=== PATIENT | male | born 1945 | race Caucasian/White ===

== ENCOUNTER 2016-11-29 18:26 | Inpatient (IN) ==
[2016-11-29] MEDS ORDERED: *HR* Morphine 2 MG/ML SYRINGE ONE (20:30)
[2016-11-29] MEDS ORDERED: Aspirin 81 MG TAB.CHEW ONE (20:30)
[2016-11-29] MEDS ORDERED: Nitroglycerin 0.4 MG TAB.SUBL SL PRN (20:40)
--- NOTE | 2016-11-29 20:40 | Internal Med History&Physical ---
Date of Encounter: 11/29/16 Time of Encounter: 20:15 Assessment and Plan (1) Chest pain Current visit: No Status: Acute Acute chest pain-rule out ACS Troponin negative, will trend troponin Continue aspirin and statin Cardiology consult-discussed with Dr. Jane, advise to hold off on any other anticoagulation as patient is already on Xarelto EKG done at [facility] shows nonspecific ST-T changes EKG done in the hospital show slight ST changes in lateral leads Chest x-ray-no acute process Qualifiers: Chest pain type: unspecified Qualified Code(s): R07.9 - Chest pain, unspecified (2) CAD (coronary artery disease) Current visit: Yes Status: Acute History of CAD status post multiple stents Continue aspirin and statin Status post pacemaker about 6 years ago Cardiology consult Echocardiogram done in September 2015 shows LVEF of 40% with regional wall motion abnormalities and also mild LV diastolic dysfunction Qualifiers: Coronary Disease-Associated Artery/Lesion type: unspecified vessel or lesion type Associated angina: with stable angina Qualified Code(s): I25.118 - Atherosclerotic heart disease of [place] coronary artery with other forms of angina pectoris (3) Hypertension Current visit: No Status: Chronic Essential hypertension, uncontrolled, continue home medications, monitor Qualifiers: Hypertension type: essential hypertension Qualified Code(s): I10 - Essential (primary) hypertension (4) Hyperlipidemia Current visit: No Status: Chronic Continue statin Qualifiers: Hyperlipidemia type: mixed hyperlipidemia Qualified Code(s): E78.2 - Mixed hyperlipidemia (5) DM type 2 (diabetes mellitus, type 2) Current visit: No Status: Chronic Type 2 diabetes mellitus, [id number], hyperglycemia Insulin sliding scale and glucose checks Qualifiers: Diabetes mellitus complication status: with kidney complications Diabetes mellitus complication detail: with chronic kidney disease 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 use: with skilled nursing use Chronic kidney disease stage: stage 3 (moderate) Qualified Code(s): E11.22 - Type 2 diabetes mellitus with diabetic chronic kidney disease; N18.3 - Chronic kidney disease, stage 3 ( moderate); 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 (6) Blindness Current visit: No Status: 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 (7) Pulmonary embolism on long-term anticoagulation therapy Current visit: Yes Status: Acute History of DVT and pulmonary embolism, anticoagulated with Xarelto (8) CKD (chronic kidney disease), stage III Current visit: Yes Status: Chronic CKD stage III, creatinine and GFR likely at baseline, continued to monitor (9) COPD (chronic obstructive pulmonary disease) Current visit: Yes Status: Chronic Chronic COPD, not in exacerbation Continue Symbicort Qualifiers: COPD type: unspecified COPD Qualified Code(s): J44.9 - Chronic obstructive pulmonary disease, unspecified (10) DVT prophylaxis Current visit: Yes Status: Acute Anticoagulated with Xarelto, continue Internal Medicine - H&P: HPI Chief complaint: Chest pain Admitted From: Hospital to Hospital Transfer History of present illness: Mr. Curtis is a 71 year old male with past medical history of coronary artery disease status post stents, hypertension, hyperlipidemia, diabetes, history of PE and DVT on anticoagulation, CKD stage III, COPD and blindness. He presents as a direct admit from [facility]. He was transferred here for chest pain to rule out ACS. On examination patient is awake and alert. Not in any distress. Patient is blind and is hard of hearing, but able to provide good history. Patient states his chest pain has been going on for about 1-2 weeks, and symptoms have gradually worsened. Patient states he has been to the ED multiple times over the past week for chest pain but was discharged home. This morning he states chest pain was more severe, and he decided to go to the ED. Complains of left-sided pain radiating to his left arm and to his jaw. Patient rates it about 6/10 intensity initially. States it is sharp and intermittent. No aggravating factors. No other associated symptoms Patient has been given nitroglycerin and pain has improved. Pain is 2 out of 10 at present. Patient also complains of mild shortness of breath. Denies headache denies lightheadedness denies palpitations denies vomiting or abdominal pain. No family members present at the time of admission. Patient is being admitted for chest pain to rule out ACS. Initial troponin here is negative. Cardiology has been consulted. Patient has been explained about his condition and plan of care. He understood and agreed. No unanswered questions. CODE STATUS full code. Past Med Surg Social Fam HX - Past Medical History Medical history: asthma, cardiomyopathy, CHF, COPD, coronary artery disease, diabetes, hypertension, myocardial infarction, pulmonary embolus, renal disease , valvular heart disease, other Psychiatric history: no psych history, depression, panic disorder - Past Surgical History Surgical History: angioplasty/stent, cataract, herniorrhaphy, prostatectomy - Social History Smoking Status: Never smoker Smokeless Tobacco Status: No Alcohol use: none Drug use: none Internal Medicine - H&P: Meds Atorvastatin [Lipitor] 80 mg PO QPM 01/07/15 [History] Carvedilol [Coreg] 6.25 tab PO DAILY 01/07/15 [History] Clopidogrel [Plavix] 75 mg PO DAILY 01/07/15 [History] Esomeprazole Magnesium [Nexium] 40 mg PO QAM 01/07/15 [History] Fluticasone/Salmeterol [Advair 250-50 Diskus] 1 inh IH BID 01/07/15 [History] Furosemide [Lasix] 20 mg PO DAILY 01/07/15 [History] Gemfibrozil [Lopid] 600 mg PO BIDWM 01/07/15 [History] LORazepam [Ativan] 0.5 mg PO HS 01/07/15 [History] Losartan [Cozaar] 25 mg PO QPM 01/07/15 [History] Montelukast [Singulair] 10 mg PO QPM 01/07/15 [History] Nitroglycerin [Nitrostat] 0.4 mg SL Q5-6MIN PRN 01/07/15 [History] OxyCODONE/APAP 5/325 [Percocet 5/325 MG] 1 each PO Q6HR PRN 01/07/15 [History] Ranolazine [Ranexa] 500 mg PO BID 01/07/15 [History] Rivaroxaban [Xarelto] 15 mg PO QPM 01/07/15 [History] Sertraline [Zoloft] 50 mg PO QPM 01/07/15 [History] Sitagliptin Phosphate [Januvia] 50 mg PO QAM 01/07/15 [History] Tamsulosin HCl [Flomax] 1 cap PO DAILY 01/07/15 [History] GuaiFENesin/Dextromethorphan [Robitussin/Dm] 10 ml PO Q6H #1 udc 03/11/15 [Rx] Nitroglycerin 0.4 mg SL Q5MIN PRN #1 vial 03/11/15 [Rx] Isosorbide MONOnitrate (24 HR) [Imdur] 60 mg PO BID #0 02/21/16 [Rx] HYDROcodone/Acet 5/325 mg [[place] 5-325 mg] 1 tab PO Q6H #10 tab 10/22/16 [Rx] Ondansetron ODT [Zofran ODT] 4 mg SL Q6HR #24 tab.rapdis 10/22/16 [Rx] Buspirone HCl [Buspar] 7.5 mg PO DAILY 11/22/16 [History] Famotidine [Heartburn Prevention] 20 mg PO DAILY 11/22/16 [History] Spironolactone [Aldactone] 25 mg PO DAILY 11/22/16 [History] Allergies No Known Allergies Allergy (Verified 01/06/15 18:52) All Systems PM: A 10-system review of systems was performed and is negative for pertinent findings except as documented above in the HPI. - Constitutional Constitutional: as per HPI, fatigue, weakness - EENT Eyes: other visual disturbances (patient is blind) - Cardiovascular Cardiovascular ROS IM: chest pain, dyspnea, dyspnea on exertion, no diaphoresis , no lightheadedness, no orthopnea, no syncope - Respiratory Respiratory: dyspnea, dyspnea on exertion, no wheezing, no chest congestion - Gastrointestinal Gastrointestinal: nausea, no abdominal pain, no cramping, no diarrhea, no vomiting - Musculoskeletal Musculoskeletal ROS IM: no arthralgias - Neurological Neurological ROS: no abnormal gait, no abnormal speech, no dizziness, no focal weakness, no lack of coordination - Constitutional Vitals: Temp Pulse Resp BP Pulse Ox 98.2 F 67 18 162/89 98 11/29/16 20:28 11/29/16 20:28 11/29/16 20:28 11/29/16 20:28 11/29/16 20:28 General appearance: Present: A&O X 3, pleasant, no acute distress, answers questions appropriately Exam: Patient is blind, and is also hard of hearing-but able to provide a good history - Head Head exam: Present: atraumatic - Eye Eye exam: Absent: scleral icterus Additional comments: Patient is blind - ENT ENT exam: Present: mucous membranes moist - Neck Neck exam general surgery: Present: supple - Respiratory Respiratory exam: Present: CTAB. Absent: rales, rhonchi, wheezes - Cardiovascular Cardiovascular exam: Present: RRR, +S1, +S2, systolic murmur - GI/Abdominal GI/Abdominal exam: Present: soft. Absent: distended, guarding, tenderness - Extremities Exam Extremities exam: Present: radial pulses palpable and symetrical. Absent: cyanotic, pedal edema - Neurological Exam Neurological exam: Present: alert, oriented X3, no focal deficits Internal Med - H&P Results - Labs CBC & Chem 7: 11/29/16 20:52 11/29/16 20:52
[2016-11-29] MEDS ORDERED: Acetaminophen 325 MG TABLET PO PRN (20:50)
[2016-11-29] MEDS ORDERED: Ondansetron 4 MG/2 ML VIAL IVP PRN (20:50)
[2016-11-29] MEDS ORDERED: *HR* Morphine 2 MG/ML SYRINGE IVP PRN (20:50)
[2016-11-29] MEDS ORDERED: Naloxone 0.4 MG/ML INJ IVP PRN (20:50)
[2016-11-29 21:09] LABS: Hematocrit 46.8 % (37.5-50.1); Hemoglobin 14.4 g/dL (12.9-16.9); Mean Corpuscular HGB Conc 30.8 g/dL (31.6-35.5); Mean Corpuscular Hemoglobin 24.5 pg (28.0-33.3); Mean Corpuscular Volume 79.6 fL (83.0-100.0); Mean Platelet Volume 10.5 fL (9.4-12.4); Platelet Count 221 K/mcL (140-400); Red Blood Count 5.88 M/mcL (4.19-5.50); Red Cell Distribution Width 16.2 % (11.5-14.5)
[2016-11-29 21:21] LABS: INR 1.4; Prothrombin Time 15.5 Seconds (9.4-12.1)
[2016-11-29 21:25] LABS: Albumin 3.5 g/dL (3.5-5.0); Albumin/Globulin Ratio 0.8 (1.1-2.2); Bilirubin,Total 0.5 mg/dL (0.2-1.2); Calcium 9.5 mg/dL (8.6-10.8); Globulin 4.2 g/dL (2.4-3.5); Potassium 4.3 mEq/L (3.5-4.5); Total Protein 7.7 g/dL (6.0-8.3)
[2016-11-29] MEDS ORDERED: Dextrose Gel 15 GM PO PRN ×2 (21:54)
[2016-11-29] MEDS ORDERED: *HR* Dextrose 50 % in Water (Syg) 50 ML SYRINGE IVP PRN (21:54)
[2016-11-29] MEDS ORDERED: D5% in Water 1,000 ML IVC PRN (21:54)
[2016-11-29] MEDS: Budesonide/Formoterol 80/4.5 MDI IH SCH (23:28)
[2016-11-29] MEDS: Ranolazine 500 MG TAB.ER.12H PO SCH (23:29)
[2016-11-29] MEDS: Famotidine 20 MG TABLET PO SCH (23:29)
[2016-11-30] MEDS: Insulin LISPRO 300 UNITS/3 ML VIAL SQ SCH ×3 (02:10→11:58)
[2016-11-30 03:58] LABS: Hematocrit 41.9 % (37.5-50.1); Hemoglobin 13.2 g/dL (12.9-16.9); Mean Corpuscular HGB Conc 31.5 g/dL (31.6-35.5); Mean Corpuscular Volume 79.2 fL (83.0-100.0); Mean Platelet Volume 11.2 fL (9.4-12.4); Platelet Count 187 K/mcL (140-400); Red Blood Count 5.29 M/mcL (4.19-5.50); Red Cell Distribution Width 16.3 % (11.5-14.5)
[2016-11-30 04:07] LABS: INR 1.3; Prothrombin Time 14.2 Seconds (9.4-12.1)
[2016-11-30 04:12] LABS: Calcium 8.7 mg/dL (8.6-10.8); Potassium 4.2 mEq/L (3.5-4.5)
[2016-11-30] MEDS: Budesonide/Formoterol 80/4.5 MDI IH SCH (07:56)
--- NOTE | 2016-11-30 08:02 | Cardiology Consult Note ---
<Toy Cavanaugh - Last Filed: 11/30/16 11:12> Date of Encounter: 11/30/16 Time of Encounter: 08:00 Assessment and Plan (1) Chest pain Current Visit: No Status: Acute Per Cardiology: Patient experiencing atypical left anterior chest wall pain reproducible with palpation and worsening with movement. Also, having continuous left shoulder and jaw pain. Last stress test September 2015 showed gated EF 40%, no fredis-infarct ischemia noted. Last cardiology note reviewed from December 2015 and patient was on long-acting nitrate and on Ranexa 500 mg by mouth twice a day. Will increase to 1000 mg by mouth twice a day. Will resume Imdur. Troponins negative 3. 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 Discussed and reviewed with Dr. Jane, recommend medical management. Has follow-up scheduled with cardiology in the next few weeks. We' ll sign off, re-consult as needed. Qualifiers: Chest pain type: unspecified Qualified Code(s): R07.9 - Chest pain, unspecified (2) CAD (coronary artery disease) Current Visit: Yes Status: Chronic Per Cardiology: Last heart catheterization at the [facility] December 2014 showed patent proximal LAD stents with 20% in-stent restenosis, proximal circumflex 40% with a small OM 80% lesion, patent mid RCA stents, proximal RCA 30%, distal RCA 20%. Per last cardiology office note, patient had catheterization at [facility] May 2015 which showed left main 25%, 50% in-stent restenosis of proximal LAD with FFR showing no hemodynamic significance, mid LAD 20%, proximal RCA 20% in-stent restenosis, 10% mid RCA, distal RCA 20%, proximal circumflex 20%, and mid circumflex 10% lesions. On Ranexa, BB, and ARB. Will add asa. Qualifiers: Coronary Disease-Associated Artery/Lesion type: unspecified vessel or lesion type Associated angina: with stable angina Qualified Code(s): I25.118 - Atherosclerotic heart disease of [place] coronary artery with other forms of angina pectoris (3) Pulmonary embolism on long-term anticoagulation therapy Current Visit: Yes Status: Chronic Per Cardiology: Patient with history of DVT and PE. Appears to be on Xarelto-- patient believes has been discontinued since September 2016. Recommend continue if able and deemed clinically appropriate. (4) Valvular heart disease Current Visit: No Status: Chronic Per Cardiology: Last echo September 2015 showed EF 40%, mild diastolic dysfunction, normal RV structure and function, moderate aortic regurgitation, and mild MR. her last office note patient has been seen by Dr. Lilian ORTIZ, patient unaware of any valvular procedures. Will follow-up in outpatient setting. (5) History of cardiac pacemaker Current Visit: Yes Status: Chronic Per Cardiology: Patient reports history of pacemaker and concerns of "not functioning properly ". No significant events noted on telemetry. Patient does have [employer] pacemaker with dual chamber pacer check normal October 24, 2016 with one ventricular high rate of 6 beats September 06, 2016 with battery life greater than 5 years. Will follow-up in 6 months with pacer check as scheduled. Discussion w patient/family: The assessment and plan as outlined above was discussed with the patient who expressed understanding and agreement. All questions were answered. Thank you for involving us in the care of your patient. Please call with any questions. Consult to palliative care placed for evaluation and clarification regarding potential hospice care and CODE STATUS. History of Present Illness Consult date: 11/30/16 Consult reason: CP Chief complaint: CP History of present illness: Mr. Curtis is a 71 year old male with a relevant past medical history of CAD, diabetes mellitus type 2, hypertension, hyperlipidemia, legally blind, GERD, COPD, CK D stage IIIB, history of DVT and PE, and pacemaker. Cardiology consult for chest pain. Patient reports left anterior chest wall pinpoint discomfort worse with palpation and movement. Patient also reports experiencing left-sided jaw pain and left shoulder pain continuous. He reports shortness of breath at rest and with exertion about baseline. Reports overall fatigue about baseline. He reports concerns" pacer not working properly ". He reports he believes in [place] he was recommended to be changed in May 2016. Denies any dizziness , syncope, falls. Denies any active bleeding or blood loss. Patient currently on Xarelto, however patient reports was discontinued September 2016 when he was enrolled " hospice care". He reports he lives at home alone and nurses provide him pills. He reports he believes he is DNR DNI, however listed currently is full code. He reports recently was residing in a alf in [place]. Past Med Surg Social Fam HX - Past Medical History Attestation: Yes The following information was validated with the patient. 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) Medical history: asthma, cardiomyopathy, CHF, COPD, coronary artery disease, diabetes, hypertension, myocardial infarction, pulmonary embolus, renal disease , valvular heart disease, other Psychiatric history: no psych history, depression, panic disorder - Past Surgical History Surgical History: angioplasty/stent, cataract, herniorrhaphy, prostatectomy - Social History Smoking Status: Never smoker Smokeless Tobacco Status: No Alcohol use: none Drug use: none Medications and Allergies Carvedilol [Coreg] 6.25 tab PO DAILY 01/07/15 [History] Furosemide [Lasix] 20 mg PO DAILY 01/07/15 [History] Losartan [Cozaar] 25 mg PO QPM 01/07/15 [History] Rivaroxaban [Xarelto] 15 mg PO QPM 01/07/15 [History] Sertraline [Zoloft] 50 mg PO QPM 01/07/15 [History] Sitagliptin Phosphate [Januvia] 50 mg PO QAM 01/07/15 [History] Tamsulosin HCl [Flomax] 0.4 mg PO DAILY 01/07/15 [History] Isosorbide MONOnitrate (24 HR) [Imdur] 60 mg PO BID #0 02/21/16 [Rx] Buspirone HCl [Buspar] 7.5 mg PO DAILY 11/22/16 [History] Spironolactone [Aldactone] 25 mg PO DAILY 11/22/16 [History] Tramadol HCl [Ultram] 50 mg PO Q4H PRN 11/29/16 [History] Allergies No Known Allergies Allergy (Verified 01/06/15 18:52) All Systems Review: A 10-system review of systems was performed and is negative for pertinent findings except as documented above in the HPI. - Constitutional Constitutional: fatigue - Cardiovascular Cardiovascular: as per HPI, chest pain at rest, dyspnea at rest, dyspnea on exertion, radiating jaw, neck or arm pain Physical Examination Vital Signs, Last 4 Hours Resp Pulse Ox 11/30/16 07:56 20 99 Selected Entries 11/29/16 20:28 11/29/16 23:31 11/30/16 03:24 Temperature 97.9 F Pulse Rate 67 Respiratory Rate 18 Blood Pressure 162/89 136/74 149/91 General: Conversant, No Apparent Distress HEENT: Atraumatic, Normocephaly, Mucus Membranes Moist, Other (Legally blind, mild hard of hearing) Neck: No JVD, Normal carotid pulses Cardiac: Reg Rate and Rhythm, Normal S1 and S2, No Murmur Lungs: Normal Breath Sounds, No Wheeze, Rales, Rhonchi Neuro: Alert and responsive, No focal deficits noted Abdomen: Soft, Non-Tender Skin: No rashes noted on visualized skin Musculoskeletal: Other (Left anterior chest wall tenderness reproducible today with palpation) Extremities: No Edema, Normal Pulses Results 11/30/16 03:15 11/30/16 03:15 Lab Results Laboratory Tests 11/29/16 11/29/16 11/30/16 11:45 20:52 03:15 INR 1.3 Creatinine 1.59 H 1.75 H Est GFR (Non-Af Amer) 43 L 38 L 11/30/16 03:15 INR Creatinine 1.54 H Est GFR (Non-Af Amer) 45 L 11/29/16 11/29/16 11/29/16 20:52 20:52 20:54 Magnesium 2.0 AST 24 ALT 19 Troponin I 0.02 B-Natriuretic Peptide 28 11/30/16 03:15 Magnesium AST ALT Troponin I 0.02 B-Natriuretic Peptide ITS Impressions Chest X-Ray 11/29/16 20:52 IMPRESSION: No acute process. D/ / Freddy Terrazas MD / Freddy Terrazas MD Interpreting Provider: Freddy Terrazas MD Intake & Output 11/27/16 11/28/16 11/29/16 11/30/16 23:59 23:59 23:59 23:59 Output Total 450 / 450 150 / 150 Balance -450 / -450 -150 / -150 Weight 103.7 kg 103.7 kg Active Medications Acetaminophen (Tylenol) 650 mg PO Q6HR PRN PRN Reason: Mild Pain (1-3) Stop: 05/31/17 20:51 Budesonide/Formoterol Fumarate (Symbicort) 2 puff IH BIDR KANA Stop: 05/31/17 22:01 Last Admin: 11/30/16 07:56 Dose: 2 puff Carvedilol (Coreg) 6.25 mg PO DAILY [facility] PRN Reason: Protocol Stop: 06/01/17 09:01 Dextrose/Water (Dextrose 50% (Syg)) 25 ml IVP AD PRN PRN Reason: Hypoglycemia Stop: 05/31/17 21:55 Famotidine (Pepcid) 20 mg PO DAILY [facility] PRN Reason: Protocol Stop: 05/31/17 20:46 Last Admin: 11/29/16 23:29 Dose: 20 mg Gemfibrozil (Lopid) 600 mg PO BIDWM [facility] Stop: 06/01/17 08:01 Glucagon (Glucagen) 1 mg IM ONCE PRN PRN Reason: Hypoglycemia Stop: 05/31/17 21:55 Glucose (Gluctose) 15 gm PO ONCE PRN PRN Reason: Hypoglycemia Stop: 05/31/17 21:55 Glucose (Gluctose) 30 gm PO ONCE PRN PRN Reason: Hypoglycemia Stop: 05/31/17 21:55 Dextrose (Dextrose 5%) 1,000 mls @ 100 mls/hr IVC .Q10H PRN PRN Reason: HYPOGLYCEMIA Stop: 05/31/17 21:55 Insulin Human Lispro (Humalog) 0 units SQ Q6HR [facility] PRN Reason: Protocol Stop: 06/01/17 00:01 Last Admin: 11/30/16 07:00 Dose: Not Given Losartan Potassium (Cozaar) 25 mg PO QPM [facility] PRN Reason: Protocol Stop: 06/01/17 18:01 Morphine Sulfate (Morphine Sulfate) 2 mg IVP Q4HR PRN PRN Reason: Severe Pain (7-10) Stop: 05/31/17 20:51 Naloxone HCl (Narcan) 0.4 mg IVP Q2MIN PRN PRN Reason: Opioid Reversal Stop: 05/31/17 20:51 Nitroglycerin (Nitroglycerin) 0.4 mg SL Q5MIN PRN PRN Reason: Chest Pain Stop: 05/31/17 20:41 Ondansetron HCl (Zofran) 4 mg IVP Q8HR PRN PRN Reason: Nausea And Vomiting Stop: 05/31/17 20:51 Ranolazine (Ranexa) 500 mg PO BID [facility] Stop: 05/31/17 21:01 Last Admin: 06/23/17 23:29 Dose: 500 mg Rivaroxaban (Xarelto) 15 mg PO QPM [facility] Stop: 06/01/17 18:01 Spironolactone (Aldactone) 25 mg PO DAILY [facility] Stop: 06/01/17 09:01 Tamsulosin HCl (Flomax) 0.4 mg PO HS [facility] PRN Reason: Protocol Stop: 06/01/17 21:01 - Imaging and Cardiology Chest Xray: report reviewed Stress Test: report reviewed Cardiac cath: report reviewed - EKG Interpretation EKG results cardiology: personally reviewed, normal ECG, sinus rhythm, other ( Currently sinus rhythm in the 70s, 24 times reviewed with average heart rate 68 , no significant events noted) Consult Discharge Plan - Plan Referrals: NO,PCP [Primary Care Provider] - <Soraida Jane - Last Filed: 11/30/16 11:26> Date of Encounter: 11/30/16 Assessment and Plan Discussion w patient/family: The assessment and plan as outlined above was discussed with the patient and/or family members who expressed understanding and agreement. All questions were answered. Thank you for involving us in the care of your patient. Please call with any questions. History of Present Illness History of present illness: Mr. Curtis is a 71 year old male All Systems Review: A 10-system review of systems was performed and is negative for pertinent findings except as documented above in the HPI. Physical Examination Vital Signs, Last 4 Hours Temp Pulse Resp BP Pulse Ox 11/30/16 08:08 97.7 F 68 18 133/73 95 11/30/16 08:00 95 11/30/16 07:56 20 99 Results 11/30/16 03:15 11/30/16 03:15 Lab Results 11/29/16 11/29/16 11/29/16 20:52 20:52 20:52 WBC 10.3 Hgb 14.4 Hct 46.8 Plt Count 221 INR 1.4 Sodium Potassium Chloride Carbon Dioxide BUN Creatinine Glucose Calcium Magnesium Total Bilirubin AST ALT Alkaline Phosphatase Troponin I 0.02 B-Natriuretic Peptide 11/29/16 11/29/16 11/30/16 20:52 20:54 03:15 WBC Hgb Hct Plt Count INR Sodium 140 Potassium 4.3 Chloride 106 Carbon Dioxide 26 BUN 25 Creatinine 1.75 H Glucose 107 H Calcium 9.5 Magnesium 2.0 Total Bilirubin 0.5 AST 24 ALT 19 Alkaline Phosphatase 63 Troponin I 0.02 B-Natriuretic Peptide 28 11/30/16 11/30/16 11/30/16 03:15 03:15 03:15 WBC 9.5 Hgb 13.2 Hct 41.9 Plt Count 187 INR 1.3 Sodium 140 Potassium 4.2 Chloride 108 Carbon Dioxide 23 BUN 25 Creatinine 1.54 H Glucose 103 H Calcium 8.7 Magnesium Total Bilirubin AST ALT Alkaline Phosphatase Troponin I B-Natriuretic Peptide 11/30/16 08:25 WBC Hgb Hct Plt Count INR Sodium Potassium Chloride Carbon Dioxide BUN Creatinine Glucose Calcium Magnesium Total Bilirubin AST ALT Alkaline Phosphatase Troponin I 0.01 B-Natriuretic Peptide - Attending Attestation I examined this patient and my medical decision-making was reviewed with the SENIOR TELECOMMUNICATIONS TECHNICIAN/PA/Advanced Practice Nurse/Resident Physician. I agree with the documented findings, disposition and treatment plan. We have been asked to evaluate Mr. Curtis for chest pain which appears to be largely reproducible on exam. His troponins are negative and there are no new ECG changes when compared to prior ECG. No further testing is warranted at this time. Recommend continued medical management. In addition, PPM was recently interrogated demonstrating normal function and battery longevity 5 years. Will sign off. Please call with questions.
[2016-11-30] MEDS: Famotidine 20 MG TABLET PO SCH (08:09)
[2016-11-30] MEDS: Ranolazine 500 MG TAB.ER.12H PO SCH (08:09)
[2016-11-30] MEDS ORDERED: Spironolactone 25 MG TABLET PO SCH (09:00)
[2016-11-30] MEDS ORDERED: Ranolazine 500 MG TAB.ER.12H PO SCH (10:05)
[2016-11-30] MEDS ORDERED: Aspirin 81 MG TAB.CHEW PO SCH (10:45)
[2016-11-30] MEDS ORDERED: Isosorbide MONOnitrate (24 HR) 30 MG TAB.ER.24H PO SCH (10:45)
[2016-11-30 11:23] VITALS: BP 123/74
--- NOTE | 2016-11-30 12:23 | Discharge Summary ---
Date of Encounter: 11/30/16 Time of Encounter: 12:21 - Discharge Diagnosis (1) Chest pain Priority: Primary Status: Acute Comments: Patient experiencing atypical left anterior chest wall pain reproducible with palpation and worsening with movement. Also, having continuous left shoulder and jaw pain. Last stress test September 2015 showed gated EF 40%, no fredis-infarct ischemia noted. Increase Ranexa to 1000 mg by mouth twice a day. Will resume Imdur. Qualifiers: Chest pain type: unspecified Qualified Code(s): R07.9 - Chest pain, unspecified (2) DM type 2 (diabetes mellitus, type 2) Priority: Secondary Status: Chronic Qualifiers: Diabetes mellitus complication status: with kidney complications Diabetes mellitus complication detail: with chronic kidney disease Diabetes mellitus jail insulin use: with terminal worker use Chronic kidney disease stage: stage 3 (moderate) Qualified Code(s): E11.22 - Type 2 diabetes mellitus with diabetic chronic kidney disease; N18.3 - Chronic kidney disease, stage 3 ( moderate); Z79.4 - terminal worker (current) use of insulin (3) Blindness Priority: Secondary Status: Chronic (4) Valvular heart disease Priority: Secondary Status: Chronic Comments: ast echo September 2015 showed EF 40%, mild diastolic dysfunction, normal RV structure and function, moderate aortic regurgitation, and mild MR. her last office note patient has been seen by Dr. Lilian ORTIZ, patient unaware of any valvular procedures (5) Pulmonary embolism on long-term anticoagulation therapy Priority: Secondary Status: Chronic Comments: on Xarelto (6) CKD (chronic kidney disease), stage III Priority: Secondary Status: Chronic (7) COPD (chronic obstructive pulmonary disease) Priority: Secondary Status: Chronic Qualifiers: COPD type: unspecified COPD Qualified Code(s): J44.9 - Chronic obstructive pulmonary disease, unspecified (8) History of cardiac pacemaker Priority: Secondary Status: Chronic - Discharge Medications Prescriptions: Isosorbide MONOnitrate (24 HR) [Imdur] 60 mg PO DAILY #30 tab.er.24h LORazepam [Ativan] 0.5 mg PO HS #15 tablet Oxycodone HCl/Acetaminophen [Percocet 5-325 mg Tablet] 1 tab PO Q6H PRN #20 tablet PRN Reason: Pain Ranolazine [Ranexa] 1,000 mg PO BID #60 tab.er.12h Rivaroxaban [Xarelto] 15 mg PO QPM #30 tablet Home Medications: Carvedilol [Coreg] 6.25 tab PO DAILY 01/07/15 [History] Furosemide [Lasix] 20 mg PO DAILY 01/07/15 [History] Losartan [Cozaar] 25 mg PO QPM 01/07/15 [History] Sertraline [Zoloft] 50 mg PO QPM 01/07/15 [History] Sitagliptin Phosphate [Januvia] 50 mg PO QAM 01/07/15 [History] Tamsulosin HCl [Flomax] 0.4 mg PO DAILY 01/07/15 [History] Buspirone HCl [Buspar] 7.5 mg PO DAILY 11/22/16 [History] Spironolactone [Aldactone] 25 mg PO DAILY 11/22/16 [History] Tramadol HCl [Ultram] 50 mg PO Q4H PRN 11/29/16 [History] Atorvastatin Calcium [Lipitor] 80 mg PO DAILY 11/30/16 [History] Esomeprazole Magnesium [Nexium] 40 mg PO DAILY 11/30/16 [History] Gemfibrozil [Lopid] 600 mg PO DAILY 11/30/16 [History] Isosorbide MONOnitrate (24 HR) [Imdur] 60 mg PO DAILY #30 tab.er.24h 11/30/16 [ Rx] LORazepam [Ativan] 0.5 mg PO HS #15 tablet 11/30/16 [Rx] Montelukast [Singulair] 10 mg PO DAILY 11/30/16 [History] Oxycodone HCl/Acetaminophen [Percocet 5-325 mg Tablet] 1 tab PO Q6H PRN #20 tablet 11/30/16 [Rx] Ranolazine [Ranexa] 1,000 mg PO BID #60 tab.er.12h 11/30/16 [Rx] Rivaroxaban [Xarelto] 15 mg PO QPM #30 tablet 11/30/16 [Rx] Allergies/Adverse Reactions: Allergies No Known Allergies Allergy (Verified 01/06/15 18:52) Procedures/tests Complete & Pending: Procedures Performed prior 72 hours Category Date Time Status ECG 12 lead ECG [ECG] AM 0600 Y 11/30/16 06:00 Ordered Date of admission: 11/29/16 20:15 Primary care physician: PCP NO Consults: 11/29/16 20:47 Consult to Cardiology [CONS] Stat Comment: discussed with Dr Jane Consulting Provider: Cardiology Whit Reason for Consult: Chest pain, ST changes on EKG Time Notified: 20:47 Call Completed: Yes 11/29/16 20:53 Consult to Nutrition [CONS] Routine Comment: Consulting Provider: NUTRITION Reason for Dietary Consult: MST Score Consult to Sales Development Director [CONS] Routine Reason for SW Consult: discharge planning, prior SNF placement--blind, [facility] 11/30/16 10:04 Consult to Palliative Care [CONS] Routine Comment: discussed with Michelle Consulting Provider: Palliative Care Whit Reason for Consult: Patient reports in "Hospice Care" at home, wishes to be DNR/DNI. Call Completed: Yes - Patient Status Disposition: Home Health Service Condition: Fair Overall status at discharge: patient is progressing back to baseline - Discharge Instructions Follow Up With: NO,PCP [Primary Care Provider] - Additional Instructions: Follow-up with primary care physician within the next 7 days. Increase dose of Ranexa up to 2000 g twice a day, continue Imdur. Follow up with cardiology within the next month - Diet and Activity Activity: increase activity as tolerated Diet: diabetic diet Hospital course: Mr. Curtis is a 71 year old male with a relevant past medical history of CAD, diabetes mellitus type 2 not insulin-dependent, hypertension, hyperlipidemia, legally blind, GERD, COPD not oxygen dependent, CK D stage IIIB, history of DVT and PE on Xarelto, systolic CHF and pacemaker. Patient reported left anterior chest wall pinpoint discomfort worse with palpation and movement. Patient also reports experiencing left-sided jaw pain and left shoulder pain continuous. Shortness of breath at rest and with exertion about baseline. Reported overall fatigue about baseline. Cconcerns" pacer not working properly ". He reports he believes in [place] he was recommended to be changed in May 2016. Denies any dizziness, syncope, falls. Denies any active bleeding or blood loss. He is DNR DNI. He reports recently was residing in a penitentiary in [place]. Troponins negative 3. 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 Last heart catheterization at the [facility] December 2014 showed patent proximal LAD stents with 20% in-stent restenosis, proximal circumflex 40% with a small OM 80% lesion, patent mid RCA stents, proximal RCA 30%, distal RCA 20%. Catheterization at [facility] May 2015 which showed left main 25%, 50% in-stent restenosis of proximal LAD with FFR showing no hemodynamic significance, mid LAD 20%, proximal RCA 20% in-stent restenosis, 10% mid RCA, distal RCA 20%, proximal circumflex 20%, and mid circumflex 10% lesions. The patient was evaluated by cardiology, Ranexa was increased to 1000 mg twice a day and Imdur was restarted. 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 Absent: lymphadenopathy - Respiratory Respiratory exam: Present: decreased breath sounds, CTAB. Absent: accessory muscle use, rales, rhonchi, wheezes - Cardiovascular Cardiovascular exam: Present: RRR, +S1, +S2. Absent: diastolic murmur, gallop, rubs, systolic murmur - GI/Abdominal GI/Abdominal exam: Present: normal bowel sounds, soft, no peritoneal signs. Absent: distended, tenderness - Extremities Exam Extremities exam: Present: warm, radial pulses palpable and symetrical. Absent : calf tenderness, cyanotic, pedal edema - Neurological Exam Neurological exam: Present: CN II-XII intact, oriented X3, no focal deficits. Absent: pronater drift, facial droop, speech deficit - Skin Skin exam: Present: dry, intact
--- NOTE | 2016-11-30 12:34 | Physician Discharge Referral ---
Home Health/Hosp Referral Info Transfer to: Home Health Provider in Charge Post Discharge: PCP - Diagnosis (1) Chest pain Status: Acute (2) DM type 2 (diabetes mellitus, type 2) Status: Chronic (3) Blindness Status: Chronic (4) Valvular heart disease Status: Chronic (5) Pulmonary embolism on long-term anticoagulation therapy Status: Chronic (6) CKD (chronic kidney disease), stage III Status: Chronic (7) COPD (chronic obstructive pulmonary disease) Status: Chronic (8) History of cardiac pacemaker Status: Chronic - Respiratory Orders Smoking Cessation: Smoking cessation has been advised. For more information, call the [place] Tobacco Quit Line at 7-993-FCHU-NOW. - Diet/Nutrition Diet/Nutrition Orders: No Added Salt (CATRINA) - Services Needed Following services are medically necessary services: Home Health Aide Home Care Orders: Follow-up with primary care physician within the next 7 days. Increase dose of Ranexa up to 2000 g twice a day, continue Imdur. Follow up with cardiology within the next month - Transfer Medications Prescriptions: Isosorbide MONOnitrate (24 HR) [Imdur] 60 mg PO DAILY #30 tab.er.24h LORazepam [Ativan] 0.5 mg PO HS #15 tablet Oxycodone HCl/Acetaminophen [Percocet 5-325 mg Tablet] 1 tab PO Q6H PRN #20 tablet PRN Reason: Pain Ranolazine [Ranexa] 1,000 mg PO BID #60 tab.er.12h Rivaroxaban [Xarelto] 15 mg PO QPM #30 tablet Home Medications: Carvedilol [Coreg] 6.25 tab PO DAILY 01/07/15 [History] Furosemide [Lasix] 20 mg PO DAILY 01/07/15 [History] Losartan [Cozaar] 25 mg PO QPM 01/07/15 [History] Sertraline [Zoloft] 50 mg PO QPM 01/07/15 [History] Sitagliptin Phosphate [Januvia] 50 mg PO QAM 01/07/15 [History] Tamsulosin HCl [Flomax] 0.4 mg PO DAILY 01/07/15 [History] Buspirone HCl [Buspar] 7.5 mg PO DAILY 11/22/16 [History] Spironolactone [Aldactone] 25 mg PO DAILY 11/22/16 [History] Tramadol HCl [Ultram] 50 mg PO Q4H PRN 11/29/16 [History] Atorvastatin Calcium [Lipitor] 80 mg PO DAILY 11/30/16 [History] Esomeprazole Magnesium [Nexium] 40 mg PO DAILY 11/30/16 [History] Gemfibrozil [Lopid] 600 mg PO DAILY 11/30/16 [History] Isosorbide MONOnitrate (24 HR) [Imdur] 60 mg PO DAILY #30 tab.er.24h 11/30/16 [ Rx] LORazepam [Ativan] 0.5 mg PO HS #15 tablet 11/30/16 [Rx] Montelukast [Singulair] 10 mg PO DAILY 11/30/16 [History] Oxycodone HCl/Acetaminophen [Percocet 5-325 mg Tablet] 1 tab PO Q6H PRN #20 tablet 11/30/16 [Rx] Ranolazine [Ranexa] 1,000 mg PO BID #60 tab.er.12h 11/30/16 [Rx] Rivaroxaban [Xarelto] 15 mg PO QPM #30 tablet 11/30/16 [Rx] Allergies/Adverse Reactions: Allergies No Known Allergies Allergy (Verified 01/06/15 18:52) Certification: Further, I certify that my clinical findings support that this patient is homebound (i.e. absences from home require considerable and taxing effort and are for medical reasons or holiness services or infrequently or short duration when for other reasons) because: Homebound Reason: Patient requires assistance of a person or device to safely leave home Attestation: My signature below is to certify that this patient is under my care and that I, or nurse practitioner, or a physician's printing bindery assistant working with me, has a face-to -face encounter with this patient.
[2016-11-30] MEDS ORDERED: Mag Hydrox/Al Hydrox/Simeth 30 ML UDC PO PRN (14:15)
[2016-11-30] MEDS ORDERED: *HR* Rivaroxaban 15 MG TABLET PO SCH (18:00)
--- NOTE | 2016-12-01 12:13 | Electrocardiograph Report ---
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
== END 2016-11-30 16:11 | disposition home health service (06) | DRG 303 ==
LOC: 2ANU
PROVIDERS: ADMIT Internal Medicine; ATTEND Internal Medicine

== ENCOUNTER 2017-02-03 09:17 | Observation (INO) ==
[2017-02-03] MEDS ORDERED: Lidocaine -MPF 1% 2 ML VIAL ID ONE (10:00)
[2017-02-03] MEDS ORDERED: Plasma-Lyte A (PH 7.4) 1,000 ML IVC SCH ×2 (10:00→11:30)
[2017-02-03] MEDS ORDERED: Albuterol 2.5 MG/3 ML NEBULIZER IH ONE ×2 (10:00→11:20)
[2017-02-03] MEDS ORDERED: cefOXitin 2,000 MG in D5% in Water (Mini-Bag+) 100 ML IVPB ONE (10:00)
--- NOTE | 2017-02-03 10:00 | Anesthesia Evaluation PreOp ---
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 MANAGER History: Denies Any Significant HX, Other (blind bilateral eyes) Other Medical History: Diabetes Type II Anesthesia History: No Prior Anesthetic Complications, Past Anesthesia (Hernia, prostatectomy) Alcohol Use: none Drug use: none Medications and Allergies Carvedilol [Coreg] 6.25 tab PO DAILY 01/07/15 [History] Furosemide [Lasix] 20 mg PO DAILY 01/07/15 [History] Losartan [Cozaar] 25 mg PO QPM 01/07/15 [History] Sertraline [Zoloft] 50 mg PO QPM 01/07/15 [History] Sitagliptin Phosphate [Januvia] 50 mg PO QAM 01/07/15 [History] Tamsulosin HCl [Flomax] 0.4 mg PO DAILY 01/07/15 [History] Buspirone HCl [Buspar] 7.5 mg PO DAILY 11/22/16 [History] Spironolactone [Aldactone] 25 mg PO DAILY 11/22/16 [History] Tramadol HCl [Ultram] 50 mg PO Q4H PRN 11/29/16 [History] Atorvastatin Calcium [Lipitor] 80 mg PO DAILY 11/30/16 [History] Esomeprazole Magnesium [Nexium] 40 mg PO DAILY 11/30/16 [History] Gemfibrozil [Lopid] 600 mg PO DAILY 11/30/16 [History] Isosorbide MONOnitrate (24 HR) [Imdur] 60 mg PO DAILY #30 tab.er.24h 11/30/16 [ Rx] LORazepam [Ativan] 0.5 mg PO HS #15 tablet 11/30/16 [Rx] Montelukast [Singulair] 10 mg PO DAILY 11/30/16 [History] Omeprazole [PriLOSEC] 40 mg PO DAILY #30 cap 11/30/16 [Rx] Oxycodone HCl/Acetaminophen [Percocet 5-325 mg Tablet] 1 tab PO Q6H PRN #20 tablet 11/30/16 [Rx] Ranolazine [Ranexa] 1,000 mg PO BID #60 tab.er.12h 11/30/16 [Rx] Rivaroxaban [Xarelto] 15 mg PO QPM #30 tablet 11/30/16 [Rx] 3 Allergy/AdvReac Type Severity Reaction Status Date / Time No Known Allergies Allergy Verified 01/28/17 12:31 - Meds/Allergy Pre-op Review Medications Reviewed: Yes Allergies Reviewed: Yes Beta Blockers on Current Med List: Yes If Beta Blockers taken, Date/Time (Last Dose taken): unsure, checking with home health at time of charting Anesthesia Results - Labs Laboratory Tests 11/29/16 11/30/16 01/28/17 11:45 03:15 12:36 Hgb 13.9 Hct 46.6 Plt Count 219 PT 14.2 H INR 1.3 APTT 41.0 H Sodium Potassium BUN Creatinine 01/28/17 12:36 Hgb Hct Plt Count PT INR APTT Sodium 141 Potassium 4.6 H BUN 15 Creatinine 1.92 H - Imaging EKG: report reviewed Additional studies: Mild-moderate LV systolic dysfunction, LVEF 40%. There are regional wall motion abnormalities, see diagram below. Mild concentric left ventricular hypertrophy. Mild left ventricular diastolic dysfunction. Normal right ventricular structure and function. A device lead was visualized in the right atrium and right ventricle. Mildly dilated left atrium. Moderate aortic regurgitation. Per Cardiology: Last heart catheterization at the [facility] December 2014 showed patent proximal LAD stents with 20% in-stent restenosis, proximal circumflex 40% with a small OM 80% lesion, patent mid RCA stents, proximal RCA 30%, distal RCA 20%. Anesthesia Exam Selected Entries 02/03/17 10:06 Temperature 97.8 F Pulse Rate 73 Respiratory Rate 18 Blood Pressure 157/85 O2 Sat by Pulse Oximetry 98 Weight: 237lbs NPO (# of Hours): 8 Pain Scale: 0 Pain Scale Used: Numeric (1 - 10) - HEENT Pupil (Motor): EOMI Mallampati: II Teeth: Edentulous Oral Opening: Greater than 3 - CUSTOMS BROKERAGE MANAGER LOC: Oriented CUSTOMS BROKERAGE MANAGER Motor: Normal RUE, Normal LUE, Normal RLE, Normal LLE, Normal Face CUSTOMS BROKERAGE MANAGER Sensory: Normal: RUE, LUE, RLE, LLE, Face - Cardiac Rhythm: Regular Murmur: None - Pulmonary Breath Sounds: bilateral Clear, bilateral Rales, bilateral Rhonchi Respiratory Effort: Symmetrical Anesthesia Assess/Plan ASA Score: 3 Modified [place] Scale for Level of Consciousness: Cooperative, oriented, and tranquil Anesthetic Plan: General Monitoring Plan: Standard Monitors Recovery Plan: PACU (Discussed risks of GA, questions answered and agrees to proceed)
[2017-02-03] MEDS ORDERED: *HR* FentaNYL (PF) 100 MCG/2 ML VIAL ONE (10:16)
[2017-02-03] MEDS ORDERED: *HR* Propofol 200 MG/20 ML VIAL IVP ONE (10:16)
[2017-02-03] MEDS ORDERED: Lidocaine -MPF 4% 5 ML AMPUL ONE (10:18)
[2017-02-03] MEDS ORDERED: *HR* Rocuronium Bromide 50 MG/5 ML VIAL ONE (10:18)
[2017-02-03] MEDS ORDERED: Lidocaine -MPF 2% 2 ML VIAL ONE (10:18)
[2017-02-03] MEDS ORDERED: *HR* Succinylcholine 200 MG/10 ML VIAL IVP ONE (10:18)
[2017-02-03] MEDS ORDERED: Naloxone 0.4 MG/ML INJ IVP PRN ×2 (11:20→14:39)
[2017-02-03] MEDS ORDERED: *HR* Meperidine 25 MG/ML SYRINGE IVP PRN (11:20)
[2017-02-03] MEDS ORDERED: *HR* Labetalol 20 MG/4 ML SYRINGE IVP PRN (11:20)
[2017-02-03] MEDS ORDERED: Ondansetron 4 MG/2 ML VIAL IVP ONE (11:20)
--- NOTE | 2017-02-03 11:21 | History & Physical Report ---
Date of Encounter: 02/03/17 Time of Encounter: 11:20 24 Hour HP Update - Instructions Instructions: If the History and Physical is less than 30 days old and was completed prior to A.M. admission and or procedure and has NOT been updated on calendar day of procedure please complete this update prior to performing procedure. - Update Patient reports changes in Medical Condition: No Changes in examination, assessment, or condition: No Changes in Medication: No Surgery Remains Indicated: Yes Consent for Planned Operative Procedure(s) Verified: Yes - Pre-Operative Checklist Prophylactic Antibiotic Ordered: Yes Home Medications Include Beta Monika: Yes Is VTE Prophylaxis Indicated?: Yes
[2017-02-03] MEDS ORDERED: Neostigmine Methylsulfate 3 MG/3 ML SYRINGE ONE (12:06)
[2017-02-03] MEDS ORDERED: Ondansetron 4 MG/2 ML VIAL ONE (12:11)
[2017-02-03] MEDS ORDERED: Dexamethasone 4 MG/ML VIAL ONE (12:11)
[2017-02-03] MEDS ORDERED: Ketamine *HR* 500 MG/10 ML MDV ONE (12:51)
--- NOTE | 2017-02-03 12:51 | Operative Note ---
Date of procedure: 02/03/17 Pre-op diagnosis: symptomatic cholelithiasis Post-op diagnosis: same Procedure: laparoscopic cholecystectomy Complications: none immediate Anesthesia: GETA, local Local Anesthetics: 0.5% Sensorcaine HCL SubQ (cc) (30) Surgeon: Kaela Carlson Senior Consumer Insights Consultant: Micaela Berg Estimated blood loss (cc): 5 Specimen: gallbladder Condition: stable Disposition: PACU Procedure in Detail: The patient was brought into the operating suite and placed supine on the operating table. Sign-in was performed and everyone was in agreement. Anesthesia was induced and patient was endotracheally intubated by anesthesia without incident and they also placed an OG tube. The abdomen was prepped and draped in the usual sterile fashion. A timeout was performed again everyone was in agreement. A supraumbilical incision was made through the skin into the subcutaneous tissue with an 11 blade. Towel clamps were placed on either side of the umbilicus for retraction. S retractors were used to dissect down to the anterior abdominal wall linea alba fascia. A Veress needle was placed through this incision and a water drop test confirmed placement and the abdomen was insufflated. The abdomen was entered with a 5 mm 0 degree laparoscope on a 5 mm X-ashly trocar. The area and entry was visualized was no bleeding and no apparent bowel injury. A 5 mm subxiphoid port was placed under direct visualization after first incising the skin with an 11 blade. A right upper quadrant subcostal position midclavicular line 5 mm port was placed under direct visualization after first incising skin with 11 blade. The laparoscope was placed in this and we exchanged the supraumbilical port for a 12 mm port under direct visualization. The last 5 mm port was placed in the right upper quadrant subcostal position anterior axillary line after first incising the skin with an 11 blade. The patient was placed in steep reverse Trendelenburg left side down position. The dome of the gallbladder was grasped and retracted cephalad. Omental adhesions to the body and infundibulum of the gallbladder were taken down bluntly with the [place]. The infundibulum was grasped and retracted laterally. Using the [place] we dissected out the cystic duct and cystic artery. Three 5 mm hemoclips were placed distally on the cystic duct one proximally and it was transected with curved scissors. The cystic artery was doubly clipped proximally, once distally and transected with curved scissors. The gallbladder was removed off the cystic plate with the Bovie. Any bleeding points were stopped with the Bovie. The gallbladder was placed in a laparoscopic Endo Catch bag and removed via the supraumbilical incision site. The inferior edge of the liver was bluntly retracted cephalad and the cystic plate was copiously irrigated with sterile saline. There was a little oozing from the cystic plate that was stopped with the bovie. No apparent bile leak from the cystic plate and the clips on the cystic artery and duct were intact. A large piece of surgicel was placed against the cystic plate. All irrigation was suctioned free from the abdomen. All insufflation was suctioned free from the abdomen and the ports removed. The abdominal wall at the supraumbilical incision site was closed with a 0 Vicryl [id number] stitch. 30 mL of 0.5% Marcaine was injected subcutaneously at the 4 port sites. The skin at the three 5 mm port sites were closed with 4-0 Monocryl interrupted subcuticular stitches. The skin at the supraumbilical incision site was closed with a 4-0 Monocryl running subcuticular stitch. Steri-Strips were applied to all wounds. The patient was awoken in the operating suite having tolerated the procedure well and were taken to PACU in stable condition after all lap and ensuring counts were correct at the end of the case.
[2017-02-03] MEDS: *HR* HYDROmorphone (PF) 1 MG/ML SYRINGE IVP PRN ×6 (13:05→14:00)
[2017-02-03] MEDS ORDERED: *HR* HYDROmorphone 2 MG/ML SYRINGE ONE (13:18)
--- NOTE | 2017-02-03 14:15 | Anesthesia Evaluation Post Op ---
Date of Encounter: 02/03/17 Time of Encounter: 14:14 - Vital Signs Vital Signs: Vital Signs/O2 Sat, Most Current Temp Pulse Resp BP Pulse Ox 97.3 F L 64 20 143/68 94 02/03/17 13:55 02/03/17 13:55 02/03/17 13:55 02/03/17 13:55 02/03/17 13:55 - Lungs Lungs: Clear Ascult./Percussion - Airway Airway: Non-obstructed - Cardiovascular Regular Rate - Mental Status Mental Status: Asleep with brisk response to light stimulation - Pain Pain Scale: 6 Pain Scale used: Numeric (1 - 10) - Nausea Vomiting Nausea Vomiting: Not Present - Hydration Hydration: NPO, Has not voided - Discharge PostOp Status: Transfer Patient to floor
[2017-02-03] MEDS ORDERED: D5% in Water 1,000 ML IVC PRN (14:39)
[2017-02-03] MEDS ORDERED: *HR* Morphine 2 MG/ML SYRINGE IVP PRN (14:39)
[2017-02-03] MEDS ORDERED: *HR* Dextrose 50 % in Water (Syg) 50 ML SYRINGE IVP PRN (14:39)
[2017-02-03] MEDS ORDERED: Ondansetron 4 MG/2 ML VIAL IVP PRN (14:39)
[2017-02-03] MEDS ORDERED: *HR* Metoprolol 5 MG/5 ML VIAL IVP PRN (14:39)
[2017-02-03] MEDS ORDERED: Dextrose Gel 15 GM PO PRN ×2 (14:39)
[2017-02-03] MEDS: *HR* OxyCODONE/APAP 5/325 TABLET PO PRN ×2 (15:33→23:04)
[2017-02-03] MEDS: 0.9 % Sodium Chloride 1,000 ML IVC SCH (15:33)
[2017-02-03] MEDS: Insulin LISPRO 300 UNITS/3 ML VIAL SQ SCH (17:13)
[2017-02-03] MEDS: *HR* LORazepam 0.5 MG TABLET PO SCH (20:31)
[2017-02-03] MEDS: *HR* Heparin 5,000 UNIT/ML VIAL SQ SCH (20:32)
[2017-02-04 04:24] LABS: Basophils % 0.1 %; Hematocrit 42.6 % (37.5-50.1); Hemoglobin 12.9 g/dL (12.9-16.9); Immature Granulocytes % 0.4 % (0-4); Lymphocytes # 2.1 K/mcL (0.6-4.6); Lymphocytes % 17.7 %; Mean Corpuscular HGB Conc 30.3 g/dL (31.6-35.5); Mean Corpuscular Hemoglobin 23.9 pg (28.0-33.3); Mean Platelet Volume 11.3 fL (9.4-12.4); Monocytes # 0.9 K/mcL (0.0-1.3); Monocytes % 7.4 %; Neutrophils # 8.8 K/mcL (1.6-8.9); Platelet Count 205 K/mcL (140-400); Red Blood Count 5.39 M/mcL (4.19-5.50); Red Cell Distribution Width 15.3 % (11.5-14.5); Segmented Neutrophils % 74.4 %
[2017-02-04] MEDS: *HR* Heparin 5,000 UNIT/ML VIAL SQ SCH ×3 (06:00→21:15)
[2017-02-04] MEDS: Insulin LISPRO 300 UNITS/3 ML VIAL SQ SCH ×3 (07:36→16:45)
[2017-02-04] MEDS: Isosorbide MONOnitrate (24 HR) 60 MG TAB.ER.24H PO SCH (09:56)
[2017-02-04] MEDS: Furosemide 20 MG TABLET PO SCH (09:57)
[2017-02-04] MEDS: Spironolactone 25 MG TABLET PO SCH (09:57)
[2017-02-04] MEDS: SITAGLIPTIN PHOSPHATE 50 MG PO SCH (10:02)
--- NOTE | 2017-02-04 11:56 | General Surgery Progress Note ---
<Andres,Chasity Marleen - Last Filed: 02/04/17 13:58> Date of Encounter: 02/04/17 Time of Encounter: 11:55 - Assessment and Plan (1) S/P laparoscopic cholecystectomy Current Visit: Yes Status: Acute POD #1 from a laparoscopic cholecystectomy with Dr. Carlson Advance to diabetic diet Supportive care/pain control IV fluids- 50ml/hour Increase activity as tolerated- PT/OT consulted Social service consult for home needs IS every 1 hour while awake Repeat am labs (2) Urinary retention Current Visit: Yes Status: Acute Check bladder scan now Flomax daily (3) Other problems related to housing and economic circumstances Current Visit: Yes Status: Acute Social service consult- assess home needs and set up appropriate assistance (4) Hypertension Current Visit: No Status: Chronic Continue home regimen for hypertension Metoprolol IV prn for continued hypertension Will continue to monitor and adjust as necessary Qualifiers: Hypertension type: essential hypertension Qualified Code(s): I10 - Essential (primary) hypertension (5) GERD (gastroesophageal reflux disease) Current Visit: No Status: Chronic PPI therapy daily Qualifiers: Esophagitis presence: esophagitis presence not specified Qualified Code(s) : K21.9 - Gastro-esophageal reflux disease without esophagitis (6) Hyperlipidemia Current Visit: No Status: Chronic Qualifiers: Hyperlipidemia type: mixed hyperlipidemia Qualified Code(s): E78.2 - Mixed hyperlipidemia (7) DM type 2 (diabetes mellitus, type 2) Current Visit: No Status: Chronic Continue low dose insulin coverage QACHS Will continue to monitor and adjust as necessary Qualifiers: Diabetes mellitus complication status: with kidney complications Diabetes mellitus complication detail: with chronic kidney disease Diabetes mellitus intermediate accountant insulin use: with intermediate accountant use Chronic kidney disease stage: stage 3 (moderate) Qualified Code(s): E11.22 - Type 2 diabetes mellitus with diabetic chronic kidney disease; N18.3 - Chronic kidney disease, stage 3 ( moderate); 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 of 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 (8) CKD (chronic kidney disease), stage III Current Visit: No Status: Chronic Monitor am labs (9) COPD (chronic obstructive pulmonary disease) Current Visit: No Status: Chronic Stable without acute exacerbation Qualifiers: COPD type: unspecified COPD Qualified Code(s): J44.9 - Chronic obstructive pulmonary disease, unspecified (10) DVT prophylaxis Current Visit: No Status: Acute Heparin 5,000 units SQ twice daily for DVT prophylaxis Ambulate hallways with assistance Subjective Patient reports: no new complaints, still having pain (post surgical; pre surgical pain resolved), tolerating a regular diet, flatus, no bowel movement, afebrile, other (complaint of urinary retention) Objective Vital Signs - Last 8 Hours Temp Pulse Resp BP Pulse Ox 02/04/17 10:36 97.8 F 72 16 147/74 93 02/04/17 06:52 97.7 F 68 17 167/83 90 Intake and Output 02/03/17 02/04/17 02/04/17 23:59 07:59 15:59 Intake Total 360 / 360 300 / 300 1299 / 1299 Output Total 1050 / 1050 2850 / 2850 650 / 650 Balance -690 / -690 -2550 / -2550 649 / 649 Intake: IV Fluids 819 / 819 0.9 % Sodium Chloride 1, 819 / 819 000 ML @ 50 mls/hr IVC . Q20H KANA Rx#:[id number] Oral 360 / 360 300 / 300 480 / 480 Output: Urine 1050 / 1050 2850 / 2850 650 / 650 Other: Meal Dinner Clear # Voids 1 # Bowel Movements 1 0 0 Weight 106.3 kg Blood Glucose* 230 130 127 Patient Weight 02/04/17 23:59 Weight 106.3 kg - General physical appearance well developed, well nourished, no distress - Eyes normal ocular movement - ENT normal mucosa, atraumatic, normocephalic - Neck Neck exam: trachea midline - Respiratory normal respiratory effort, clear to auscultation - Cardiovascular Cardiovascular exam: Present: RRR - Abdomen Abdomen: Present: bowel sounds present, soft, tender (expected post-operative tenderness) - Incision Incision: Present: clean and dry, intact - Integumentary no rash, no growths, no abnormal pigmentation - Neurologic CN 2-12 grossly intact - Musculoskeletal normal gait, normal posture - Psychiatric oriented to time, oriented to person, oriented to place, speech is normal, memory intact - Labs 02/04/17 03:36 - VTE Documentation of Mechanical Device: Intermittent pneumatic compression device Consult Discharge Plan - Plan Referrals: Chasity Campos SAMPLE DRILLER [Advanced Practice Nurse] - 02/17/17 10:45 am - Attending Attestation For this encounter, I have reviewed the COURT USHER or PA documentation, treatment plan, and medical decision making; and I have had face to face time with this patient. <Kaela Carlson - Last Filed: 02/04/17 15:30> Date of Encounter: 02/04/17 - Assessment and Plan (1) Other problems related to housing and economic circumstances Current Visit: Yes Status: Acute patient wiill need to restart his home meals on wheels and home care visits (2) S/P laparoscopic cholecystectomy Current Visit: Yes Status: Acute sliv once tolerate po ok diabetic diet prn pain control (3) Urinary retention Current Visit: Yes Status: Acute complaining of a lot of urinary retention and incomplete evacuation of urine, pt had "prostate surgery in past" Subjective Patient reports: no new complaints, still having pain, pain is less, tolerating liquids well, flatus, no bowel movement Objective Vital Signs - Last 8 Hours Temp Pulse Resp BP Pulse Ox 02/04/17 14:43 98.0 F 71 16 140/77 94 02/04/17 10:36 97.8 F 72 16 147/74 93 Intake and Output 02/03/17 02/04/17 02/04/17 23:59 07:59 15:59 Intake Total 360 / 360 300 / 300 3049 / 3049 Output Total 1050 / 1050 2850 / 2850 1300 / 1300 Balance -690 / -690 -2550 / -2550 1749 / 1749 Intake: IV Fluids 181 / 1819 0.9 % Sodium Chloride 1, 1819 / 1819 000 ML @ 50 mls/hr IVC . Q20H KANA Rx#:[id number] Oral 360 / 360 300 / 300 1230 / 1230 Output: Urine 1050 / 1050 2850 / 2850 1300 / 1300 Other: Meal Dinner Clear # Voids 1 # Bowel Movements 1 0 0 Weight 106.3 kg Blood Glucose* 230 130 127 Patient Weight 02/04/17 23:59 Weight 106.3 kg - General physical appearance well developed, well nourished, no distress - Eyes normal ocular movement - ENT normal mucosa, normocephalic - Neck Neck exam: trachea midline - Respiratory normal expansion, normal respiratory effort - Cardiovascular Cardiovascular exam: Present: RRR - Abdomen Abdomen: Present: bowel sounds present, soft, tender - Incision Incision: Present: clean and dry, intact - Integumentary no rash, no growths - Neurologic CN 2-12 grossly intact - Musculoskeletal normal posture - Psychiatric oriented to time, oriented to person, oriented to place, memory intact - Labs 02/04/17 03:36 - Attending Attestation I examined this patient and my medical decision-making was reviewed with the Resident Physician. I agree with the documented findings, disposition and treatment plan as described except to the extent set forth below.
[2017-02-04] MEDS: 0.9 % Sodium Chloride 1,000 ML IVC SCH (13:01)
[2017-02-04] MEDS: *HR* OxyCODONE/APAP 5/325 TABLET PO PRN ×2 (13:08→18:20)
[2017-02-04] MEDS ORDERED: Insulin LISPRO 300 UNITS/3 ML VIAL SQ SCH (21:00)
[2017-02-04] MEDS: *HR* LORazepam 0.5 MG TABLET PO SCH (21:16)
[2017-02-05 05:01] LABS: Basophils % 0.5 %; Eosinophils # 0.2 K/mcL (0.0-0.6); Eosinophils % 2.5 %; Hemoglobin 12.7 g/dL (12.9-16.9); Immature Granulocytes % 0.6 % (0-4); Lymphocytes # 2.5 K/mcL (0.6-4.6); Lymphocytes % 28.1 %; Mean Corpuscular Hemoglobin 24.9 pg (28.0-33.3); Mean Corpuscular Volume 80.4 fL (83.0-100.0); Mean Platelet Volume 11.6 fL (9.4-12.4); Monocytes # 0.9 K/mcL (0.0-1.3); Monocytes % 10.2 %; Neutrophils # 5.2 K/mcL (1.6-8.9); Platelet Count 198 K/mcL (140-400); Red Cell Distribution Width 15.5 % (11.5-14.5); Segmented Neutrophils % 58.1 %
[2017-02-05 05:17] LABS: Calcium 8.9 mg/dL (8.6-10.8); Potassium 4.2 mEq/L (3.5-4.5)
[2017-02-05] MEDS: *HR* Heparin 5,000 UNIT/ML VIAL SQ SCH (06:06)
[2017-02-05] MEDS: Furosemide 20 MG TABLET PO SCH (08:49)
[2017-02-05] MEDS: Spironolactone 25 MG TABLET PO SCH (08:49)
[2017-02-05] MEDS: Isosorbide MONOnitrate (24 HR) 60 MG TAB.ER.24H PO SCH (08:50)
[2017-02-05] MEDS: Insulin LISPRO 300 UNITS/3 ML VIAL SQ SCH ×2 (08:50→12:23)
[2017-02-05] MEDS: SITAGLIPTIN PHOSPHATE 50 MG PO SCH (08:51)
--- NOTE | 2017-02-05 11:27 | Discharge Summary ---
Date of Encounter: 02/05/17 Time of Encounter: 11:26 - Discharge Diagnosis (1) S/P laparoscopic cholecystectomy Priority: Primary Status: Acute (2) Urinary retention Priority: Secondary Status: Resolved - Discharge Medications Prescriptions: Docusate Sodium [Colace] 100 mg PO BID #30 capsule Oxycodone HCl/Acetaminophen [Endocet 5-325 Tablet] 1 each PO Q6H PRN #30 tablet PRN Reason: Pain Polyethylene Glycol 3350 [MiraLAX Powder Bulk 17.9 Oz] 1 scoop PO DAILY PRN # 510 gm PRN Reason: Constipation Home Medications: Carvedilol [Coreg] 6.25 tab PO DAILY 01/07/15 [History] Furosemide [Lasix] 20 mg PO DAILY 01/07/15 [History] Losartan [Cozaar] 25 mg PO QPM 01/07/15 [History] Sertraline [Zoloft] 50 mg PO QPM 01/07/15 [History] Sitagliptin Phosphate [Januvia] 50 mg PO QAM 01/07/15 [History] Tamsulosin HCl [Flomax] 0.4 mg PO DAILY 01/07/15 [History] Buspirone HCl [Buspar] 7.5 mg PO DAILY 11/22/16 [History] Spironolactone [Aldactone] 25 mg PO DAILY 11/22/16 [History] Tramadol HCl [Ultram] 50 mg PO Q4H PRN 11/29/16 [History] Atorvastatin Calcium [Lipitor] 80 mg PO DAILY 11/30/16 [History] Esomeprazole Magnesium [Nexium] 40 mg PO DAILY 11/30/16 [History] Gemfibrozil [Lopid] 600 mg PO DAILY 11/30/16 [History] Isosorbide MONOnitrate (24 HR) [Imdur] 60 mg PO DAILY #30 tab.er.24h 11/30/16 [ Rx] LORazepam [Ativan] 0.5 mg PO HS #15 tablet 11/30/16 [Rx] Oxycodone HCl/Acetaminophen [Percocet 5-325 mg Tablet] 1 tab PO Q6H PRN #20 tablet 11/30/16 [Rx] Rivaroxaban [Xarelto] 15 mg PO QPM #30 tablet 11/30/16 [Rx] Acetaminophen [Tylenol 650mg SUPP] 650 mg RC Q4H PRN 02/03/17 [History] Acetaminophen [Tylenol] 650 mg PO Q4H PRN 02/03/17 [History] Bisacodyl [Dulcolax] 10 mg RC DAILY PRN 02/03/17 [History] Haloperidol Oral Conc [Haldol] 0.5 mg PO Q2H PRN 02/03/17 [History] Hyoscyamine SL [Levsin Sl] 0.125 mg SL Q2H PRN 02/03/17 [History] LORazepam [Ativan] 0.5 mg PO Q4H PRN 02/03/17 [History] Morphine Oral CONC [Roxanol] 0.5 ml PO Q4H PRN 02/03/17 [History] Nitroglycerin [Nitrostat] 0.4 mg SL Q5M PRN 02/03/17 [History] Oxygen 2 l NS AD 02/03/17 [History] Promethazine [Phenergan] 25 mg RC Q6H PRN 02/03/17 [History] Ranolazine [Ranexa] 500 mg PO DAILY 02/03/17 [History] Docusate Sodium [Colace] 100 mg PO BID #30 capsule 02/05/17 [Rx] Oxycodone HCl/Acetaminophen [Endocet 5-325 Tablet] 1 each PO Q6H PRN #30 tablet 02/05/17 [Rx] Polyethylene Glycol 3350 [MiraLAX Powder Bulk 17.9 Oz] 1 scoop PO DAILY PRN # 510 gm 02/05/17 [Rx] Allergies/Adverse Reactions: 3 Allergy/AdvReac Type Severity Reaction Status Date / Time No Known Allergies Allergy Verified 02/03/17 10:43 General Surgery Exam Initial Vital Signs Temp Pulse Resp BP Pulse Ox 97.8 F 73 18 157/85 98 02/03/17 10:06 02/03/17 10:06 02/03/17 10:06 02/03/17 10:06 02/03/17 10:06 - General physical appearance well developed, well nourished, no distress - Eyes other (Legally blind) - ENT Other (REDDING) - Neck no masses, no bruits, trachea midline, no lymphadectomy, no venous distension - Respiratory normal expansion, normal respiratory effort, clear to percussion, clear to auscultation - Cardiovascular Cardiovascular exam: Present: RRR, murmurs - Abdomen Abdomen general surgery: Present: bowel sounds present, soft, non tender - Incision Incision: Present: clean and dry, intact - Integumentary Integumentary general surgery: Present: warm and dry - Neurologic Present: CN 2-12 grossly intact, normal coordination, normal sensation - Musculoskeletal Present: normal gait, normal posture - Psychiatric Psychiatric general surgery: Present: appropriate, oriented to person, oriented to place, oriented to time, speech is normal, memory intact Date of admission: 02/03/2017 Primary care physician: PCP NONE Consults: 02/03/17 14:39 Consult to Aluminum Can Collector [CONS] Routine Reason for SW Consult: pt lives alone and is blind and REDDING, will need to resume meals on wheels and home care when discharged 02/04/17 13:32 Consult to Physical Therapy [CONS] Routine Comment: Evaluate, develop and implement POC Reason for Consult: discharge planning OT [Consult to Occupational Therapy] [CONS] Routine Comment: Evaluate, develop and implement POC Reason for Consult: discharge planning Discharging clinician: Kaela Unger) - Patient Status Disposition: Home Health Service Condition: Good Overall status at discharge: patient is progressing back to baseline - Discharge Instructions Follow Up With: Chasity Campos CNP [Advanced Practice Nurse] - 02/17/17 10:45 am Brandon Cotto MD [Partnered Physician] - (f/u in two weeks for urinary retention) Additional Instructions: Do not take tramadol while taking oxycodone. Do not take yours Xarelto tonight, as you were given this in the hospital today. Resume your normal dose of Xarelto tomorrow 02/06/2017. -No lifting, pulling, pushing, greater than 15 pounds for 2 weeks. -Okay to climb stairs. -May resume driving when you have been off narcotics for 24 hours and you are safe to react in the car. -You may shower beginning tomorrow. Wash the incisions daily with soap and water and pat dry. -No swimming, tough bath, or soaking for 2 weeks. -Return to the office for follow-up as directed. -Report any increase in discomfort or any new fevers greater than 101.5 degrees and signs of infection such as redness, swelling, or drainage from the incisions. -Take stool softener as well on narcotics. May hold for loose stool. -Take Miralax daily until you havea bowel movement, then take as needed for constipation. - Diet and Activity Activity: increase activity as tolerated, other (Ambulate as previously) Diet: advance to your usual diet - Hospital Course Hospital course: Mr. Curtis is a 71 year old male Who presented on 02/03/2017 for an elective laproscopic cholecystectomy by Dr. Carlson. His hospital course was complicated by pain control, urinary retention, and need for safety assessment for d/c planning. He is ambulating and tolerating liquids without difficulty. He reports difficulty urinating, but that has returned to his baseline, and he requests a referral for urology at d/c. - Time Spent with Patient Total time spent providing and/or coordinating discharge services: Labs on day of discharge: Labs from last 24 hours 02/05/17 02/05/17 02/05/17 07:14 04:09 04:09 WBC 8.9 RBC 5.10 Hgb 12.7 L Hct 41.0 MCV 80.4 L MCH 24.9 L MCHC 31.0 L RDW 15.5 H Plt Count 198 MPV 11.6 Immature Gran % 0.6 Seg Neutrophils % 58.1 Lymphocytes % 28.1 Monocytes % 10.2 Eosinophils % 2.5 Basophils % 0.5 Neutrophils # 5.2 Lymphocytes # 2.5 Monocytes # 0.9 Eosinophils # 0.2 Basophils # 0.0 Sodium 143 Potassium 4.2 Chloride 107 Carbon Dioxide 30 H BUN 23 Creatinine 1.83 H Est GFR ( Amer) 44 L Est GFR (Non-Af Amer) 36 L BUN/Creatinine Ratio 13 Glucose 158 H POC Glucose 115 H Calculated Osmolality 303 H Calcium 8.9 02/04/17 02/04/17 02/04/17 20:52 16:05 11:15 WBC RBC Hgb Hct MCV MCH MCHC RDW Plt Count MPV Immature Gran % Seg Neutrophils % Lymphocytes % Monocytes % Eosinophils % Basophils % Neutrophils # Lymphocytes # Monocytes # Eosinophils # Basophils # Sodium Potassium Chloride Carbon Dioxide BUN Creatinine Est GFR ( Amer) Est GFR (Non-Af Amer) BUN/Creatinine Ratio Glucose POC Glucose 166 H 132 H 127 H Calculated Osmolality Calcium
[2017-02-05 11:51] VITALS: BP 123/70
[2017-02-05] MEDS ORDERED: *HR* Rivaroxaban 15 MG TABLET PO SCH ×2 (12:00→18:00)
== END 2017-02-05 15:51 | disposition home health service (06) ==
LOC: SAMDAY 09:17 → 3ANU 09:17
PROVIDERS: ADMIT Surgery; ATTEND Surgery

== ENCOUNTER 2017-04-22 02:02 | Inpatient (IN) ==
[2017-04-22 06:00] LABS: Basophils # 0.1 K/mcL (0.0-0.2); Basophils % 0.4 %; Eosinophils # 0.2 K/mcL (0.0-0.6); Eosinophils % 1.6 %; Hematocrit 40.9 % (37.5-50.1); Hemoglobin 12.9 g/dL (12.9-16.9); Immature Granulocytes % 0.5 % (0-4); Lymphocytes # 2.5 K/mcL (0.6-4.6); Lymphocytes % 18.2 %; Mean Corpuscular HGB Conc 31.5 g/dL (31.6-35.5); Mean Corpuscular Hemoglobin 25.4 pg (28.0-33.3); Mean Corpuscular Volume 80.7 fL (83.0-100.0); Mean Platelet Volume 10.7 fL (9.4-12.4); Monocytes # 1.1 K/mcL (0.0-1.3); Monocytes % 7.8 %; Neutrophils # 9.8 K/mcL (1.6-8.9); Platelet Count 202 K/mcL (140-400); Red Blood Count 5.07 M/mcL (4.19-5.50); Red Cell Distribution Width 15.4 % (11.5-14.5); Segmented Neutrophils % 71.5 %
[2017-04-22 06:04] LABS: INR 1.4
[2017-04-22 06:09] LABS: Potassium 4.1 mEq/L (3.5-4.5)
--- NOTE | 2017-04-22 06:12 | Urology History & Physical ---
Date of Encounter: 04/22/17 Time of Encounter: 06:10 Assessment and Plan (1) Clot retention of urine Current Visit: Yes Status: Acute Patient is experiencing significant hematuria, difficulty urinating and I'm unable to place a hematuria catheter at bedside. We'll proceed to the operating room this morning for cystoscopy, clot evacuation and fulguration. He may have a bladder neck contracture and I suspect that the previous catheters may not have been in his bladder. (2) Gross hematuria Current Visit: No Status: Acute History of Present Illness Chief complaint: unable to pee HPI: Mr. Curtis is a 71 [address] male patient Dr. Meza. Known BPH. He had a TURP 10 years ago. Significant hesitancy since Friday. Catheter placed by nurse yesterday evening revealed gross hematuria. Presented to [place] emergency room. Three-way catheter placed but CBI did not clear urine. Catheter clotted off here on 3a. Patient is legally blind and unsure if he has had previous hematuria. He is having significant abdominal pain because of inability to urinate Past Med Surg Social Fam HX - Past Medical History Medical history: asthma, cardiomyopathy, CHF, COPD, coronary artery disease, diabetes, hypertension, myocardial infarction, pulmonary embolus, renal disease , valvular heart disease, other Psychiatric history: depression, panic disorder - Past Surgical History Surgical History: angioplasty/stent, cataract, herniorrhaphy, prostatectomy - Social History Smoking Status: Never smoker Smokeless Tobacco Status: No Alcohol use: none Drug use: none - Family History Mother Hx Family Cardiac Disorders: Yes Father Hx Family Cardiac Disorders: Yes Medications and Allergies Tamsulosin HCl [Flomax] 0.4 mg PO DAILY 01/07/15 [History] Buspirone HCl [Buspar] 7.5 mg PO DAILY 11/22/16 [History] Spironolactone [Aldactone] 25 mg PO DAILY 11/22/16 [History] Atorvastatin Calcium [Lipitor] 80 mg PO DAILY 11/30/16 [History] Gemfibrozil [Lopid] 600 mg PO DAILY 11/30/16 [History] Rivaroxaban [Xarelto] 15 mg PO QPM #30 tablet 03/06/17 [Rx] Carvedilol [Coreg] 6.25 mg PO DAILY 04/21/17 [History] Isosorbide MONOnitrate (24 HR) [Imdur] 60 mg PO DAILY 04/21/17 [History] Oxycodone HCl/Acetaminophen [Percocet 5-325 mg Tablet] 1 each PO Q8H 04/21/17 [ History] 3 Allergy/AdvReac Type Severity Reaction Status Date / Time No Known Allergies Allergy Verified 02/03/17 10:43 Review of Systems - Constitutional no chills, no fever(s) - EENT Nose, mouth and throat: no dizziness - Cardiovascular no chest pain - Respiratory no cough - Gastrointestinal abdominal pain - Genitourinary change in urinary stream, hematuria - Musculoskeletal back pain - Integumentary no erythema - Neurological no confusion - Psychiatric no anxiety - Hematologic/Lymphatic easy bleeding - Allergic/Immunologic no throat swelling Exam Initial Vital Signs Temp Pulse Resp BP Pulse Ox 97.6 F 69 17 146/85 97 04/22/17 03:52 04/22/17 03:52 04/22/17 03:52 04/22/17 03:52 04/22/17 03:52 - General physical appearance Present: well developed, moderate pain - Eyes Present: other (blind) - ENT Present: normal nares - Neck Present: no masses - Respiratory Present: normal respiratory effort - Cardiovascular Cardiovascular exam IM: RRR - Abdomen Abdomen: Present: soft, distended (Suprapubic), suprapubic tenderness - Genitourinary normal penis with no external lesions - Integumentary Present: no rash - Neurologic Absent: normal coordination, disoriented, confused - Additional Findings Ny catheter present with dark gross hematuria. I attempted to place a hematuria catheter 24 Colombian but it would not pass. It caused the patient significant discomfort and the procedure was stopped Urology Results - Labs 04/22/17 05:48 04/22/17 05:48 Abnormal lab results WBC 13.7 K/mcL (4.3-11.1) H 04/22/17 05:48 MCV 80.7 fL (83.0-100.0) L 04/22/17 05:48 MCH 25.4 pg (28.0-33.3) L 04/22/17 05:48 MCHC 31.5 g/dL (31.6-35.5) L 04/22/17 05:48 RDW 15.4 % (11.5-14.5) H 04/22/17 05:48 Neutrophils # 9.8 K/mcL (1.6-8.9) H 04/22/17 05:48 PT 15.0 Seconds (9.4-12.1) H 04/22/17 05:48 Creatinine 2.26 mg/dL (0.72-1.25) H 04/22/17 05:48 Est GFR ( Amer) 35 (> 60) L 04/22/17 05:48 Est GFR (Non-Af Amer) 29 (> 60) L 04/22/17 05:48 Glucose 185 mg/dL (70-99) H 04/22/17 05:48 Diabetes panel 04/22/17 Range/Units 05:48 Sodium 139 (136-145) mEq/L Potassium 4.1 (3.5-4.5) mEq/L Chloride 106 (98-109) mEq/L Carbon Dioxide 26 (19-29) mEq/L BUN 25 (8-26) mg/dL Creatinine 2.26 H (0.72-1.25) mg/dL Glucose 185 H (70-99) mg/dL Calcium 9.0 (8.6-10.8) mg/dL Calcium panel 04/22/17 Range/Units 05:48 Calcium 9.0 (8.6-10.8) mg/dL Pituitary panel 04/22/17 Range/Units 05:48 Sodium 139 (136-145) mEq/L Potassium 4.1 (3.5-4.5) mEq/L Chloride 106 (98-109) mEq/L Carbon Dioxide 26 (19-29) mEq/L BUN 25 (8-26) mg/dL Creatinine 2.26 H (0.72-1.25) mg/dL Glucose 185 H (70-99) mg/dL Calcium 9.0 (8.6-10.8) mg/dL Adrenal panel 04/22/17 Range/Units 05:48 Sodium 139 (136-145) mEq/L Potassium 4.1 (3.5-4.5) mEq/L Chloride 106 (98-109) mEq/L Carbon Dioxide 26 (19-29) mEq/L BUN 25 (8-26) mg/dL Creatinine 2.26 H (0.72-1.25) mg/dL Glucose 185 H (70-99) mg/dL Calcium 9.0 (8.6-10.8) mg/dL All other labs normal.
[2017-04-22] MEDS ORDERED: *HR* Propofol 200 MG/20 ML VIAL IVP ONE (06:56)
[2017-04-22] MEDS ORDERED: Lidocaine -MPF 2% 2 ML VIAL ONE (06:56)
[2017-04-22] MEDS ORDERED: Ondansetron 4 MG/2 ML VIAL ONE (06:56)
[2017-04-22] MEDS ORDERED: *HR* FentaNYL (PF) 100 MCG/2 ML VIAL ONE (06:56)
[2017-04-22] MEDS ORDERED: Dexamethasone 4 MG/ML VIAL ONE (06:56)
--- NOTE | 2017-04-22 07:26 | Anesthesia Evaluation PreOp ---
Date of Encounter: 04/22/17 Time of Encounter: 07:20 - Past History Planned Operation: Cystoscopy, Clot Evacuation Cardiac History: PR, CHF, Angina, HTN, Hyperlipidemia, Cardiac Stent, Pacemaker/ ICD Pulmonary History: COPD, Other (Hx PE off Xarelto yesterday) JEWELRY STORE MANAGER History: Denies Any Significant HX Other Medical History: Renal (CKD), Diabetes Type II Anesthesia History: No Prior Anesthetic Complications Alcohol Use: none Drug use: none Medications and Allergies Tamsulosin HCl [Flomax] 0.4 mg PO DAILY 01/07/15 [History] Buspirone HCl [Buspar] 7.5 mg PO DAILY 11/22/16 [History] Spironolactone [Aldactone] 25 mg PO DAILY 11/22/16 [History] Atorvastatin Calcium [Lipitor] 80 mg PO DAILY 11/30/16 [History] Gemfibrozil [Lopid] 600 mg PO DAILY 11/30/16 [History] Rivaroxaban [Xarelto] 15 mg PO QPM #30 tablet 03/06/17 [Rx] Carvedilol [Coreg] 6.25 mg PO DAILY 04/21/17 [History] Isosorbide MONOnitrate (24 HR) [Imdur] 60 mg PO DAILY 04/21/17 [History] Oxycodone HCl/Acetaminophen [Percocet 5-325 mg Tablet] 1 each PO Q8H 04/21/17 [ History] 3 Allergy/AdvReac Type Severity Reaction Status Date / Time No Known Allergies Allergy Verified 02/03/17 10:43 - Meds/Allergy Pre-op Review Medications Reviewed: Yes Allergies Reviewed: Yes Beta Blockers on Current Med List: Yes Anesthesia Results - Labs 04/22/17 05:48 04/22/17 05:48 - Imaging EKG: report reviewed (SR First Degree AV Block) Additional studies: LVEF 40% Anesthesia Exam O2 Sat Height 1.73 m Weight 111.13 kg O2 Sat by Pulse Oximetry 97 Vital Signs Temp Pulse Resp BP Pulse Ox 97.6 F 69 17 146/85 97 04/22/17 03:52 04/22/17 03:52 04/22/17 03:52 04/22/17 03:52 04/22/17 03:52 Height: 5'8 Weight: 245 lbs NPO (# of Hours): MN Pain Scale: 0 - HEENT Pupil (Motor): Pupils equal, EOMI Mallampati: III Teeth: Edentulous Oral Opening: Less than or equal to 3 - JEWELRY STORE MANAGER LOC: Oriented JEWELRY STORE MANAGER Motor: Normal RUE, Normal LUE, Normal RLE, Normal LLE, Normal Face JEWELRY STORE MANAGER Sensory: Normal: RUE, LUE, RLE, LLE, Face - Cardiac Rhythm: Regular Murmur: None JVD: No Carotid Bruit: No - Pulmonary Breath Sounds: bilateral Clear Respiratory Effort: Symmetrical Anesthesia Assess/Plan ASA Score: 4 (Cardiomyopathy CAD PR HTN COPD DM CKD) Modified Ade Scale for Level of Consciousness: Cooperative, oriented, and tranquil Anesthetic Plan: General Recovery Plan: PACU (Discussed GA, agrees to proceed)
[2017-04-22] MEDS ORDERED: CeFAZolin Premix DUPLEX 2,000 MG/50 ML BAG IVPB ONE (07:50)
[2017-04-22] MEDS ORDERED: *HR* HYDROmorphone (PF) 1 MG/ML SYRINGE IVP PRN (07:55)
[2017-04-22] MEDS ORDERED: *HR* Promethazine 25 MG/ML VIAL IVP PRN (07:55)
[2017-04-22] MEDS ORDERED: *HR* Phenylephrine 10 MG/ML VIAL ONE (07:59)
--- NOTE | 2017-04-22 08:17 | Operative Note ---
Date of procedure: 04/22/17 Pre-op diagnosis: clot retention Post-op diagnosis: other (large false passage) Procedure: cystoscopy difficult cath insertion. Anesthesia: GETA Surgeon: Elmer Enriquez Estimated blood loss (cc): 0 Specimen: none Condition: stable Disposition: PACU Procedure in Detail: I inserted the 25 estonian resectascope with visual obturator. I encountered a large clot in the bulbar urethra and then noticed fibrous tissue indicating a large false passage. I was able to redirect the scope upwards to reestablish the urethra and guide the scope in the bladder. The patient did not have significant BPH for a bladder neck contracture. The bladder appeared free of any clots, lesions, tumors, stones. I placed a zip wire through the resectoscope and then passed a 24 Mosotho three-way catheter over the zip wire into the bladder. There was return of clear urine. I suspect that one of his previous 2 catheters over the last 24 hours created a large false passage and all irrigation and CBI was being pushed into his retroperitoneum. The significant hematuria was likely due to bleeding from the false passage rather than his urinary tract. Placement of the catheter in his bladder returned clear urine.
--- NOTE | 2017-04-22 08:46 | Anesthesia Evaluation Post Op ---
Date of Encounter: 04/22/17 Time of Encounter: 08:45 - Vital Signs Vital Signs: Vital Signs/O2 Sat, Most Current Temp Pulse Resp BP Pulse Ox 97.8 F 71 15 161/80 98 04/22/17 08:21 04/22/17 08:31 04/22/17 08:31 04/22/17 08:31 04/22/17 08:31 - Lungs Lungs: Clear Ascult./Percussion - Airway Airway: Non-obstructed - Cardiovascular Regular Rate - Mental Status Mental Status: Asleep with brisk response to light stimulation - Pain Pain Scale: 2 Pain Scale used: Numeric (1 - 10) - Nausea Vomiting Nausea Vomiting: Not Present - Hydration Hydration: Ice chips, Ny catheter - Discharge PostOp Status: Transfer Patient to floor
[2017-04-22] MEDS ORDERED: Spironolactone 25 MG TABLET PO SCH (09:09)
[2017-04-22] MEDS ORDERED: Dextrose Gel 15 GM PO PRN ×2 (09:09)
[2017-04-22] MEDS ORDERED: *HR* Belladonna Alkaloids/Opium 30 MG RECTAL SUPPOSITORY RC PRN (09:09)
[2017-04-22] MEDS ORDERED: Naloxone 0.4 MG/ML INJ IVP PRN (09:09)
[2017-04-22] MEDS ORDERED: *HR* Morphine 2 MG/ML SYRINGE IVP PRN (09:09)
[2017-04-22] MEDS ORDERED: D5% in Water 1,000 ML IVC PRN (09:09)
[2017-04-22] MEDS ORDERED: Ondansetron 4 MG/2 ML VIAL IVP PRN (09:09)
[2017-04-22] MEDS ORDERED: *HR* Dextrose 50 % in Water (Syg) 50 ML SYRINGE IVP PRN (09:09)
[2017-04-22] MEDS: cefTRIAXone 1,000 MG in Water for inj. (sterile) 10 ML IVP SCH (10:17)
[2017-04-22] MEDS: Isosorbide MONOnitrate (24 HR) 60 MG TAB.ER.24H PO SCH (10:32)
[2017-04-22] MEDS: 0.9 % Sodium Chloride 1,000 ML IVC SCH ×2 (10:33→18:42)
[2017-04-22] MEDS: Insulin LISPRO 300 UNITS/3 ML VIAL SQ SCH ×2 (12:20→18:40)
--- NOTE | 2017-04-22 17:23 | Internal Medicine Consult Note ---
Date of Encounter: 04/22/17 Time of Encounter: 17:17 - Assessment and Plan (1) Hypertension Current Visit: No Status: Chronic Assessment and plan: blood pressure is well controlled. We will continue with Coreg. I will hold losartan and spironolactone due to hyperkalemia. Qualifiers: Hypertension type: essential hypertension Qualified Code(s): I10 - Essential (primary) hypertension (2) DM type 2 (diabetes mellitus, type 2) Current Visit: No Status: Chronic Assessment and plan: Hold oral antidiabetic medication. Start insulin sliding scale. Blood glucose fingersticks before meals at bedtime. Check hemoglobin A1c. 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 We will hold this due to his acute bleed. Monitor hemoglobin and hematocrit every 12 hours and if stable anticipate restarting Xarelto tomorrow. (4) CAD (coronary artery disease) Current Visit: No Status: Chronic Assessment and plan: Continue with isosorbide and Ranexa. Continue with Coreg. He is not on aspirin at home and will not start this due to active bleeding. Qualifiers: Coronary Disease-Associated Artery/Lesion type: [place] artery [place] vs. transplanted heart: [place] heart Associated angina: without angina Qualified Code(s): I25.10 - Atherosclerotic heart disease of [place] coronary artery without angina pectoris (5) CKD (chronic kidney disease), stage III Current Visit: No Status: Chronic Assessment and plan: Per record review, baseline creatinine in February 2017 is 1.6-2.0. Currently creatinine is elevated. We will hold ARB. Avoid nephrotoxins. Monitor kidney function. Provide gentle IV fluid hydration. (6) Gross hematuria Current Visit: No Status: Acute Assessment and plan: Management per urology. Continue CBI. (7) DVT prophylaxis Current Visit: Yes Status: Acute Assessment and plan: He has been off the Xarelto for close to 24 hours. We will start subcutaneous heparin for DVT prophylaxis. Internal Medicine - CN: HPI - Data of Consult Patient: new to practice Consult date: 04/22/17 Requesting Physician: Elmer Enriquez MD - Consult Narrative Reason for consult: Inpatient management of diabetes, hypertension and CAD. History of present illness: Mr. Curtis is a 71 year old male with past medical history significant for hypertension, moderate type 2 diabetes not on insulin, coronary artery disease status post multiple PCI and stent placement, BPH who was sent from an outside hospital for evaluation of gross hematuria. He presented last night to [facility] for evaluation of gross hematuria. Prior to this presentation to [facility] he has been experiencing dysuria, suprapubic pain and frequently urinating for 3 days. He called his hospice nurse and she came to the house and placed a Ny catheter. He continued to have pain. Hospice nurse returned and noticed that the patient had gross hematuria and referred him to [facility] emergency department. He was evaluated there and had a continuous bladder irrigation catheter placed and was transferred to our institution. He was taken to the operating room by Dr. Enriquez and had a Ny catheter placed under video guidance. He tolerated the procedure well. We are consulted for medical management. Review of systems: Patient is completely blind, reports no nausea vomiting diarrhea, occasional constipation and rectal pain secondary to hemorrhoids, dysuria as above. Past medical history: As above Past surgical history: Hernia repair, cataract removal Family history: Patient's father of acute UT at age 69. Social history: Patient lives independently, tobacco alcohol and drug use. He is currently under hospice care. Past Med Surg Social Fam HX - Past Medical History Medical history: asthma, cardiomyopathy, CHF, COPD, coronary artery disease, diabetes, hypertension, myocardial infarction, pulmonary embolus, renal disease , valvular heart disease, other Psychiatric history: depression, panic disorder - Past Surgical History Surgical History: angioplasty/stent, cataract, herniorrhaphy, prostatectomy - Social History Smoking Status: Never smoker Smokeless Tobacco Status: No Alcohol use: none Drug use: none - Family History Mother Hx Family Cardiac Disorders: Yes Father Hx Family Cardiac Disorders: Yes Internal Medicine - CN: Meds Tamsulosin HCl [Flomax] 0.4 mg PO DAILY 01/07/15 [History] Buspirone HCl [Buspar] 7.5 mg PO DAILY 11/22/16 [History] Spironolactone [Aldactone] 25 mg PO DAILY 11/22/16 [History] Atorvastatin Calcium [Lipitor] 80 mg PO DAILY 11/30/16 [History] Gemfibrozil [Lopid] 600 mg PO DAILY 11/30/16 [History] Rivaroxaban [Xarelto] 15 mg PO QPM #30 tablet 03/06/17 [Rx] Carvedilol [Coreg] 6.25 mg PO DAILY 04/21/17 [History] Isosorbide MONOnitrate (24 HR) [Imdur] 60 mg PO DAILY 04/21/17 [History] Oxycodone HCl/Acetaminophen [Percocet 5-325 mg Tablet] 1 each PO Q8H 04/21/17 [ History] Furosemide [Lasix] 20 mg PO DAILY 04/22/17 [History] LORazepam [Ativan] 0.5 mg PO DAILY 04/22/17 [History] Losartan [Cozaar] 25 mg PO DAILY 04/22/17 [History] Omeprazole [PriLOSEC] 40 mg PO DAILY 04/22/17 [History] Oxybutynin [Ditropan] 5 mg PO DAILY 04/22/17 [History] Ranolazine [Ranexa] 500 mg PO DAILY 04/22/17 [History] Sertraline [Zoloft] 50 mg PO DAILY 04/22/17 [History] Sitagliptin Phosphate [Januvia] 50 mg PO DAILY 04/22/17 [History] 3 Allergy/AdvReac Type Severity Reaction Status Date / Time No Known Allergies Allergy Verified 02/03/17 10:43 Internal Medicine - CN: Exam - Constitutional Vitals: Temp Pulse Resp BP Pulse Ox 98.0 F 74 18 107/59 93 04/22/17 14:57 04/22/17 14:57 04/22/17 14:57 04/22/17 14:57 04/22/17 14:57 General appearance IM: Present: A&O X 3, no acute distress - Respiratory Respiratory exam: Present: CTAB. Absent: wheezes - Cardiovascular Cardiovascular exam IM: Present: RRR, +S1, +S2, systolic murmur - GI/Abdominal GI/Abdominal exam IM: Present: normal bowel sounds. Absent: tenderness - exam: Absent: circumcision External exam: Present: normal external exam. Absent: lesions, swelling - Expanded Exam Male exam: Absent: erythema, induration, lesions External exam: Present: bleeding (Ny catheter is present, small amount of bleeding around the catheter and small amount of dried blood.) - Skin Skin exam IM: Present: warm. Absent: abrasion, erythema, rash Internal Medicine - CN: Reslt - Labs CBC & Chem 7: 04/22/17 05:48 04/22/17 05:48 Labs: Short CBC 04/22/17 Range/Units 05:48 WBC 13.7 H (4.3-11.1) K/mcL Hgb 12.9 (12.9-16.9) g/dL Hct 40.9 (37.5-50.1) % Plt Count 202 (140-400) K/mcL Neutrophils # 9.8 H (1.6-8.9) K/mcL BMP 04/22/17 05:48 Sodium 139 Potassium 4.1 Chloride 106 Carbon Dioxide 26 BUN 25 Creatinine 2.26 H Glucose 185 H Calcium 9.0 - ABG Interpretation ABG results: PT/INR, D-dimer PT 15.0 Seconds (9.4-12.1) H 04/22/17 05:48 Consult Discharge Plan - Plan Referrals: NONE,PCP [Primary Care Provider] -
[2017-04-22 18:21] LABS: Basophils % 0.1 %; Hematocrit 37.4 % (37.5-50.1); Hemoglobin 11.9 g/dL (12.9-16.9); Immature Granulocytes % 0.5 % (0-4); Immature Platelets 6.9 % (1.1-6.1); Lymphocytes # 1.8 K/mcL (0.6-4.6); Lymphocytes % 11.4 %; Mean Corpuscular HGB Conc 31.8 g/dL (31.6-35.5); Mean Corpuscular Hemoglobin 25.3 pg (28.0-33.3); Mean Corpuscular Volume 79.4 fL (83.0-100.0); Mean Platelet Volume 10.6 fL (9.4-12.4); Monocytes # 0.8 K/mcL (0.0-1.3); Monocytes % 5.4 %; Neutrophils # 12.7 K/mcL (1.6-8.9); Platelet Count 215 K/mcL (140-400); Red Blood Count 4.71 M/mcL (4.19-5.50); Red Cell Distribution Width 15.1 % (11.5-14.5); Segmented Neutrophils % 82.6 %
[2017-04-22 18:47] LABS: Hemoglobin A1C 7.3 %
[2017-04-22] MEDS: *HR* OxyCODONE/APAP 5/325 TABLET PO PRN (21:00)
[2017-04-23] MEDS: *HR* Heparin 5,000 UNIT/ML VIAL SQ SCH ×2 (06:08→16:46)
[2017-04-23 06:54] LABS: Basophils % 0.1 %; Eosinophils % 0.2 %; Hematocrit 35.9 % (37.5-50.1); Hemoglobin 11.4 g/dL (12.9-16.9); Immature Granulocytes % 0.6 % (0-4); Lymphocytes % 20.3 %; Mean Corpuscular HGB Conc 31.8 g/dL (31.6-35.5); Mean Corpuscular Hemoglobin 25.2 pg (28.0-33.3); Mean Corpuscular Volume 79.2 fL (83.0-100.0); Mean Platelet Volume 10.8 fL (9.4-12.4); Monocytes # 1.2 K/mcL (0.0-1.3); Monocytes % 8.2 %; Neutrophils # 10.5 K/mcL (1.6-8.9); Platelet Count 182 K/mcL (140-400); Red Blood Count 4.53 M/mcL (4.19-5.50); Red Cell Distribution Width 15.4 % (11.5-14.5); Segmented Neutrophils % 70.6 %
[2017-04-23 07:04] LABS: Calcium 8.7 mg/dL (8.6-10.8); Potassium 4.5 mEq/L (3.5-4.5)
--- NOTE | 2017-04-23 07:12 | Urology Progress Note ---
Date of Encounter: 04/23/17 Time of Encounter: 07:09 - Assessment and Plan (1) Clot retention of urine Current Visit: Yes Status: Resolved (2) Gross hematuria Current Visit: No Status: Resolved (3) Urethral false passage Current Visit: Yes Status: Acute Assessment and plan: Discovered large false passage in the urethra. Catheter needs to stay in place at least 10 days to allow for proper healing. Okay with discharge from urology standpoint. Follow-up in 10-14 days. Provide leg bag for discharge. Progress Note Subjective: no new complaints, feels better, still having pain Narrative: states cath is bothersome but pain is less Objective Initial Vital Signs Temp Pulse Resp BP Pulse Ox 97.6 F 69 17 146/85 97 04/22/17 03:52 04/22/17 03:52 04/22/17 03:52 04/22/17 03:52 04/22/17 03:52 - General physical appearance Present: no distress - Additional Exam urine clear. - Labs 04/23/17 06:45 04/23/17 06:45 Diabetes panel 04/22/17 04/23/17 Range/Units 18:13 06:45 Sodium 139 (136-145) mEq/L Potassium 4.5 (3.5-4.5) mEq/L Chloride 109 (98-109) mEq/L Carbon Dioxide 24 (19-29) mEq/L BUN 18 (8-26) mg/dL Creatinine 1.71 H (0.72-1.25) mg/dL Glucose 143 H (70-99) mg/dL Hemoglobin A1c 7.3 H ( - 5.6) % Calcium 8.7 (8.6-10.8) mg/dL Calcium panel 04/23/17 Range/Units 06:45 Calcium 8.7 (8.6-10.8) mg/dL Pituitary panel 04/23/17 Range/Units 06:45 Sodium 139 (136-145) mEq/L Potassium 4.5 (3.5-4.5) mEq/L Chloride 109 (98-109) mEq/L Carbon Dioxide 24 (19-29) mEq/L BUN 18 (8-26) mg/dL Creatinine 1.71 H (0.72-1.25) mg/dL Glucose 143 H (70-99) mg/dL Calcium 8.7 (8.6-10.8) mg/dL Adrenal panel 04/23/17 Range/Units 06:45 Sodium 139 (136-145) mEq/L Potassium 4.5 (3.5-4.5) mEq/L Chloride 109 (98-109) mEq/L Carbon Dioxide 24 (19-29) mEq/L BUN 18 (8-26) mg/dL Creatinine 1.71 H (0.72-1.25) mg/dL Glucose 143 H (70-99) mg/dL Calcium 8.7 (8.6-10.8) mg/dL - VTE Documentation of Mechanical Device: Intermittent pneumatic compression device Consult Discharge Plan - Plan Referrals: NONE,PCP [Primary Care Provider] -
[2017-04-23] MEDS: Insulin LISPRO 300 UNITS/3 ML VIAL SQ SCH ×3 (08:45→16:46)
[2017-04-23] MEDS: *HR* OxyCODONE/APAP 5/325 TABLET PO PRN ×2 (09:04→22:29)
[2017-04-23] MEDS: Ranolazine 500 MG TAB.ER.12H PO SCH (09:05)
[2017-04-23] MEDS: Isosorbide MONOnitrate (24 HR) 60 MG TAB.ER.24H PO SCH (09:05)
[2017-04-23] MEDS: *HR* LORazepam 0.5 MG TABLET PO SCH (09:06)
[2017-04-23] MEDS: cefTRIAXone 1,000 MG in Water for inj. (sterile) 10 ML IVP SCH (09:07)
[2017-04-23] MEDS ORDERED: *HR* Rivaroxaban 15 MG TABLET PO SCH ×2 (18:15→21:00)
--- NOTE | 2017-04-23 18:21 | Internal Med Progress Note ---
Date of Encounter: 04/23/17 Time of Encounter: 16:00 - Assessment and plan (1) Hypertension Current Visit: No Status: Chronic Assessment and plan: Blood pressure well controlled. We will continue to hold losartan. Qualifiers: Hypertension type: essential hypertension Qualified Code(s): I10 - Essential (primary) hypertension (2) DM type 2 (diabetes mellitus, type 2) Current Visit: No Status: Chronic Assessment and plan: Insulin sliding scale and Levemir basal coverage. Diabetic diet. 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 He is at high risk for recurrence of DVT and possibly PE if not fully anticoagulated and therefore we will restart his Xarelto tonight. Discussed the case with urology who agrees with anticoagulation if strictly necessary and close observation. (4) CAD (coronary artery disease) Current Visit: No Status: Chronic Qualifiers: Coronary Disease-Associated Artery/Lesion type: [place] artery [place] vs. transplanted heart: [place] heart Associated angina: without angina Qualified Code(s): I25.10 - Atherosclerotic heart disease of [place] coronary artery without angina pectoris (5) CKD (chronic kidney disease), stage III Current Visit: No Status: Chronic Assessment and plan: Monitor BUN and creatinine. Discontinue IV fluids. (6) Gross hematuria Current Visit: No Status: Resolved Assessment and plan: Status post Ny catheter placement under video guidance, with evacuation of a clot from a false passage that was identified during this cystoscopy. Gross hematuria has resolved, he continues to have straw-colored urine. We will monitor hemoglobin and hematocrit while starting anticoagulation, monitor urethral site every 6 hours per nursing. If hematuria restarts around the Ny catheter or hemoglobin drops will stop anticoagulation. The patient tolerates restarting anticoagulation he is to continue with Ny catheter for total of 10 days and follow-up with urology outpatient. (7) DVT prophylaxis Current Visit: Yes Status: Acute Assessment and plan: He tolerated some cutaneous heparin. He will be started on Xarelto. - Subjective Interval history: He was transferred from outside hospital yesterday for evaluation of gross hematuria. Currently reports no abdominal pain, hematuria has significantly improved since yesterday. He did have a CBI catheter placed in the OR yesterday. - Constitutional Vitals: Temp Pulse Resp BP Pulse Ox 97.1 F L 66 16 125/64 95 04/23/17 14:44 04/23/17 14:44 04/23/17 14:44 04/23/17 14:44 04/23/17 14:44 General appearance: Present: A&O X 3, no acute distress - Respiratory Respiratory exam: Present: CTAB. Absent: accessory muscle use, rales, rhonchi, wheezes - Cardiovascular Cardiovascular exam: Present: RRR, +S1, +S2. Absent: diastolic murmur, gallop, rubs, systolic murmur - GI/Abdominal GI/Abdominal exam: Present: normal bowel sounds, soft, no peritoneal signs. Absent: distended, tenderness - Additional comments: Normal uncircumcised penis with no lesions. Ny catheter is present draining straw-colored urine. Minimal amount of dried blood around the urethral meatus. - Extremities Exam Extremities exam: Present: warm, radial pulses palpable and symmetrical. Absent : calf tenderness, cyanotic, pedal edema Internal Medicine: Result - Labs CBC & Chem 7: 04/23/17 06:45 04/23/17 06:45 Labs: Short CBC 04/22/17 04/23/17 Range/Units 18:13 06:45 WBC 15.4 H 14.9 H (4.3-11.1) K/mcL Hgb 11.9 L 11.4 L (12.9-16.9) g/dL Hct 37.4 L 35.9 L (37.5-50.1) % Plt Count 215 182 (140-400) K/mcL Neutrophils # 12.7 H 10.5 H (1.6-8.9) K/mcL BMP 04/23/17 06:45 Sodium 139 Potassium 4.5 Chloride 109 Carbon Dioxide 24 BUN 18 Creatinine 1.71 H Glucose 143 H Calcium 8.7 - ABG Interpretation ABG results: PT/INR, D-dimer PT 15.0 Seconds (9.4-12.1) H 04/22/17 05:48 - VTE Documentation of Mechanical Device: Intermittent pneumatic compression device Consult Discharge Plan - Plan Referrals: NONE,PCP [Primary Care Provider] -
[2017-04-23] MEDS ORDERED: Insulin LISPRO 300 UNITS/3 ML VIAL SQ SCH (21:00)
[2017-04-23] MEDS: Sennosides/Docusate Sodium TABLET PO SCH (22:25)
[2017-04-24 05:31] LABS: Basophils # 0.1 K/mcL (0.0-0.2); Basophils % 0.5 %; Eosinophils # 0.2 K/mcL (0.0-0.6); Eosinophils % 1.6 %; Hematocrit 34.1 % (37.5-50.1); Hemoglobin 10.7 g/dL (12.9-16.9); Immature Granulocytes % 1.3 % (0-4); Lymphocytes # 3.4 K/mcL (0.6-4.6); Lymphocytes % 34.1 %; Mean Corpuscular HGB Conc 31.4 g/dL (31.6-35.5); Mean Corpuscular Hemoglobin 25.1 pg (28.0-33.3); Mean Platelet Volume 11.3 fL (9.4-12.4); Monocytes # 0.9 K/mcL (0.0-1.3); Monocytes % 8.4 %; Neutrophils # 5.5 K/mcL (1.6-8.9); Nucleated Red Blood Cells 0.2 /100 WBC (0); Platelet Count 185 K/mcL (140-400); Red Blood Count 4.26 M/mcL (4.19-5.50); Red Cell Distribution Width 15.4 % (11.5-14.5); Segmented Neutrophils % 54.1 %
[2017-04-24 05:47] LABS: Calcium 8.5 mg/dL (8.6-10.8)
[2017-04-24] MEDS: Insulin LISPRO 300 UNITS/3 ML VIAL SQ SCH ×2 (09:20→12:16)
[2017-04-24] MEDS: Isosorbide MONOnitrate (24 HR) 60 MG TAB.ER.24H PO SCH (09:31)
[2017-04-24] MEDS: Ranolazine 500 MG TAB.ER.12H PO SCH (09:31)
[2017-04-24] MEDS: Sennosides/Docusate Sodium TABLET PO SCH (09:31)
[2017-04-24] MEDS: *HR* LORazepam 0.5 MG TABLET PO SCH (09:32)
[2017-04-24] MEDS: cefTRIAXone 1,000 MG in Water for inj. (sterile) 10 ML IVP SCH (09:33)
--- NOTE | 2017-04-24 10:25 | Discharge Summary ---
Date of Encounter: 04/24/17 Time of Encounter: 10:21 - Discharge Diagnosis (1) CAD (coronary artery disease) Priority: Secondary Status: Chronic Qualifiers: Coronary Disease-Associated Artery/Lesion type: [place] artery [place] vs. 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: with senior care use Chronic kidney disease stage: stage 3 (moderate) Qualified Code(s): E11.22 - Type 2 diabetes mellitus with diabetic chronic kidney disease; N18.3 - Chronic kidney disease, stage 3 ( moderate); 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 (4) Gross hematuria Priority: Primary Status: Resolved (5) Hypertension Priority: Secondary Status: Chronic Qualifiers: Hypertension type: essential hypertension Qualified Code(s): I10 - Essential (primary) hypertension (6) Pulmonary embolism on long-term anticoagulation therapy Priority: Secondary Status: Chronic (7) Urinary retention Priority: Secondary Status: Chronic - Discharge Medications Home Medications: Tamsulosin HCl [Flomax] 0.4 mg PO DAILY 01/07/15 [History] Buspirone HCl [Buspar] 7.5 mg PO DAILY 11/22/16 [History] Spironolactone [Aldactone] 25 mg PO DAILY 11/22/16 [History] Atorvastatin Calcium [Lipitor] 80 mg PO DAILY 11/30/16 [History] Gemfibrozil [Lopid] 600 mg PO DAILY 11/30/16 [History] Rivaroxaban [Xarelto] 15 mg PO QPM #30 tablet 03/06/17 [Rx] Carvedilol [Coreg] 6.25 mg PO DAILY 04/21/17 [History] Isosorbide MONOnitrate (24 HR) [Imdur] 60 mg PO DAILY 04/21/17 [History] Oxycodone HCl/Acetaminophen [Percocet 5-325 mg Tablet] 1 each PO Q8H 04/21/17 [ History] Furosemide [Lasix] 20 mg PO DAILY 04/22/17 [History] LORazepam [Ativan] 0.5 mg PO DAILY 04/22/17 [History] Losartan [Cozaar] 25 mg PO DAILY 04/22/17 [History] Omeprazole [PriLOSEC] 40 mg PO DAILY 04/22/17 [History] Oxybutynin [Ditropan] 5 mg PO DAILY 04/22/17 [History] Ranolazine [Ranexa] 500 mg PO DAILY 04/22/17 [History] Sertraline [Zoloft] 50 mg PO DAILY 04/22/17 [History] Sitagliptin Phosphate [Januvia] 50 mg PO DAILY 04/22/17 [History] Allergies/Adverse Reactions: 3 Allergy/AdvReac Type Severity Reaction Status Date / Time No Known Allergies Allergy Verified 02/03/17 10:43 Date of admission: 04/22/17 07:57 Primary care physician: PCP [facility] Consults: Urology: Dr. Enriquez Discharging clinician: Arianna Rolon Anticipated date of discharge: 04/24/17 - Discharge Instructions Follow Up With: NONE,PCP [Primary Care Provider] - Hospital course: Mr. Curtis is a 71 year old male - Time Spent with Patient Total time spent providing and/or coordinating discharge services: - Constitutional Vitals: Temp Pulse Resp BP Pulse Ox 97.7 F 86 12 134/75 95 04/24/17 08:25 04/24/17 08:25 04/24/17 08:25 04/24/17 08:25 04/24/17 08:25 General appearance: Present: A&O X 3, no acute distress - VTE Documentation of Mechanical Device: Intermittent pneumatic compression device
--- NOTE | 2017-04-24 10:30 | Internal Med Progress Note ---
Date of Encounter: 04/24/17 Time of Encounter: 10:27 - Assessment and plan (1) CAD (coronary artery disease) Current Visit: No Status: Chronic Qualifiers: Coronary Disease-Associated Artery/Lesion type: [place] artery [place] vs. transplanted heart: [place] heart Associated angina: without angina Qualified Code(s): I25.10 - Atherosclerotic heart disease of [place] coronary artery without angina pectoris (2) CKD (chronic kidney disease), stage III Current Visit: No Status: Chronic Assessment and plan: Monitor BUN and creatinine. Renal function improved from previous day continue to hold Losartan and Spironolactone (3) DM type 2 (diabetes mellitus, type 2) Current Visit: No Status: Chronic Assessment and plan: Insulin sliding scale and Levemir basal coverage. Diabetic diet. 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 Gross hematuria has resolved, he continues to have straw-colored urine. Pt tolerated anticoagulation. Mild drop in H&H noted but acceptable If hematuria restarts around the Ny catheter or hemoglobin drops will stop anticoagulation. The patient tolerates restarting anticoagulation he is to continue with Ny catheter for total of 10 days and follow-up with urology outpatient. (5) Hypertension Current Visit: No Status: Chronic Assessment and plan: Blood pressure well controlled. 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 He is at high risk for recurrence of DVT and possibly PE if not fully anticoagulated and therefore continue Xarelto support. - Subjective Interval history: Patient seen and examined at bedside. Resting in bed and reports of feeling better compared to previous day Medicine on board for management of co-morbidities - Constitutional Vitals: Temp Pulse Resp BP Pulse Ox 97.7 F 86 12 134/75 95 04/24/17 08:25 04/24/17 08:25 04/24/17 08:25 04/24/17 08:25 04/24/17 08:25 General appearance: Present: A&O X 3, no acute distress - Head Head exam: Present: atraumatic, normocephalic - Eye Eye exam: Present: conjuntiva pink, sclera anicteric - Respiratory Respiratory exam: Absent: respiratory distress, wheezes - Cardiovascular Cardiovascular exam: Present: RRR, +S1, +S2. Absent: diastolic murmur, gallop, rubs, systolic murmur - GI/Abdominal GI/Abdominal exam: Present: normal bowel sounds, soft, no peritoneal signs. Absent: distended, tenderness - Extremities Exam Extremities exam: Present: warm, radial pulses palpable and symmetrical. Absent : calf tenderness - Neurological Exam Neurological exam: Present: alert, oriented X3 Internal Medicine: Result - Labs CBC & Chem 7: 04/24/17 04:56 04/24/17 04:56 Labs: Short CBC 04/24/17 Range/Units 04:56 WBC 10.1 (4.3-11.1) K/mcL Hgb 10.7 L (12.9-16.9) g/dL Hct 34.1 L (37.5-50.1) % Plt Count 185 (140-400) K/mcL Neutrophils # 5.5 (1.6-8.9) K/mcL BMP 04/24/17 04:56 Sodium 139 Potassium 4.0 Chloride 109 Carbon Dioxide 19 BUN 20 Creatinine 1.62 H Glucose 116 H Calcium 8.5 L - ABG Interpretation ABG results: PT/INR, D-dimer PT 15.0 Seconds (9.4-12.1) H 04/22/17 05:48 - VTE Documentation of Mechanical Device: Intermittent pneumatic compression device Consult Discharge Plan - Plan Referrals: NONE,PCP [Primary Care Provider] -
[2017-04-24] MEDS: *HR* OxyCODONE/APAP 5/325 TABLET PO PRN (10:39)
--- NOTE | 2017-04-24 14:44 | Discharge Summary ---
Date of Encounter: 04/24/17 Time of Encounter: 10:27 - Discharge Diagnosis (1) CAD (coronary artery disease) Priority: Secondary Status: Chronic Qualifiers: Coronary Disease-Associated Artery/Lesion type: [place] artery [place] vs. transplanted heart: [place] heart Associated angina: without angina Qualified Code(s): I25.10 - Atherosclerotic heart disease of [place] coronary artery without angina pectoris (2) CKD (chronic kidney disease), stage III Priority: Secondary Status: Chronic (3) DM type 2 (diabetes mellitus, type 2) Priority: Secondary Status: Chronic Qualifiers: Diabetes mellitus complication status: with kidney complications Diabetes mellitus complication detail: with chronic kidney disease Diabetes mellitus long-term insulin use: with long-term use Chronic kidney disease stage: stage 3 (moderate) Qualified Code(s): E11.22 - Type 2 diabetes mellitus with diabetic chronic kidney disease; N18.3 - Chronic kidney disease, stage 3 ( moderate); Z79.4 - penitentiary (current) use of insulin (4) Gross hematuria Priority: Primary Status: Resolved (5) Hypertension Priority: Secondary Status: Chronic Qualifiers: Hypertension type: essential hypertension Qualified Code(s): I10 - Essential (primary) hypertension (6) Pulmonary embolism on long-term anticoagulation therapy Priority: Secondary Status: Chronic - Discharge Medications Home Medications: Tamsulosin HCl [Flomax] 0.4 mg PO DAILY 01/07/15 [History] Buspirone HCl [Buspar] 7.5 mg PO DAILY 11/22/16 [History] Spironolactone [Aldactone] 25 mg PO DAILY 11/22/16 [History] Atorvastatin Calcium [Lipitor] 80 mg PO DAILY 11/30/16 [History] Gemfibrozil [Lopid] 600 mg PO DAILY 11/30/16 [History] Rivaroxaban [Xarelto] 15 mg PO QPM #30 tablet 03/06/17 [Rx] Carvedilol [Coreg] 6.25 mg PO DAILY 04/21/17 [History] Isosorbide MONOnitrate (24 HR) [Imdur] 60 mg PO DAILY 04/21/17 [History] Oxycodone HCl/Acetaminophen [Percocet 5-325 mg Tablet] 1 each PO Q8H 04/21/17 [ History] Furosemide [Lasix] 20 mg PO DAILY 04/22/17 [History] LORazepam [Ativan] 0.5 mg PO DAILY 04/22/17 [History] Losartan [Cozaar] 25 mg PO DAILY 04/22/17 [History] Omeprazole [PriLOSEC] 40 mg PO DAILY 04/22/17 [History] Oxybutynin [Ditropan] 5 mg PO DAILY 04/22/17 [History] Ranolazine [Ranexa] 500 mg PO DAILY 04/22/17 [History] Sertraline [Zoloft] 50 mg PO DAILY 04/22/17 [History] Sitagliptin Phosphate [Januvia] 50 mg PO DAILY 04/22/17 [History] Allergies/Adverse Reactions: 3 Allergy/AdvReac Type Severity Reaction Status Date / Time No Known Allergies Allergy Verified 02/03/17 10:43 Date of admission: 04/22/17 07:57 Primary care physician: PCP MEME Consults: Urology: Dr. Enriquez Discharging clinician: Arianna Rolon Anticipated date of discharge: 04/24/17 - Patient Status Disposition: Home Health Service Condition: Good Overall status at discharge: patient is back to baseline - Discharge Instructions Follow Up With: NONE,PCP [Primary Care Provider] - Additional Instructions: Please follow up with urology within ten days after your discharge from the hospital l Please follow up with your primary care physician within one week after your discharge from the hospital Please continue to hold your home dose of Losartan and Spironolactone until your follow up with your primary care physician. Please resume all your other home medications as prescribed by your primary care physician. - Diet and Activity Activity: increase activity as tolerated Diet: diabetic diet, low fat, low cholesterol Hospital course: Mr. Curtis is a 71 year old male admitted for gross hematuria. He was seen by urology and underwent cystoscopy. His thompson catheter was replaced and hematuria resolved. His home dose of Xarelto was restarted. Pt's home dose of losartan and spironolactone were placed on hold due to hyperkalemia. Pt is currently hemodynamically stable and will be discharged to home with thompson catheter and follow up with urology and pcp. - Time Spent with Patient Total time spent providing and/or coordinating discharge services: Greater than 30 minutes - Constitutional Vitals: Temp Pulse Resp BP Pulse Ox 97.9 F 83 14 137/68 96 04/24/17 11:12 04/24/17 11:12 04/24/17 11:12 04/24/17 11:12 04/24/17 11:12 General appearance: Present: A&O X 3, no acute distress - VTE Documentation of Mechanical Device: Intermittent pneumatic compression device
[2017-04-24 14:49] VITALS: BP 129/76
--- NOTE | 2017-04-24 14:50 | Physician Discharge Referral ---
Home Health/Hosp Referral Info Transfer to: Home Health Provider in Charge Post Discharge: PCP - Diagnosis (1) CAD (coronary artery disease) Priority: Secondary Status: Chronic (2) CKD (chronic kidney disease), stage III Priority: Secondary Status: Chronic (3) DM type 2 (diabetes mellitus, type 2) Priority: Secondary Status: Chronic (4) Gross hematuria Priority: Primary Status: Resolved (5) Hypertension Priority: Secondary Status: Chronic (6) Pulmonary embolism on long-term anticoagulation therapy Priority: Secondary Status: Chronic - Respiratory Orders Smoking Cessation: Smoking cessation has been advised. For more information, call the [place] Tobacco Quit Line at 4-518-WTBC-NOW. - Services Needed Following services are medically necessary services: Nursing, Home Health Aide, Physical Therapy, Occupational Therapy - Transfer Medications Home Medications: Tamsulosin HCl [Flomax] 0.4 mg PO DAILY 01/07/15 [History] Buspirone HCl [Buspar] 7.5 mg PO DAILY 11/22/16 [History] Spironolactone [Aldactone] 25 mg PO DAILY 11/22/16 [History] Atorvastatin Calcium [Lipitor] 80 mg PO DAILY 11/30/16 [History] Gemfibrozil [Lopid] 600 mg PO DAILY 11/30/16 [History] Rivaroxaban [Xarelto] 15 mg PO QPM #30 tablet 03/06/17 [Rx] Carvedilol [Coreg] 6.25 mg PO DAILY 04/21/17 [History] Isosorbide MONOnitrate (24 HR) [Imdur] 60 mg PO DAILY 04/21/17 [History] Oxycodone HCl/Acetaminophen [Percocet 5-325 mg Tablet] 1 each PO Q8H 04/21/17 [ History] Furosemide [Lasix] 20 mg PO DAILY 04/22/17 [History] LORazepam [Ativan] 0.5 mg PO DAILY 04/22/17 [History] Losartan [Cozaar] 25 mg PO DAILY 04/22/17 [History] Omeprazole [PriLOSEC] 40 mg PO DAILY 04/22/17 [History] Oxybutynin [Ditropan] 5 mg PO DAILY 04/22/17 [History] Ranolazine [Ranexa] 500 mg PO DAILY 04/22/17 [History] Sertraline [Zoloft] 50 mg PO DAILY 04/22/17 [History] Sitagliptin Phosphate [Januvia] 50 mg PO DAILY 04/22/17 [History] Allergies/Adverse Reactions: 3 Allergy/AdvReac Type Severity Reaction Status Date / Time No Known Allergies Allergy Verified 02/03/17 10:43 Certification: Further, I certify that my clinical findings support that this patient is homebound (i.e. absences from home require considerable and taxing effort and are for medical reasons or druze services or infrequently or short duration when for other reasons) because: Homebound Reason: Patient requires assistance of a person or device to safely leave home Attestation: My signature below is to certify that this patient is under my care and that I, or nurse practitioner, or a physician's assistant hall director working with me, has a face-to -face encounter with this patient.
== END 2017-04-24 17:10 | disposition home health service (06) | DRG 696 ==
LOC: 3ANU → SUATTDRO 03:24 → 3NENU 09:13
PROVIDERS: ADMIT Hospitalist; ATTEND Internal Medicine

== ENCOUNTER 2018-02-03 10:41 | Inpatient (IN) ==
[2018-02-03] MEDS ORDERED: Aspirin 325 MG TABLET PO ONE (10:52)
[2018-02-03 11:28] LABS: Basophils % 0.4 %; Nucleated Red Blood Cells 0.3 /100 WBC (0)
[2018-02-03 11:29] LABS: Eosinophils # 0.1 K/mcL (0.0-0.6); Eosinophils % 0.9 %; Hematocrit 32.9 % (37.5-50.1); Immature Granulocytes % 0.7 % (0-4); Lymphocytes % 18.3 %; Mean Corpuscular HGB Conc 27.4 g/dL (31.6-35.5); Mean Corpuscular Hemoglobin 17.8 pg (28.0-33.3); Mean Platelet Volume 9.5 fL (9.4-12.4); Monocytes # 0.9 K/mcL (0.0-1.3); Monocytes % 9.3 %; Neutrophils # 6.7 K/mcL (1.6-8.9); Platelet Count 247 K/mcL (140-400); Red Blood Count 5.06 M/mcL (4.19-5.50); Red Cell Distribution Width 22.5 % (11.5-14.5); Segmented Neutrophils % 70.4 %
--- NOTE | 2018-02-03 11:29 | Emergency Department Note ---
Disposition Clinical Impression: Non-STEMI (non-ST elevated myocardial infarction) Disposition: Admitted As Inpatient Condition: Fair Referrals: NONE,PCP [Primary Care Provider] - Forms: ED Satisfaction Letter Chest Pain HPI - General Chief Complaint: ED Chest Pain Stated Complaint: JEROME Chest pain Time Seen by Provider: 02/03/18 10:44 Source: patient, EMS Limitations: no limitations Vital Signs Reviewed: Yes Nursing Notes Reviewed: Yes - History of Present Illness HPI Narrative: Patient presents to the emergency department from nephrology office for evaluation of chest pain. He had been seen and evaluated there partially to get evaluated for cardiac catheter and clearance. Patient has a significant past medical history including cardiomyopathy and CHF, coronary artery disease, hypertension, PE on Xarelto, kidney disease. Patient is at intermittent chest pains over the last 3 months. Robert worse nature. Worse with exertion. Described as pressure in the center of his chest with associated nausea. He has had swelling in his legs but is unsure about overall weight gain. Also has COPD and uses intermittent oxygen at home. Has not been using it recently but does have mild wheezing on exam. Severity scale (1-10): 6 - Related Data Home Medications Medication Instructions Recorded Confirmed Tamsulosin HCl [Flomax] 0.4 mg PO DAILY 01/07/15 12/23/17 Buspirone HCl [Buspar] 7.5 mg PO DAILY 11/22/16 12/23/17 Atorvastatin Calcium [Lipitor] 80 mg PO DAILY 11/30/16 12/23/17 Carvedilol [Coreg] 6.25 mg PO DAILY 04/21/17 12/23/17 Isosorbide MONOnitrate (24 HR) 120 mg PO DAILY 04/21/17 12/23/17 [Imdur] Furosemide [Lasix] 40 mg PO DAILY 04/22/17 12/23/17 LORazepam [Ativan] 0.5 mg PO HS 04/22/17 12/23/17 Losartan [Cozaar] 25 mg PO DAILY 04/22/17 12/23/17 Oxybutynin [Ditropan] 5 mg PO DAILY 04/22/17 12/23/17 Sertraline [Zoloft] 50 mg PO HS 04/22/17 12/23/17 Sitagliptin Phosphate [Januvia] 50 mg PO DAILY 04/22/17 12/23/17 Esomeprazole Magnesium [Nexium] 40 mg PO DAILY 08/22/17 12/23/17 Hyoscyamine SL [Levsin Sl] 1 - 2 tab SL Q2H PRN 08/22/17 12/23/17 Morphine Sulfate [Morphine Oral 0.25 ml PO Q4H PRN 08/22/17 12/23/17 Solution] Aspirin [Lo-Dose Aspirin EC] 81 mg PO DAILY 12/23/17 12/23/17 Docusate Sodium [Dok] 100 mg PO BID 12/23/17 12/23/17 Nitroglycerin [Nitrostat] 0.4 mg SL Q5M PRN 12/23/17 12/23/17 Previous Rx's Medication Instructions Recorded Rivaroxaban [Xarelto] 15 mg PO QPM #30 tablet 03/06/17 Nystatin Cream [Mycostatin Cream] 1 appl TP BID #1 tube 12/27/17 Oxycodone HCl/Acetaminophen 1 each PO Q6H PRN 2 Days #8 tablet 12/27/17 [Percocet 5-325 mg Tablet] Allergies Allergy/AdvReac Type Severity Reaction Status Date / Time No Known Allergies Allergy Verified 08/22/17 19:56 Review of Systems: CONSTITUTIONAL: Diaphoresis and nausea with exertion No weight loss, fever, chills, weakness or fatigue. 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 SKIN: No rash or itching. CARDIOVASCULAR: Chest pain, swelling in the lower extremities RESPIRATORY: Shortness of breath with exertion GASTROINTESTINAL: No abdominal pain. GENITOURINARY: No burning on urination or hematuria. NEUROLOGICAL: No headache, dizziness, syncope, paralysis, ataxia, numbness or tingling in the extremities. No change in bowel or bladder control. MUSCULOSKELETAL: No muscle pain, back pain, joint pain or stiffness. Chest Pain PMH - Past Medical History Medical history: Reports: asthma, cardiomyopathy, CHF, COPD, coronary artery disease, diabetes, hypertension, myocardial infarction, pulmonary embolus, renal disease, valvular heart disease, other Surgical history: Reports: angioplasty/stent, cataract, herniorrhaphy, prostatectomy Psychiatric history: Reports: depression, panic disorder - Social History Smoking Status: Never smoker Alcohol use: Reports: none Drug use: Reports: none Physical Exam General: Well appearing, nontoxic, no acute distress Head: Normocephalic Atraumatic ENT: Airway patent, no stridor Neck: supple Chest: Mild wheezing bilaterally worse in the anterior lung malhotra Cardiac: Regular rhythm Abdomen: soft, nontender, nondistended; no guarding, rebound, or tenderness to percussion Musculoskeletal: +2 pitting edema through the calves Skin: No rash, normal skin tone Neuro: Alert and Oriented to person, place, and time; No focal deficit - General Limitations: no limitations General appearance: alert, in no apparent distress Course - Reevaluation(s) Reevaluation #1: Patient with mild elevation of GFR. At baseline. Patient with elevated troponin of 0.29. Patient chest pain-free on my evaluation. Patient does take several toe for atrial fibrillation. Has been placed on aspirin and heparin secondary to elevated enzymes. - Consultations Consultation #1: Discussed with cardiology. They are aware of the patient and will see them for consult. Consultation #2: I discussed with hospitalist. Patient accepted for admission. Vital Signs Temperature 98.7 F 02/03/18 10:48 Pulse Rate 80 02/03/18 10:48 Respiratory Rate 26 02/03/18 10:48 Blood Pressure 124/78 02/03/18 10:48 O2 Sat by Pulse Oximetry 99 02/03/18 10:48 Temperature 98.7 F 02/03/18 10:48 Pulse Rate 80 02/03/18 10:48 Respiratory Rate 26 02/03/18 10:48 Blood Pressure 124/78 02/03/18 11:37 O2 Sat by Pulse Oximetry 99 02/03/18 11:37 Oxygen Delivery Oxygen Delivery Room Air Chest Pain - Medical Records Medical records reviewed: Yes I reviewed the patient's medical records. - Lab Data Lab results reviewed: Yes I reviewed the patient's lab results. Result diagrams: 02/03/18 11:13 02/03/18 11:01 Lab Results 02/03/18 02/03/18 02/03/18 Range/Units 10:51 11:01 11:13 WBC 9.5 (4.3-11.1) K/mcL RBC 5.06 (4.19-5.50) M/mcL Hgb 9.0 L (12.9-16.9) g/dL Hct 32.9 L (37.5-50.1) % MCV 65.0 L (83.0-100.0) fL MCH 17.8 L (28.0-33.3) pg MCHC 27.4 L (31.6-35.5) g/dL RDW 22.5 H (11.5-14.5) % Plt Count 247 (140-400) K/mcL MPV 9.5 (9.4-12.4) fL Nucleated RBCs/100 WBC 0.3 H (0) /100 WBC PT 27.9 H (9.4-12.1) Seconds INR 2.5 APTT 39.0 H (26.0-36.0) Seconds Sodium 138 (136-145) mEq/L Potassium 4.2 (3.5-5.1) mEq/L Chloride 106 (98-107) mEq/L Carbon Dioxide 24 (23-29) mEq/L BUN 22 (8-23) mg/dL Creatinine 1.48 H (0.70-1.30) mg/dL Est GFR ( Amer) 56 L (> 60) Est GFR (Non-Af Amer) 46 L (> 60) BUN/Creatinine Ratio 15 (6-26) Glucose 149 H (70-105) mg/dL Calculated Osmolality 292 (280-300) Calcium 8.7 (8.6-10.3) mg/dL Troponin I 0.29 H* (< 0.04) ng/mL - Radiology Data Radiology results reviewed: Yes I reviewed the patient's radiology results. - EKG Data EKG attestation: Yes I reviewed and interpreted this EKG. EKG results narrative: EKG shows intermittent paced rhythm. Heart rate of 78. QRS 142. QTC 497. Patient has no elevations or depressions. Does not meet sclerosis criteria. Patient does have some T-wave inversions throughout the anterior leads which are different from EKG of 12/23/17. Repeat EKG shows more clear baseline without significant PVC or paced rhythm and there is no evidence of acute change from previous EKG.
[2018-02-03 11:32] LABS: Lymphocytes # 1.7 K/mcL (0.6-4.6)
[2018-02-03] MEDS: Ipratropium/Albuterol Neb 3 ML IH ONE ×2 (11:34→11:41)
[2018-02-03 11:36] LABS: INR 2.5; Prothrombin Time 27.9 Seconds (9.4-12.1)
[2018-02-03] MEDS ORDERED: Ipratropium/Albuterol Neb 3 ML ONE (11:39)
[2018-02-03 11:48] LABS: Calcium 8.7 mg/dL (8.6-10.3); Potassium 4.2 mEq/L (3.5-5.1)
[2018-02-03 11:51] LABS: Troponin I 0.29 ng/mL (< 0.04)
[2018-02-03] MEDS ORDERED: *HR* Heparin 5,000 UNIT/ML VIAL IVP PRN ×2 (11:54)
[2018-02-03] MEDS ORDERED: *HR* Heparin 5,000 UNIT/ML VIAL IVP ONE (11:54)
[2018-02-03] MEDS ORDERED: Heparin 25,000 UNIT/500 ML D5W 25,000 UNIT/500 ML BAG IVC SCH (12:00)
[2018-02-03 12:20] LABS: Anisocytosis 1+ (Not Present); Platelet Estimate Normal (Normal)
[2018-02-03 12:21] LABS: Microcytosis Present (Not Present); Poikilocytosis 1+ (Not Present); Polychromasia 1+ (Not Present)
--- NOTE | 2018-02-03 14:43 | Cardiology Consult Note ---
Date of Encounter: 02/04/18 Time of Encounter: 14:30 Assessment and Plan (1) Chest pain Current Visit: No Status: Resolved A/R/B of LHC discussed with him including 1% chance of MT//CVA/CABG/NIKI/ bleeding. Pt aware and agreeable with proceeding. INR 2.5 today, will discuss with interventionalist communication equipment mechanic. Gentle hydration to prevent NIKI in context of systolic CHF and mucomyst ordered, as favored by our nephrologists. Qualifiers: Chest pain type: chest pain due to myocardial ischemia Ischemic chest pain type: unstable angina pectoris Qualified Code(s): I20.0 - Unstable angina (2) Systolic CHF with reduced left ventricular function, NYHA class 2 Current Visit: Yes Status: Acute (3) CAD (coronary artery disease) Current Visit: Yes Status: Chronic NSTEMI - A/R/B of LHC discussed with patient. Continue medical management. Qualifiers: Coronary Disease-Associated Artery/Lesion type: [place] artery [place] vs. transplanted heart: [place] heart Associated angina: with unstable angina Qualified Code(s): I25.110 - Atherosclerotic heart disease of [place] coronary artery with unstable angina pectoris (4) Systolic CHF Current Visit: Yes Status: Acute LHC, maintain euvolemia. Qualifiers: Heart failure chronicity: chronic Qualified Code(s): I50.22 - Chronic systolic (congestive) heart failure Discussion w patient/family: The assessment and plan as outlined above was discussed with the patient and/or family members who expressed understanding and agreement. All questions were answered. Thank you for involving us in the care of your patient. Please call with any questions. History of Present Illness Consult date: 02/04/18 Consult reason: Chest pain Chief complaint: Chest pain History of present illness: Mr. Curtis is a 72 year old male w CAD sp PCI prox LAD (last [facility] 2014 [facility] 50% ISR with FFR 0.83) and systolic CHF with EF worse on repeat TTE down to 35%, CKD 3, presenting with chest pain like his previous angina. It is currently relieved but has been recurrent over last few days. No syncope or diaphoresis. Past Med Surg Social Fam HX - Past Medical History Medical history: asthma, cardiomyopathy, CHF, COPD, coronary artery disease, diabetes, hypertension, myocardial infarction, pulmonary embolus, renal disease , valvular heart disease, other Additional medical history: [facility] Psychiatric history: depression, panic disorder - Past Surgical History Surgical History: angioplasty/stent, cataract, herniorrhaphy, prostatectomy Additional surgical history: heart cath. stents x 10. hemorrhoids - Social History Smoking Status: Never smoker Smokeless Tobacco Status: No Alcohol use: none Drug use: none - Family History Mother Hx Family Cardiac Disorders: Yes Father Hx Family Cardiac Disorders: Yes Medications and Allergies Buspirone HCl [Buspar] 7.5 mg PO DAILY 11/22/16 [History] Atorvastatin Calcium [Lipitor] 80 mg PO QPM 11/30/16 [History] Carvedilol [Coreg] 6.25 mg PO DAILY 04/21/17 [History] Furosemide [Lasix] 40 mg PO DAILY 04/22/17 [History] LORazepam [Ativan] 0.5 mg PO HS 04/22/17 [History] Losartan [Cozaar] 25 mg PO DAILY 04/22/17 [History] Oxybutynin [Ditropan] 5 mg PO DAILY 04/22/17 [History] Sertraline [Zoloft] 50 mg PO HS 04/22/17 [History] Aspirin [Lo-Dose Aspirin EC] 81 mg PO DAILY 12/23/17 [History] Docusate Sodium [Dok] 100 mg PO BID 12/23/17 [History] Oxycodone HCl/Acetaminophen [Percocet 5-325 mg Tablet] 1 each PO Q6H PRN 2 Days #8 tablet 12/27/17 [Rx] Dextran 70/Hypromellose [Artificial Tears] 1 drop BOTH EYES BID 02/03/18 [ History] Isosorbide MONOnitrate [Isosorbide Mononitrate ER] 120 mg PO DAILY 02/03/18 [ History] Linagliptin [Tradjenta] 5 mg PO DAILY 02/03/18 [History] Omeprazole [PriLOSEC] 20 mg PO DAILY 02/03/18 [History] Potassium Chloride [K-Tab ER] 20 meq PO DAILY 02/03/18 [History] Tamsulosin [Flomax] 0.4 mg PO DAILY 02/03/18 [History] 3 Allergy/AdvReac Type Severity Reaction Status Date / Time No Known Allergies Allergy Verified 02/03/18 12:34 All Systems Review: The remainder of the systems were reviewed and are negative - Constitutional Constitutional: no chills, no fever(s) - EENT Eyes: no blurred vision, no loss of vision Nose, mouth and throat: no dysphagia, no epistaxis - Cardiovascular Cardiovascular: chest pain at rest, chest pain with exertion - Respiratory Respiratory: no hemoptysis, no wheezing - Gastrointestinal Gastrointestinal: no hematemesis, no hematochezia - Genitourinary Genitourinary: no hematuria, no nocturia - Musculoskeletal Musculoskeletal: no muscle cramps, no muscle weakness - Integumentary Integumentary: no erythema, no unusual bruising - Neurological Neurological: no syncope, no tingling - Psychiatric Psychiatric: no hallucinations, no panic attacks - Hematological/Lymphatic Hematologic/Lymphatic: no easy bleeding, no easy bruising Physical Examination Vital Signs, Last 4 Hours Pulse Resp BP Pulse Ox 02/03/18 14:17 16 94/56 02/03/18 13:00 83 18 114/76 100 General: Conversant HEENT: Atraumatic Neck: No JVD Cardiac: Reg Rate and Rhythm Lungs: Normal Breath Sounds Neuro: Alert and responsive Abdomen: Soft Skin: No rashes noted on visualized skin Musculoskeletal: No Chest Wall Tenderness Extremities: No Edema Results 02/04/18 00:10 02/04/18 00:10 Consult Discharge Plan - Plan Referrals: NONE,PCP [Primary Care Provider] -
[2018-02-03] MEDS ORDERED: 0.9 % Sodium Chloride 1,000 ML IVC SCH (14:45)
[2018-02-03] MEDS ORDERED: Naloxone 0.4 MG/ML INJ IVP PRN (14:58)
--- NOTE | 2018-02-03 16:22 | Internal Med History&Physical ---
<Gregorio Nick - Last Filed: 02/03/18 17:48> Date of Encounter: 02/03/18 Internal Medicine - H&P: HPI History of present illness: Mr. Curtis is a 72 year old male Internal Medicine - H&P: Meds Buspirone HCl [Buspar] 7.5 mg PO DAILY 11/22/16 [History] Atorvastatin Calcium [Lipitor] 80 mg PO QPM 11/30/16 [History] Carvedilol [Coreg] 6.25 mg PO DAILY 04/21/17 [History] Furosemide [Lasix] 40 mg PO DAILY 04/22/17 [History] LORazepam [Ativan] 0.5 mg PO HS 04/22/17 [History] Losartan [Cozaar] 25 mg PO DAILY 04/22/17 [History] Oxybutynin [Ditropan] 5 mg PO DAILY 04/22/17 [History] Sertraline [Zoloft] 50 mg PO HS 04/22/17 [History] Aspirin [Lo-Dose Aspirin EC] 81 mg PO DAILY 12/23/17 [History] Docusate Sodium [Dok] 100 mg PO BID 12/23/17 [History] Oxycodone HCl/Acetaminophen [Percocet 5-325 mg Tablet] 1 each PO Q6H PRN 2 Days #8 tablet 12/27/17 [Rx] Dextran 70/Hypromellose [Artificial Tears] 1 drop BOTH EYES BID 02/03/18 [ History] Isosorbide MONOnitrate [Isosorbide Mononitrate ER] 120 mg PO DAILY 02/03/18 [ History] Linagliptin [Tradjenta] 5 mg PO DAILY 02/03/18 [History] Omeprazole [PriLOSEC] 20 mg PO DAILY 02/03/18 [History] Potassium Chloride [K-Tab ER] 20 meq PO DAILY 02/03/18 [History] Tamsulosin [Flomax] 0.4 mg PO DAILY 02/03/18 [History] 3 Allergy/AdvReac Type Severity Reaction Status Date / Time No Known Allergies Allergy Verified 02/03/18 12:34 All Systems PM: A 10-system review of systems was performed and is negative for pertinent findings except as documented above in the HPI. - Constitutional Vitals: Temp Pulse Resp BP Pulse Ox 97.5 F L 81 15 119/75 95 08/28/18 15:17 02/03/18 15:17 02/03/18 15:17 02/03/18 15:17 02/03/18 15:17 Internal Med - H&P Results - Labs CBC & Chem 7: 02/03/18 11:13 02/03/18 11:01 Labs: Cardiac Enzymes 02/03/18 Range/Units 16:54 Troponin I 0.39 H* (< 0.04) ng/mL - Assessment and plan (1) Non-STEMI (non-ST elevated myocardial infarction) Current Visit: Yes Status: Acute Assessment and plan: Plan for [facility] tomorrow. (2) CAD (coronary artery disease) Current Visit: Yes Status: Acute Qualifiers: Coronary Disease-Associated Artery/Lesion type: ute artery [place] vs. transplanted heart: ute heart Associated angina: with unstable angina Qualified Code(s): I25.110 - Atherosclerotic heart disease of ute coronary artery with unstable angina pectoris (3) CKD (chronic kidney disease), stage III Current Visit: No Status: Chronic (4) COPD (chronic obstructive pulmonary disease) Current Visit: No Status: Chronic Qualifiers: COPD type: chronic bronchitis Chronic bronchitis type: simple Qualified Code(s): J41.0 - Simple chronic bronchitis (5) Hypertension Current Visit: No Status: Chronic Qualifiers: Hypertension type: essential hypertension Qualified Code(s): I10 - Essential (primary) hypertension (6) DM type 2 (diabetes mellitus, type 2) Current Visit: No Status: Chronic Qualifiers: Diabetes mellitus longterm insulin use: without longterm use Diabetes mellitus complication status: with kidney complications Diabetes mellitus complication detail: with chronic kidney disease Chronic kidney disease stage : stage 3 (moderate) Qualified Code(s): E11.22 - Type 2 diabetes mellitus with diabetic chronic kidney disease; N18.3 - Chronic kidney disease, stage 3 ( moderate) (7) CHF (congestive heart failure) Current Visit: Yes Status: Acute Qualifiers: Heart failure type: systolic Heart failure chronicity: acute on chronic Qualified Code(s): I50.23 - Acute on chronic systolic (congestive) heart failure (8) Anasarca Current Visit: Yes Status: Chronic - Time Spent With Patient Total time spent is greater than 50% in coordination of care (as documented) at patient's floor/unit and/or counseling patient: - Attending Attestation The history, physical exam, and medical decision making was performed by the medical student either while I was physically present and actively involved or I personally re-performed the exam and medical decision making. I have verified the accuracy of the medical student's documentation with regards to the history, physical exam findings, and medical decision making on 02/03/18. Mr Curtis is a 72 y/o male sent to ED from nephrology due to increasing chest pain. He has had increasing episodes over the last couple of months with some associated diaphoresis. Prior hx of CAD. Has CKD and was being seen to plan for outpatient [facility]. Today he had increased pain and troponin was elevated in ED. He was subsequently placed in the hospital. At this time he denies CP but is complaining of cough. Exam alert Comfortable at this time Mucus membranes moist Lungs diminished Heart irreg and distant Abd soft Anasarca present Troponin has increased. I/P 1. Acute NSTEMI - EKG shows a flutter with paced beats. Troponin has increased. Has been on Xarelto - INR elevated. Plan is for [facility] tomorrow. 2. CKD 3. CAD 4 Anasarca - Lasix was held recently. Further diagnoses and plan as above. 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 Curtis is a 72 year old male with a PMH of [place] (stent x 10), CHF (EF 35%), CKD , COPD, HTN, DM, HLD, PE, who presented to [facility] for evaluation of chest pain. 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 It was requested that he be transported to the ED to be evaluated d/t concern for ACS. States he has been experiencing intermittent chest pain for roughly 3 months which has progressed in severity, frequency, and duration during the last 2 days. Pain is substernal, dull in nature, non-exertional, with occasional radiation into the left arm and up into the neck and jaw. These events occur without any inciting activity, often at rest, and usually last a couple of minutes although occasionally up to several hours. These episodes are similar in character to the pain he experienced during his previous [place]. The patient does have Isosorbide Dinitrate which he has been taking with increasing regularity due to the pain. Patient also occasionally experiences diaphoresis during these events. Additionally, the patient states that his diuretic was stopped 2 weeks ago by the nursing-home staff and he has experienced a 40 pound weight gain in the past 2 months, with decreased urine output, increased peripheral edema, myalgias/arthralgias, worsening exertional dyspnea, and a persistent but non-productive cough. Patient denies PND, orthopnea, fever, chills, abdominal pain, nausea, vomitting, diarrhea. On presentation, patient was tachypnic with a RR of 23 but all other vitals were WNL. Physical exam was significant for distant heart sounds with a regular rate but irregularly irregular rythym, course but distant breath sounds without evidence of crackles, +2 pretibial pitting edema and generalized anasarca. Labs significant for H/H of 9/32.9 with MCV of 65, creatinine 1.48 (which is baseline ), BNP 401, troponin 0.29 trending up, last measurement 0.39, and an elevated PT /aPTT. The patient was started on fluids, given ASA 325, and started on a Heparin drip d/t concern for ACS. Patient has multiple risk factors including HTN, HLD, DM. EKG shows atrial flutter with ventricularly paced beats, no ischemic changes from prior study. CXR shows cardiomegaly with mild pulmonary edema and trace pleural effusions. Past Med Surg Social Fam HX - Past Medical History Medical history: asthma, cardiomyopathy, CHF, COPD, coronary artery disease, diabetes, hypertension, myocardial infarction, pulmonary embolus, renal disease , valvular heart disease, other Additional medical history: [facility] Psychiatric history: depression, panic disorder - Past Surgical History Surgical History: angioplasty/stent, cataract, herniorrhaphy, prostatectomy Additional surgical history: heart cath. stents x 10. hemorrhoids - Social History Smoking Status: Never smoker Smokeless Tobacco Status: No Alcohol use: none Drug use: none - Family History Mother Hx Family Cardiac Disorders: Yes Father Hx Family Cardiac Disorders: Yes All Systems PM: See below Review of systems: See below - Constitutional Constitutional: weight gain, no chills, no fever(s), no night sweats - EENT Eyes: no change in vision, no discharge, no pain, no photophobia Additional comments: Legally Blind Ears: no tinnitus Nose, mouth and throat: no dysphagia, no hoarseness, no neck pain, no sore throat - Cardiovascular Cardiovascular ROS IM: chest pain, diaphoresis, dyspnea, palpitations, no lightheadedness, no syncope - Respiratory Respiratory: cough, dyspnea, dyspnea on exertion, no wheezing, no excessive phlegm production - Gastrointestinal Gastrointestinal: heartburn, nausea, no abdominal pain, no diarrhea, no hematemesis, no hematochezia, no melena, no vomiting - Genitourinary Genitourinary ROS male: urinary hesitancy, no dysuria, no flank pain, no hematuria - Musculoskeletal Musculoskeletal ROS IM: arthralgias, myalgias, no numbness, no tingling - Integumentary Integumentary IM: no rash, no unusual bruising - Neurological Neurological ROS: no confusion, no dizziness, no focal weakness, no headache(s) , no numbness, no paresthesias, no radicular pain, no tingling - Endocrine Endocrine IM: no polydipsia, no polyuria - Constitutional Vitals: Temp Pulse Resp BP Pulse Ox 97.5 F L 81 15 119/75 95 02/03/18 15:17 02/03/18 15:17 02/03/18 15:17 02/03/18 15:17 02/03/18 15:17 General appearance: Present: A&O X 3, obese Exam: see below - Head Head exam: Present: atraumatic, normocephalic - Eye Eye exam: Present: nystagmus Additional comments: Functionally Blind - ENT ENT exam: Present: mucous membranes moist - Neck Neck exam general surgery: Present: supple, trachea midline - Respiratory Respiratory exam: Present: decreased breath sounds, tachypnea - Cardiovascular Cardiovascular exam: Present: distant heart sounds, irregular rhythm (atrial flutter with ventricular pace) - GI/Abdominal GI/Abdominal exam: Present: distended, normal bowel sounds. Absent: rebound, rigid, tenderness - Extremities Exam Extremities exam: Present: pedal edema - Neurological Exam Neurological exam: Present: CN II-XII intact, no focal deficits Internal Med - H&P Results - Labs CBC & Chem 7: 02/03/18 11:13 02/03/18 11:01 - Assessment and plan (1) Non-STEMI (non-ST elevated myocardial infarction) Current Visit: Yes Status: Acute Assessment and plan: - Increasing troponins in setting of unstable angina with history of CAD - History of [place] with multiple PCI (stent x 10) - Heparin drip started, - Cardiology Consulted, [facility] tomorrow (PT currently supratheraputic) - Trend Troponins Code(s): I21.4 - Non-ST elevation (NSTEMI) myocardial infarction (2) CAD (coronary artery disease) Current Visit: Yes Status: Chronic Assessment and plan: Known history of CAD - Chest Pain currently resolved, patient resting comfortably - Extensive history of [place] with multiple previous interventions - Multiple risk factors including but not limited to HTN/HLD/T2DM - Last stress test 04/17/17: Severe perfusion defect of the anterior wall, apex, and inferior wall consistent with Infarction - EKG shows Atrial Flutter with non-specific ST and T changes present on prior studies, likely old [place] - Cardiology consulted, plan for [facility] tomorrow; appreciate recs. Qualifiers: Coronary Disease-Associated Artery/Lesion type: ute artery [place] vs. transplanted heart: ute heart Associated angina: with unstable angina Qualified Code(s): I25.110 - Atherosclerotic heart disease of ute coronary artery with unstable angina pectoris (3) CHF (congestive heart failure) Current Visit: Yes Status: Chronic Assessment and plan: Known history of CHF - last echo 10/13/17; LVEF 35% - Generalized anasarca on exam; CXR shows pulmonary edema - Concern for acute exacerbation - BNP 401 on admission - Mild hydration; diurese as tolerated by kidneys Qualifiers: Heart failure type: systolic Heart failure chronicity: acute on chronic Qualified Code(s): I50.23 - Acute on chronic systolic (congestive) heart failure (4) Anasarca Current Visit: Yes Status: Chronic Assessment and plan: Generalized Anasarca - likely secondary to poorly controlled CHF - In setting of elevated BNP cannot r/o acute decompensation - CXR shows pulmonary edema with trace effusions and cardiomegaly - Will continue to monitor for changes (5) CKD (chronic kidney disease), stage III Current Visit: No Status: Chronic Assessment and plan: Known history of CKD - Follows with Nephrology outpatient - Creatinine on admission 1.48, baseline between 1.5-1.8 - Avoid nephrotoxins if possible, diurese slowly as tolerable Code(s): N18.3 - Chronic kidney disease, stage 3 (moderate) (6) Hypertension Current Visit: No Status: Chronic Assessment and plan: Known history of Hypertension - BP stable since admission, 124/65 last - Continue home meds and monitor Qualifiers: Hypertension type: essential hypertension Qualified Code(s): I10 - Essential (primary) hypertension (7) COPD (chronic obstructive pulmonary disease) Current Visit: Yes Status: Chronic Assessment and plan: Known history of COPD - non-productive cough and diminished breath sounds on exam - required duoneb treatment in the ED - on 3L O2 at home; SpO2 95% on RA while interviewing - Continue home COPD meds and monitor Qualifiers: COPD type: chronic bronchitis Chronic bronchitis type: simple Qualified Code(s): J41.0 - Simple chronic bronchitis (8) DM type 2 (diabetes mellitus, type 2) Current Visit: Yes Status: Chronic Assessment and plan: Known history of DM -Accuchecks and SSI Qualifiers: 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
[2018-02-03] MEDS ORDERED: *HR* Dextrose 50 % in Water (Syg) 50 ML SYRINGE IVP PRN (18:02)
[2018-02-03] MEDS ORDERED: D5% in Water 1,000 ML IVC PRN (18:02)
[2018-02-03] MEDS ORDERED: Dextrose Gel 15 GM/37.5 ML TUBE PO PRN ×2 (18:02)
[2018-02-03] MEDS: *HR* OxyCODONE/APAP 5/325 TABLET PO PRN (19:41)
[2018-02-03] MEDS: Insulin LISPRO 300 UNITS/3 ML VIAL SQ SCH (21:00)
[2018-02-03] MEDS: Artificial Tears SOLN 15 ML BOTTLE BOTH EYES SCH (21:06)
[2018-02-03] MEDS: *HR* LORazepam 0.5 MG TABLET PO SCH (21:06)
[2018-02-03] MEDS: *HR* Acetylcysteine 20% 600 MG/3 ML ORAL SYRINGE PO SCH (21:09)
[2018-02-04 00:47] LABS: Hematocrit 31.3 % (37.5-50.1); Hemoglobin 8.8 g/dL (12.9-16.9); Mean Corpuscular HGB Conc 28.1 g/dL (31.6-35.5); Mean Corpuscular Hemoglobin 18.1 pg (28.0-33.3); Mean Corpuscular Volume 64.5 fL (83.0-100.0); Mean Platelet Volume 10.6 fL (9.4-12.4); Platelet Count 234 K/mcL (140-400); Red Blood Count 4.85 M/mcL (4.19-5.50); Red Cell Distribution Width 21.5 % (11.5-14.5)
[2018-02-04 00:52] LABS: INR 2.4; Prothrombin Time 26.5 Seconds (9.4-12.1)
[2018-02-04 01:05] LABS: Calcium 8.5 mg/dL (8.6-10.3); Chol/HDL Ratio 2.2 (0-4.9); Magnesium 1.9 mg/dL (1.6-2.6); Potassium 3.9 mEq/L (3.5-5.1)
[2018-02-04 06:52] LABS: Estimated Average Glucose 171 mg/dl; Hemoglobin A1C 7.6 %
--- NOTE | 2018-02-04 07:56 | Electrocardiograph Report ---
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
--- NOTE | 2018-02-04 08:04 | Electrocardiograph Report ---
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
--- NOTE | 2018-02-04 08:41 | Internal Med Progress Note ---
<Christian Jacobs - Last Filed: 02/04/18 18:35> Hospitalist Progress Note - Encounter Date of Encounter: 02/04/18 Time of Encounter: 09:00 - Subjective Interval History: Patient seen and examined at bedside. Currently without complaints. Chest pain mostly resolved, though still experiences intermittent tightness. Still has a cough and admits that he is somewhat SOB however his SpO2 is 99 on his home O2 requirement of 3L. Lung exam remains clear, no crackles or wheezes. Pitting edema still +2 pretibial. Patients C was put on hold due to INR of 2.5, plan for tomorrow, Heparin restarted until then. - Exam Vitals: Temp Pulse Resp BP Pulse Ox 98.5 F 93 16 126/78 99 02/04/18 06:32 02/04/18 06:32 02/04/18 06:32 02/04/18 06:32 02/04/18 06:32 Exam: General: A&O x 3, NAD Head: normocephalic Eyes: horizontal nystagmus, bilateral anopsia noted Throat: mucus memranes dry, trachea midline CV: Regular Rate, irregularly irregular rythym, no murmurs Resp: Diminished breath sounds, course inspiratory stridor Abd: generalized tenderness, distended, no guarding or rigidity Extremities: Peripheral edema (+2 pretibial) - Assessment and Plan (1) Non-STEMI (non-ST elevated myocardial infarction) Current Visit: Yes Status: Acute Assessment and Plan: - Increasing troponins in setting of unstable angina with history of CAD - History of PA with multiple PCI (stent x 10) - Chest Pain since resolved - Heparin drip started in ED - Cardiology: [facility] planned but currently on hold (PT currently supratheraputic) Gentle hydration and mucomyst to prevent NIKI in context of systolic CHF - Trend Troponins, resart Heparin until [facility] tomorrow Code(s): I21.4 - Non-ST elevation (NSTEMI) myocardial infarction (2) CAD (coronary artery disease) Current Visit: Yes Status: Chronic Assessment and Plan: Known history of CAD - Chest Pain currently resolved, patient resting comfortably - Extensive history of PA with multiple previous interventions - Multiple risk factors including but not limited to HTN/HLD/T2DM - Last stress test 04/17/17: Severe perfusion defect of the anterior wall, apex, and inferior wall consistent with Infarction - EKG shows Atrial Flutter with non-specific ST and T changes present on prior studies, likely old PA - Cardiology consulted; [facility] moved to tomorrow d/t elevated INR (3) CHF (congestive heart failure) Current Visit: Yes Status: Chronic Assessment and Plan: Known history of CHF - last echo 10/13/17; LVEF 35% - Generalized anasarca on exam; CXR shows pulmonary edema - Concern for acute exacerbation - BNP 401 on admission - Mild hydration; diurese as tolerated by kidneys (4) Anasarca Current Visit: Yes Status: Chronic Assessment and Plan: Generalized Anasarca - likely secondary to poorly controlled CHF - In setting of elevated BNP cannot r/o acute decompensation - No Paroxysmal Nocturnal Dyspnea, no Orthopnea - CXR shows pulmonary edema with trace effusions and cardiomegaly - Will continue to monitor for changes (5) CKD (chronic kidney disease), stage III Current Visit: No Status: Chronic Assessment and Plan: Creatinine at baseline since admission, will continue to follow Will diurese slowly as tolerated by kidneys Avoid nephrotoxins, renally dose medication Code(s): N18.3 - Chronic kidney disease, stage 3 (moderate) (6) Hypertension Current Visit: No Status: Chronic Assessment and Plan: BP stable since admission Continue home meds Monitor (7) COPD (chronic obstructive pulmonary disease) Current Visit: Yes Status: Chronic Assessment and Plan: Continue O2 at home oxygen requirements Maintain SpO2 above 88% (8) DM type 2 (diabetes mellitus, type 2) Current Visit: Yes Status: Chronic Assessment and Plan: SSI and accuchecks - Time Spent with Patient Total time spent is greater than 50% in coordination of care (as documented) at patient's floor/unit and/or counseling patient: Internal Medicine: Result - Labs CBC & Chem 7: 02/04/18 17:03 02/04/18 00:10 Labs: Short CBC 02/04/18 Range/Units 00:10 WBC 9.5 (4.3-11.1) K/mcL Hgb 8.8 L (12.9-16.9) g/dL Hct 31.3 L (37.5-50.1) % Plt Count 234 (140-400) K/mcL BMP 02/04/18 00:10 Sodium 136 Potassium 3.9 Chloride 106 Carbon Dioxide 21 L BUN 25 H Creatinine 1.49 H Glucose 123 H Calcium 8.5 L Cardiac Enzymes 02/04/18 Range/Units 00:10 Troponin I 0.22 H* (< 0.04) ng/mL - ABG Interpretation ABG results: PT/INR, D-dimer PT 26.5 Seconds (9.4-12.1) H 02/04/18 00:10 - VTE Reasons for not Prescribing Prophylaxis: Not indicated-Anticoagulated or INR therapeutic Consult Discharge Plan - Plan Referrals: NONE,PCP [Primary Care Provider] - <Gregorio Nick - Last Filed: 02/04/18 19:28> Hospitalist Progress Note - Encounter Date of Encounter: 02/04/18 - Exam Vitals: Temp Pulse Resp BP Pulse Ox 98.3 F 94 17 133/84 100 02/04/18 19:07 02/04/18 19:07 02/04/18 19:07 02/04/18 19:07 02/04/18 19:07 - Assessment and Plan (1) Non-STEMI (non-ST elevated myocardial infarction) Current Visit: Yes Status: Acute Assessment and Plan: Continues to have some CP and SOB. (2) CAD (coronary artery disease) Current Visit: Yes Status: Chronic (3) CKD (chronic kidney disease), stage III Current Visit: No Status: Chronic (4) COPD (chronic obstructive pulmonary disease) Current Visit: Yes Status: Chronic (5) Hypertension Current Visit: No Status: Chronic (6) DM type 2 (diabetes mellitus, type 2) Current Visit: Yes Status: Chronic (7) CHF (congestive heart failure) Current Visit: Yes Status: Chronic (8) Anasarca Current Visit: Yes Status: Chronic - Time Spent with Patient Total time spent is greater than 50% in coordination of care (as documented) at patient's floor/unit and/or counseling patient: Internal Medicine: Result - Labs CBC & Chem 7: 02/04/18 17:03 02/04/18 00:10 Labs: Short CBC 02/04/18 02/04/18 Range/Units 00:10 17:03 WBC 9.5 8.7 (4.3-11.1) K/mcL Hgb 8.8 L 9.6 L (12.9-16.9) g/dL Hct 31.3 L 34.6 L (37.5-50.1) % Plt Count 234 243 (140-400) K/mcL BMP 02/04/18 00:10 Sodium 136 Potassium 3.9 Chloride 106 Carbon Dioxide 21 L BUN 25 H Creatinine 1.49 H Glucose 123 H Calcium 8.5 L Cardiac Enzymes 02/04/18 Range/Units 00:10 Troponin I 0.22 H* (< 0.04) ng/mL - ABG Interpretation ABG results: PT/INR, D-dimer PT 20.6 Seconds (9.4-12.1) H 02/04/18 17:03 - Attending Attestation The history, physical exam, and medical decision making was performed by the medical student either while I was physically present and actively involved or I personally re-performed the exam and medical decision making. I have verified the accuracy of the medical student's documentation with regards to the history, physical exam findings, and medical decision making on 02/04/18. Mr Curtis is currently admitted for acute NSTEMI. His INR is still elevated. He remains moderate to high risk due to potential for worsening clinical status. Mr Curtis is feeling OK but hungry. LHC to be tomorrow due to INR. No fever or chills. Still having some intermitted CP and dyspnea. Exam alert Comfortable at rest Mucus membranes dry Heart distant and not tachy No wheeze abd soft Edema present I/P 1. NSTEMI -LHC tomorrow 2. CAD Further diagnoses and plan as above. <Christian Jacobs M - Last Filed: 02/04/18 18:35> (2) CAD (coronary artery disease) Qualifiers: Coronary Disease-Associated Artery/Lesion type: [place] artery [place] vs. transplanted heart: [place] heart Associated angina: with unstable angina Qualified Code(s): I25.110 - Atherosclerotic heart disease of [place] coronary artery with unstable angina pectoris (3) CHF (congestive heart failure) Qualifiers: Heart failure type: systolic Heart failure chronicity: acute on chronic Qualified Code(s): I50.23 - Acute on chronic systolic (congestive) heart failure (6) Hypertension Qualifiers: Hypertension type: essential hypertension Qualified Code(s): I10 - Essential (primary) hypertension (7) COPD (chronic obstructive pulmonary disease) Qualifiers: COPD type: chronic bronchitis Chronic bronchitis type: simple Qualified Code (s): J41.0 - Simple chronic bronchitis (8) DM type 2 (diabetes mellitus, type 2) Qualifiers: Diabetes mellitus termite technician insulin use: without termite technician use Diabetes mellitus complication status: with kidney complications Diabetes mellitus complication detail: with chronic kidney disease Chronic kidney disease stage: stage 3 (moderate) Qualified Code(s): E11.22 - Type 2 diabetes mellitus with diabetic chronic kidney disease; N18.3 - Chronic kidney disease, stage 3 ( moderate) <Gregorio Nick - Last Filed: 02/04/18 19:28> (2) CAD (coronary artery disease) Qualifiers: Coronary Disease-Associated Artery/Lesion type: [place] artery [place] vs. transplanted heart: [place] heart Associated angina: with unstable angina Qualified Code(s): I25.110 - Atherosclerotic heart disease of [place] coronary artery with unstable angina pectoris (4) COPD (chronic obstructive pulmonary disease) Qualifiers: COPD type: chronic bronchitis Chronic bronchitis type: simple Qualified Code (s): J41.0 - Simple chronic bronchitis (5) Hypertension Qualifiers: Hypertension type: essential hypertension Qualified Code(s): I10 - Essential (primary) hypertension (6) DM type 2 (diabetes mellitus, type 2) Qualifiers: Diabetes mellitus group home insulin use: without termite technician use Diabetes mellitus complication status: with kidney complications Diabetes mellitus complication detail: with chronic kidney disease Chronic kidney disease stage: stage 3 (moderate) Qualified Code(s): E11.22 - Type 2 diabetes mellitus with diabetic chronic kidney disease; N18.3 - Chronic kidney disease, stage 3 ( moderate) (7) CHF (congestive heart failure) Qualifiers: Heart failure type: systolic Heart failure chronicity: acute on chronic Qualified Code(s): I50.23 - Acute on chronic systolic (congestive) heart failure
[2018-02-04] MEDS: Insulin LISPRO 300 UNITS/3 ML VIAL SQ SCH ×4 (10:15→20:10)
[2018-02-04 11:21] LABS: Prothrombin Time 22.4 Seconds (9.4-12.1)
[2018-02-04] MEDS: *HR* Acetylcysteine 20% 600 MG/3 ML ORAL SYRINGE PO SCH ×2 (11:21→20:09)
[2018-02-04] MEDS: Artificial Tears SOLN 15 ML BOTTLE BOTH EYES SCH ×2 (11:21→20:09)
[2018-02-04] MEDS: Aspirin Enteric Coated 81 MG Tablet PO SCH (11:21)
[2018-02-04] MEDS: Isosorbide MONOnitrate (24 HR) 60 MG TAB.ER.24H PO SCH (11:23)
--- NOTE | 2018-02-04 14:42 | Cardiology Progress Note ---
Date of Encounter: 02/04/18 Time of Encounter: 14:40 Assessment and Plan Discussion w patient/family: The assessment and plan as outlined above was discussed with the patient and/or family members who expressed understanding and agreement. All questions were answered. Thank you for involving us in the care of your patient. Please call with any questions. 1)NSTEMI- [facility] recommended. R/B/A was discussed. Patient agrees to proceed. LHC when INR 1.8 or less. (2) Systolic CHF with reduced left ventricular function, NYHA class 2 Current Visit: Yes Status: Acute Acute on chronic CHFrEF TTE completed 10/13/17LVEF 35%. Mildly dilated left ventricle. Segmental left ventricular systolic dysfunction. Indeterminate diastolic function. Normal right ventricular structure and function. Mild aortic regurgitation. Mild aortic stenosis. No evidence of pulmonary hypertension. A device lead was visualized in the right atrium and right ventricle. Start IV lasix. CHF education. Continue low sodium diet. Daily weights and strict I&O. (3) CAD (coronary artery disease) Current Visit: Yes Status: Chronic NSTEMI - A/R/B of C discussed with patient. Continue medical management. Asa , statin, and bb. No heparin gtt due to therapeutic INR. Qualifiers: Coronary Disease-Associated Artery/Lesion type: [place] artery [place] vs. transplanted heart: [place] heart Associated angina: with unstable angina Qualified Code(s): I25.110 - Atherosclerotic heart disease of [place] coronary artery with unstable angina pectoris Subjective Principal diagnosis: NSTEMI Interval history: Patient resting quietly in bed. Currently pain free. C/o chest pain this morning lasting for an hour. States that he didn't tell anyone. C/o weight gain and BLE edema starting 2 mo ago. Objective Vital Signs Temp Pulse Resp BP Pulse Ox 02/04/18 10:28 97.8 F 96 16 122/72 96 02/04/18 06:32 98.5 F 93 16 126/78 99 02/04/18 02:43 97.6 F 95 18 128/87 97 02/03/18 23:06 97.9 F 89 17 111/70 100 02/03/18 18:55 97.6 F 91 18 131/85 95 02/03/18 15:17 97.5 F L 81 15 119/75 95 Intake and Output 02/03/18 02/04/18 02/04/18 23:59 07:59 15:59 Intake Total 340 / 340 Balance 340 / 340 Intake: IV Fluids 200 / 200 Oral 140 / 140 Other: Meal Dinner NPO Percent of Meal Consumed 100% Stool Size Moderate Stool Consistency loose # Voids 1 # Bowel Movements 1 1 Weight 118.5 kg Blood Glucose* 153 133 129 Patient Weight 02/04/18 23:59 Weight 118.5 kg General: Conversant, No Apparent Distress HEENT: Atraumatic, Normocephaly, Mucus Membranes Moist Neck: No JVD, Normal carotid pulses Cardiac: Reg Rate and Rhythm, Normal S1 and S2, No Murmur Lungs: Normal Breath Sounds, No Wheeze, Rales, Rhonchi Neuro: Alert and responsive, No focal deficits noted Abdomen: Soft, Non-Tender Skin: No rashes noted on visualized skin Musculoskeletal: No Chest Wall Tenderness Extremities: No Clubbing, No Cyanosis, Normal Pulses, Other (3+ pitting BLE) Results 02/04/18 00:10 02/04/18 00:10 Lab Results 02/04/18 02/04/18 02/04/18 00:10 00:10 00:10 WBC 9.5 Hgb 8.8 L Hct 31.3 L Plt Count 234 INR Sodium 136 Potassium 3.9 Chloride 106 Carbon Dioxide 21 L BUN 25 H Creatinine 1.49 H Glucose 123 H Calcium 8.5 L Magnesium 1.9 Troponin I 0.22 H* 02/04/18 02/04/18 00:10 10:44 WBC Hgb Hct Plt Count INR 2.4 2.0 Sodium Potassium Chloride Carbon Dioxide BUN Creatinine Glucose Calcium Magnesium Troponin I - Imaging and Cardiology Echo: report reviewed - EKG Interpretation EKG results cardiology: personally reviewed - VTE Reasons for not Prescribing Prophylaxis: Not indicated-Anticoagulated or INR therapeutic Consult Discharge Plan - Plan Referrals: NONE,PCP [Primary Care Provider] -
[2018-02-04 16:23] LABS: INR 1.9; Prothrombin Time 21.3 Seconds (9.4-12.1)
[2018-02-04] MEDS ORDERED: *HR* Heparin 5,000 UNIT/ML VIAL IVP PRN ×2 (16:36)
[2018-02-04] MEDS ORDERED: *HR* Heparin 5,000 UNIT/ML VIAL IVP ONE (16:36)
[2018-02-04 17:13] LABS: Hematocrit 34.6 % (37.5-50.1); Hemoglobin 9.6 g/dL (12.9-16.9); Mean Corpuscular HGB Conc 27.7 g/dL (31.6-35.5); Mean Platelet Volume 9.9 fL (9.4-12.4); Platelet Count 243 K/mcL (140-400); Red Blood Count 5.32 M/mcL (4.19-5.50); Red Cell Distribution Width 22.4 % (11.5-14.5)
[2018-02-04 17:20] LABS: Heparin anti-factor XA UFH 0.09 IU/mL (0.30-0.70); INR 1.8; Prothrombin Time 20.6 Seconds (9.4-12.1)
[2018-02-04] MEDS: Heparin 25,000 UNIT/500 ML D5W 25,000 UNIT/500 ML BAG IVC SCH (17:28)
[2018-02-04] MEDS ORDERED: 0.9 % Sodium Chloride 1,000 ML IVC SCH (19:30)
[2018-02-04] MEDS: *HR* LORazepam 0.5 MG TABLET PO SCH (20:09)
[2018-02-04] MEDS: Levalbuterol Neb 1.25 MG/3 ML IH SCH (22:59)
[2018-02-05] MEDS: Levalbuterol Neb 1.25 MG/3 ML IH SCH ×4 (04:00→22:32)
[2018-02-05 06:15] LABS: Red Cell Distribution Width 22.1 % (11.5-14.5)
[2018-02-05 06:17] LABS: Basophils # 0.1 K/mcL (0.0-0.2); Basophils % 0.6 %; Eosinophils # 0.1 K/mcL (0.0-0.6); Eosinophils % 1.4 %; Hematocrit 31.5 % (37.5-50.1); Hemoglobin 8.6 g/dL (12.9-16.9); Immature Granulocytes % 0.4 % (0-4); Lymphocytes # 2.1 K/mcL (0.6-4.6); Lymphocytes % 23.4 %; Mean Corpuscular HGB Conc 27.3 g/dL (31.6-35.5); Mean Corpuscular Hemoglobin 17.5 pg (28.0-33.3); Monocytes % 11.5 %; Neutrophils # 5.7 K/mcL (1.6-8.9); Nucleated Red Blood Cells 0.3 /100 WBC (0); Platelet Count 236 K/mcL (140-400); Red Blood Count 4.92 M/mcL (4.19-5.50); Segmented Neutrophils % 62.7 %
[2018-02-05 06:18] LABS: Monocytes # 1.1 K/mcL (0.0-1.3)
[2018-02-05 06:20] LABS: INR 1.9; Prothrombin Time 21.9 Seconds (9.4-12.1)
[2018-02-05 06:34] LABS: Calcium 8.4 mg/dL (8.6-10.3)
[2018-02-05 06:41] LABS: Anisocytosis 3+ (Not Present); Hypochromasia Present (Not Present); Microcytosis Present (Not Present); Platelet Estimate Normal (Normal); Poikilocytosis 1+ (Not Present); Polychromasia 1+ (Not Present)
[2018-02-05] MEDS: Furosemide 40 MG/4 ML VIAL IVP SCH ×2 (09:15→16:37)
[2018-02-05] MEDS: Artificial Tears SOLN 15 ML BOTTLE BOTH EYES SCH ×2 (09:16→20:38)
[2018-02-05] MEDS: Aspirin Enteric Coated 81 MG Tablet PO SCH (09:16)
[2018-02-05] MEDS: *HR* Acetylcysteine 20% 600 MG/3 ML ORAL SYRINGE PO SCH ×2 (09:16→20:38)
[2018-02-05] MEDS: Isosorbide MONOnitrate (24 HR) 60 MG TAB.ER.24H PO SCH (09:16)
[2018-02-05] MEDS: Insulin LISPRO 300 UNITS/3 ML VIAL SQ SCH ×4 (09:17→20:40)
--- NOTE | 2018-02-05 09:44 | Internal Med Progress Note ---
<Christian Jacobs - Last Filed: 02/05/18 16:31> Hospitalist Progress Note - Encounter Date of Encounter: 02/05/18 Time of Encounter: 08:00 - Subjective Interval History: Patient seen and examined at bedside. Patient remains SOB, with increasing oxygen demand overnight, 3L at home now up to 5L. Admits to a persistent dry cough, present prior to admission. Denies fever, chills, nausea, vomitting. Also states that overnight he had a recurrence of his chest pain, though he admits it was mild and did not cause him significant discomfort. He continues to be fluid overloaded, states he has not urinated since yesterday and his peripheral edema is still causing him some discomfort. Denies any other complaints or concerns at this time. Wheezes present on exam today. Afebrile. INR 1.9 today, LHC on hold until under 1.8. Two units vitamin K given, along with 40 lasix. INR under 1.8 this afternoon however cardiology would like to postpone until tomorrow. Patient will receive diet, then NPO at midnight. - Exam Vitals: Temp Pulse Resp BP Pulse Ox 98.0 F 95 15 126/83 100 02/05/18 07:23 02/05/18 07:23 02/05/18 07:23 02/05/18 07:23 02/05/18 07:23 Exam: General: A&O x 3, NAD Head: normocephalic Eyes: horizontal nystagmus, bilateral anopsia noted Throat: mucus memranes dry, trachea midline CV: Regular Rate, irregularly irregular rythym, no murmurs Resp: Diminished breath sounds, course inspiratory stridor, Wheezes present in all lung malhotra Abd: generalized tenderness, distended, no guarding or rigidity Extremities: Peripheral edema (+2 pretibial) - Assessment and Plan (1) Non-STEMI (non-ST elevated myocardial infarction) Current Visit: Yes Status: Acute Assessment and Plan: Increasing troponins in setting of unstable angina with history of CAD - History of [place] with multiple PCI (stent x 10) - Chest Pain intermittent during admission - Currently on Heparin gtt - Vitamin K given for INR 1.9 in anticipation of LHC - Cardiology consulted, recs as follows -LHC when INR 1.8 or less, likely tomorrow -DNR status changed to full code per patient for the day of the LHC only -Gentle hydration and mucomyst to prevent NIKI in context of systolic CHF -ASA, Statin, BB -Will need follow-up with Cardio outpatient for a defibrillator Plan: - Patient can receive a diet today, LHC on hold for tomorrow - PT/INR with AM labs prior to procedure - Continue Heparin gtt for now, will hold prior to LHC Code(s): I21.4 - Non-ST elevation (NSTEMI) myocardial infarction (2) CAD (coronary artery disease) Current Visit: Yes Status: Chronic Assessment and Plan: Known history of CAD - Multiple risk factors including HTN/HLD/DM - Multiple prior KY's (Stent x 10) - Last Stress test 04/17/17: Severe perfusion defects consistent with infarction history - Chest pain intermittent during admission - EKG shows Atrial Flutter with non-specific ST and T changes present on prior studies, likely old [place] - Cardiology consulted, appreciate recs. Plan: - LHC tomorrow pending INR 1.8 or less - Continue heparin gtt until ready for [facility] - ASA, Statin, BB for risk reduction (3) CHF (congestive heart failure) Current Visit: Yes Status: Chronic Assessment and Plan: Known history of CHF - TTE 10/13/17; LVEF 35%. Mildly dilated left ventricle with systolic dysfunction , aortic stenosis and regurgitation - Generalized anasarca on exam; CXR shows pulmonary edema/cardiomegaly - Concern for acute exacerbation d/t noncompliance of fluid restriction and diuretic - BNP 401 on admission Plan: - Gentle hydration, fluid restriction, cardiac diet (npo @ midnight) - Recommend CHF education d/t poor medical compliance - IV lasix ordered, continue home meds - Continue daily weights and strict I&O - BLE leg wraps for pitting edema (4) Anasarca Current Visit: Yes Status: Chronic Assessment and Plan: Generalized Anasarca - likely secondary to poorly controlled CHF - No history/evidence of liver failure - Pt Does have h/o Renal Failure, though currently SCr remains at or below baseline - No Paroxysmal Nocturnal Dyspnea, no Orthopnea - CXR shows pulmonary edema with trace effusions and cardiomegaly - BNP 401 on admission with report of decreased urine output Plan: - IV lasix ordered - Low Na and High Protein diet encouraged - Continue with Fluid restriction - BLE wraps for peripheral edema (5) CKD (chronic kidney disease), stage III Current Visit: No Status: Chronic Assessment and Plan: Known history of CKD - Baseline Scr between 1.5-1.8, currently at 1.4 -Will diurese slowly with lasix and monitor Scr -Avoid nephrotoxins, renally dose medication Code(s): N18.3 - Chronic kidney disease, stage 3 (moderate) (6) Hypertension Current Visit: No Status: Chronic Assessment and Plan: BP stable since admission Continue home meds Monitor (7) COPD (chronic obstructive pulmonary disease) Current Visit: Yes Status: Chronic Assessment and Plan: Known history of COPD - Patient complaining of SOB since admission - Wheezes present on exam today in all lung malhotra - On 3L at home, currently requiring 4-5L Plan: - Maintain SpO2 above 88%, titrate back to 3L as tolerated - Duonebs PRN (8) DM type 2 (diabetes mellitus, type 2) Current Visit: Yes Status: Chronic Assessment and Plan: SSI and accuchecks - Time Spent with Patient Total time spent is greater than 50% in coordination of care (as documented) at patient's floor/unit and/or counseling patient: Internal Medicine: Result - Labs CBC & Chem 7: 02/05/18 05:56 02/05/18 05:56 Labs: Short CBC 02/04/18 02/05/18 Range/Units 17:03 05:56 WBC 8.7 9.1 (4.3-11.1) K/mcL Hgb 9.6 L 8.6 L (12.9-16.9) g/dL Hct 34.6 L 31.5 L (37.5-50.1) % Plt Count 243 236 (140-400) K/mcL Neutrophils # 5.7 (1.6-8.9) K/mcL BMP 02/05/18 05:56 Sodium 134 L Potassium 4.0 Chloride 110 H Carbon Dioxide 22 L BUN 24 H Creatinine 1.46 H Glucose 129 H Calcium 8.4 L Cardiac Enzymes 02/04/18 Range/Units 23:23 Troponin I 0.13 H* (< 0.04) ng/mL - ABG Interpretation ABG results: PT/INR, D-dimer PT 21.9 Seconds (9.4-12.1) H 02/05/18 05:56 - VTE Reasons for not Prescribing Prophylaxis: Not indicated-Anticoagulated or INR therapeutic Consult Discharge Plan - Plan Referrals: NONE,PCP [Primary Care Provider] - <Gregorio Nick - Last Filed: 02/05/18 18:35> Hospitalist Progress Note - Encounter Date of Encounter: 02/05/18 - Exam Vitals: Temp Pulse Resp BP Pulse Ox 98.1 F 77 16 107/57 99 02/05/18 15:44 02/05/18 15:44 02/05/18 16:05 02/05/18 15:44 02/05/18 16:05 - Assessment and Plan (1) Non-STEMI (non-ST elevated myocardial infarction) Current Visit: Yes Status: Acute (2) CAD (coronary artery disease) Current Visit: Yes Status: Chronic (3) CKD (chronic kidney disease), stage III Current Visit: No Status: Chronic (4) COPD (chronic obstructive pulmonary disease) Current Visit: Yes Status: Chronic (5) Hypertension Current Visit: No Status: Chronic (6) DM type 2 (diabetes mellitus, type 2) Current Visit: Yes Status: Chronic (7) CHF (congestive heart failure) Current Visit: Yes Status: Chronic (8) Anasarca Current Visit: Yes Status: Chronic - Time Spent with Patient Total time spent is greater than 50% in coordination of care (as documented) at patient's floor/unit and/or counseling patient: Internal Medicine: Result - Labs CBC & Chem 7: 02/05/18 05:56 02/05/18 05:56 Labs: Short CBC 02/05/18 Range/Units 05:56 WBC 9.1 (4.3-11.1) K/mcL Hgb 8.6 L (12.9-16.9) g/dL Hct 31.5 L (37.5-50.1) % Plt Count 236 (140-400) K/mcL Neutrophils # 5.7 (1.6-8.9) K/mcL BMP 02/05/18 05:56 Sodium 134 L Potassium 4.0 Chloride 110 H Carbon Dioxide 22 L BUN 24 H Creatinine 1.46 H Glucose 129 H Calcium 8.4 L Cardiac Enzymes 02/04/18 Range/Units 23:23 Troponin I 0.13 H* (< 0.04) ng/mL - ABG Interpretation ABG results: PT/INR, D-dimer PT 21.7 Seconds (9.4-12.1) H 02/05/18 12:40 - Attending Attestation I examined this patient and my medical decision-making was reviewed with the Resident Physician on 02/05/18. I agree with the documented findings, disposition and treatment plan as described except to the extent set forth below. Mr Curtis is currently admitted for acute NSTEMI. He is awaiting cardiac cath. He remains moderate to high risk due to potential for worsening clinical status. Mr Curtis is doing OK. His cath was postponed again today. No fever or chills. INR 1.9 this AM. No GI issues. Cough OK. Exam alert Comfortable Mucus membranes dry Heart distant Lungs diminished with no wheeze Abd soft Edema present I/P 1. NSTEMI 2. CHF Further diagnoses and plan as above. <Christian Jacobs M - Last Filed: 02/05/18 16:31> (2) CAD (coronary artery disease) Qualifiers: Coronary Disease-Associated Artery/Lesion type: [place] artery [place] vs. transplanted heart: [place] heart Associated angina: with unstable angina Qualified Code(s): I25.110 - Atherosclerotic heart disease of [place] coronary artery with unstable angina pectoris (3) CHF (congestive heart failure) Qualifiers: Heart failure type: systolic Heart failure chronicity: acute on chronic Qualified Code(s): I50.23 - Acute on chronic systolic (congestive) heart failure (6) Hypertension Qualifiers: Hypertension type: essential hypertension Qualified Code(s): I10 - Essential (primary) hypertension (7) COPD (chronic obstructive pulmonary disease) Qualifiers: COPD type: chronic bronchitis Chronic bronchitis type: simple Qualified Code (s): J41.0 - Simple chronic bronchitis (8) DM type 2 (diabetes mellitus, type 2) Qualifiers: Diabetes mellitus shuttle hand insulin use: without shuttle hand use Diabetes mellitus complication status: with kidney complications Diabetes mellitus complication detail: with chronic kidney disease Chronic kidney disease stage: stage 3 (moderate) Qualified Code(s): E11.22 - Type 2 diabetes mellitus with diabetic chronic kidney disease; N18.3 - Chronic kidney disease, stage 3 ( moderate) <Gregorio Nick - Last Filed: 02/05/18 18:35> (2) CAD (coronary artery disease) Qualifiers: Coronary Disease-Associated Artery/Lesion type: [place] artery [place] vs. transplanted heart: [place] heart Associated angina: with unstable angina Qualified Code(s): I25.110 - Atherosclerotic heart disease of [place] coronary artery with unstable angina pectoris (4) COPD (chronic obstructive pulmonary disease) Qualifiers: COPD type: chronic bronchitis Chronic bronchitis type: simple Qualified Code (s): J41.0 - Simple chronic bronchitis (5) Hypertension Qualifiers: Hypertension type: essential hypertension Qualified Code(s): I10 - Essential (primary) hypertension (6) DM type 2 (diabetes mellitus, type 2) Qualifiers: Diabetes mellitus shuttle hand insulin use: without snf use Diabetes mellitus complication status: with kidney complications Diabetes mellitus complication detail: with chronic kidney disease Chronic kidney disease stage: stage 3 (moderate) Qualified Code(s): E11.22 - Type 2 diabetes mellitus with diabetic chronic kidney disease; N18.3 - Chronic kidney disease, stage 3 ( moderate) (7) CHF (congestive heart failure) Qualifiers: Heart failure type: systolic Heart failure chronicity: acute on chronic Qualified Code(s): I50.23 - Acute on chronic systolic (congestive) heart failure
--- NOTE | 2018-02-05 12:31 | Cardiology Progress Note ---
Date of Encounter: 02/05/18 Time of Encounter: 12:28 Assessment and Plan (1) Non-STEMI (non-ST elevated myocardial infarction) Current Visit: Yes Status: Acute )NSTEMI- CP in patient with H/O CAD and elevated troponin. LHC recommended. R/B/A was discussed. Patient agrees to proceed. LHC when INR 1.8 or less. On coumadin for history of PE recommend heparin for NSTEMI with INR less than 1.9. Noted that patient is DNRCCA, I discussed removing his DNR status for 24 hours after LHC and patient agrees. Asa statin, and bb. Cardiac rehab ordered. (2) CAD (coronary artery disease) Current Visit: Yes Status: Chronic NSTEMI - A/R/B of LHC discussed with patient. Continue medical management. Qualifiers: Coronary Disease-Associated Artery/Lesion type: [place] artery [place] vs. transplanted heart: [place] heart Associated angina: with unstable angina Qualified Code(s): I25.110 - Atherosclerotic heart disease of [place] coronary artery with unstable angina pectoris (3) CHF (congestive heart failure) Current Visit: Yes Status: Chronic Acute on chronic CHFrEF TTE completed 10/13/17LVEF 35%. Mildly dilated left ventricle. Segmental left ventricular systolic dysfunction. Indeterminate diastolic function. Normal right ventricular structure and function. Mild aortic regurgitation. Mild aortic stenosis. No evidence of pulmonary hypertension. A device lead was visualized in the right atrium and right ventricle. IV lasix started. Consider BLE leg wraps if needed. CHF education. Continue low sodium diet. Daily weights and strict I&O. Qualifiers: Heart failure type: systolic Heart failure chronicity: acute on chronic Qualified Code(s): I50.23 - Acute on chronic systolic (congestive) heart failure Discussion w patient/family: The assessment and plan as outlined above was discussed with the patient and/or family members who expressed understanding and agreement. All questions were answered. Thank you for involving us in the care of your patient. Please call with any questions. Subjective Principal diagnosis: NSTEMI Interval history: Patient resting quietly in bed. Currently pain free. States that he is tired of not being fed. C/o intermittent pain in his BLE. Objective Vital Signs, Last 4 Hours Temp Pulse Resp BP Pulse Ox 02/05/18 12:00 97.8 F 77 15 97/59 100 02/05/18 10:31 16 100 Results 02/05/18 05:56 02/05/18 05:56 Lab Results 02/04/18 02/04/18 02/04/18 15:53 17:03 17:03 WBC 8.7 Hgb 9.6 L Hct 34.6 L Plt Count 243 INR 1.9 1.8 Sodium Potassium Chloride Carbon Dioxide BUN Creatinine Glucose Calcium Troponin I 02/04/18 02/05/18 02/05/18 23:23 05:56 05:56 WBC 9.1 Hgb 8.6 L Hct 31.5 L Plt Count 236 INR 1.9 Sodium Potassium Chloride Carbon Dioxide BUN Creatinine Glucose Calcium Troponin I 0.13 H* 02/05/18 05:56 WBC Hgb Hct Plt Count INR Sodium 134 L Potassium 4.0 Chloride 110 H Carbon Dioxide 22 L BUN 24 H Creatinine 1.46 H Glucose 129 H Calcium 8.4 L Troponin I - VTE Reasons for not Prescribing Prophylaxis: Not indicated-Anticoagulated or INR therapeutic Consult Discharge Plan - Plan Referrals: NONE,PCP [Primary Care Provider] -
[2018-02-05 13:01] LABS: INR 1.9; Prothrombin Time 21.7 Seconds (9.4-12.1)
[2018-02-05] MEDS: Heparin 25,000 UNIT/500 ML D5W 25,000 UNIT/500 ML BAG IVC SCH (16:33)
[2018-02-05] MEDS: *HR* LORazepam 0.5 MG TABLET PO SCH (20:38)
[2018-02-05] MEDS: *HR* OxyCODONE/APAP 5/325 TABLET PO PRN (23:55)
[2018-02-06] MEDS: Levalbuterol Neb 1.25 MG/3 ML IH SCH ×2 (03:32→10:46)
[2018-02-06 04:10] LABS: Basophils % 0.3 %; Lymphocytes % 21.4 %; Nucleated Red Blood Cells 0.2 /100 WBC (0)
[2018-02-06 04:11] LABS: Eosinophils # 0.2 K/mcL (0.0-0.6); Hematocrit 30.5 % (37.5-50.1); Hemoglobin 8.6 g/dL (12.9-16.9); Immature Granulocytes % 0.6 % (0-4); Lymphocytes # 1.9 K/mcL (0.6-4.6); Mean Corpuscular HGB Conc 28.2 g/dL (31.6-35.5); Mean Corpuscular Hemoglobin 18.2 pg (28.0-33.3); Mean Corpuscular Volume 64.5 fL (83.0-100.0); Mean Platelet Volume 10.4 fL (9.4-12.4); Monocytes % 11.5 %; Platelet Count 225 K/mcL (140-400); Red Blood Count 4.73 M/mcL (4.19-5.50); Red Cell Distribution Width 21.7 % (11.5-14.5); Segmented Neutrophils % 64.2 %
[2018-02-06 04:17] LABS: INR 1.8; Neutrophils # 5.7 K/mcL (1.6-8.9)
[2018-02-06 04:26] LABS: Calcium 8.4 mg/dL (8.6-10.3); Potassium 3.7 mEq/L (3.5-5.1)
[2018-02-06 04:47] LABS: Acanthocytes 1+ (Not Present); Anisocytosis 2+ (Not Present); Hypochromasia Present (Not Present)
[2018-02-06 04:48] LABS: Microcytosis Present (Not Present); Platelet Estimate Normal (Normal); Polychromasia 2+ (Not Present)
[2018-02-06] MEDS: Isosorbide MONOnitrate (24 HR) 60 MG TAB.ER.24H PO SCH (08:23)
[2018-02-06] MEDS: Insulin LISPRO 300 UNITS/3 ML VIAL SQ SCH ×4 (08:24→20:12)
[2018-02-06] MEDS: Aspirin Enteric Coated 81 MG Tablet PO SCH (08:24)
[2018-02-06] MEDS: Furosemide 40 MG/4 ML VIAL IVP SCH ×2 (08:24→16:57)
[2018-02-06] MEDS: Artificial Tears SOLN 15 ML BOTTLE BOTH EYES SCH ×2 (08:26→20:12)
[2018-02-06] MEDS: *HR* Acetylcysteine 20% 600 MG/3 ML ORAL SYRINGE PO SCH ×2 (08:26→20:09)
[2018-02-06] MEDS ORDERED: Heparin 1,000 UNITS/500 mL 500 ML ONE (09:33)
[2018-02-06] MEDS ORDERED: *HR* Heparin 10,000 UNIT/10 ML VIAL ONE (09:33)
[2018-02-06] MEDS ORDERED: ISOVUE-370 200 ML INFUS..BTL IV ONE (09:33)
[2018-02-06] MEDS ORDERED: 0.9 % Sodium Chloride 1,000 ML ONE ×2 (09:33→09:42)
--- NOTE | 2018-02-06 09:34 | Event Note ---
Date of Encounter: 02/06/18 Time of Encounter: 09:33 - Cardiology Event Note Mr. Curtis states that he developed recurrent chest pain this morning. Intermittent pain throughout stay. on imdur 120mg daily. H/o CO and multiple PCI. Troponin up to 0.39. INR is now 1.8. Hgb stable. Discussed with interventionalist, with recurrent chest pain we will go ahead and proceed with [facility]. Patient withdraws DNR status and agrees to be full code for 24 hours. R/B/ A was reviewed with patient. Telemetry review show atrial fibrillation with occasional atrial paced beats. AVg HR 80 bpm. Vital Signs Temp Pulse Resp BP Pulse Ox 02/06/18 07:33 97.9 F 90 15 111/69 97 02/06/18 03:25 97.7 F 87 18 112/73 100 02/05/18 19:27 97.5 F L 77 18 115/70 100 02/05/18 16:05 16 99 02/05/18 15:44 98.1 F 77 15 107/57 99 02/05/18 12:00 97.8 F 77 15 97/59 100 02/05/18 10:31 16 100 Intake and Output 02/05/18 02/06/18 02/06/18 23:59 07:59 15:59 Intake Total 425 / 425 193 / 193 Output Total 150 / 150 Balance 275 / 275 193 / 193 Intake: IV Fluids 185 / 185 193 / 193 Heparin 25,000 UNIT/500 ML D5W 185 / 185 193 / 193 25,000 unit In 500 ml @ 8.4 UNIT/KG/HR 19.908 mls/hr IVC . Q24H KANA Rx#:[id number] Oral 240 / 240 Output: Urine 150 / 150 Other: Meal Dinner Percent of Meal Consumed 100% Stool Size Small Stool Consistency soft formed Stool Characteristics Normal for Patient Stool Color Brown # Voids 1 1 # Bowel Movements 1 Weight 118.3 kg Blood Glucose* 138 149 Patient Weight 02/06/18 23:59 Weight 118.3 kg
[2018-02-06] MEDS ORDERED: Nitroglycerin 1,000 MCG/10 ML VIAL IV ONE (09:38)
[2018-02-06] MEDS ORDERED: *HR* Midazolam HCl 2 MG/2 ML VIAL ONE (10:05)
--- NOTE | 2018-02-06 10:12 | Internal Med Progress Note ---
<Christian Jacobs Shen - Last Filed: 02/06/18 17:39> Hospitalist Progress Note - Encounter Date of Encounter: 02/06/18 Time of Encounter: 08:30 - Subjective Interval History: Patient seen and examined at bedside. Patient lying flat on bed per order of cardiology. Patient reports back pain associated with this, no new complaints at this time. States his chest pain returned over night, intermittently, but is currently not bothering him. Patient denies SOB today, back down to 3L O2, but still complains of a dry cough and continues to have mild wheezes on exam. Cardiology spoke with patient and have agreed to proceed with [facility] today based on patients return of chest pain. Patient is agreeable to this plan and has agreed to hold DNR status for 24hrs. Of note, the patient has had very little urine output during his hospital stay and states the last time he removes fully voiding was several days ago. Will get bladder scan. INR 1.8 this morning. Vitals stable. - Exam Vitals: Temp Pulse Resp BP Pulse Ox 97.9 F 90 15 111/69 97 02/06/18 07:33 02/06/18 07:33 02/06/18 07:33 02/06/18 07:33 02/06/18 07:33 Exam: General: A&O x 3, NAD Head: normocephalic Eyes: horizontal nystagmus, bilateral anopsia noted Throat: mucus memranes dry, trachea midline CV: Regular Rate, irregularly irregular rythym, no murmurs Resp: Continues to have wheeze, no crackles noted Abd: generalized tenderness, distended, no guarding or rigidity Extremities: Peripheral edema (+2 pretibial) - Assessment and Plan (1) Non-STEMI (non-ST elevated myocardial infarction) Current Visit: Yes Status: Acute Assessment and Plan: Increasing troponins in setting of unstable angina with history of CAD - History of PA with multiple PCI (stent x 10) - Chest Pain intermittent during admission - Currently on Heparin gtt - Vitamin K given for INR 1.9 in anticipation of LHC - Cardiology consulted, recs as follows -LHC planned for today, NPO since midnight -DNR status changed to full code per patient for today only -Gentle hydration and mucomyst to prevent NIKI in context of systolic CHF -ASA, Statin, BB -Will need follow-up with Cardio outpatient for a defibrillator Plan: - [facility] 02/06/18 - PT/INR with AM labs prior to procedure - Continue Heparin gtt for now, will hold prior to [facility] Code(s): I21.4 - Non-ST elevation (NSTEMI) myocardial infarction (2) CAD (coronary artery disease) Current Visit: Yes Status: Chronic Assessment and Plan: Known history of CAD - Multiple risk factors including HTN/HLD/DM - Multiple prior PA's (Stent x 10) - Last Stress test 04/17/17: Severe perfusion defects consistent with infarction history - Chest pain intermittent during admission - EKG shows Atrial Flutter with non-specific ST and T changes present on prior studies, likely old PA - Cardiology consulted, appreciate recs. Plan: - [facility] planned 02/06/18 - Continue heparin gtt until ready for [facility] - ASA, Statin, BB for risk reduction (3) CHF (congestive heart failure) Current Visit: Yes Status: Chronic Assessment and Plan: Known history of CHF - TTE 10/13/17; LVEF 35%. Mildly dilated left ventricle with systolic dysfunction , aortic stenosis and regurgitation - Generalized anasarca on exam; CXR shows pulmonary edema/cardiomegaly - Concern for acute exacerbation d/t noncompliance of fluid restriction and diuretic - BNP 401 on admission Plan: - Gentle hydration, fluid restriction, cardiac diet (npo since midnight) - Recommend CHF education d/t poor medical compliance - IV lasix ordered, continue home meds - Continue daily weights and strict I&O - BLE leg wraps for pitting edema (4) Anasarca Current Visit: Yes Status: Chronic Assessment and Plan: Generalized Anasarca - likely secondary to poorly controlled CHF - No history/evidence of liver failure - Pt Does have h/o Renal Failure, though currently SCr remains at or below baseline - No Paroxysmal Nocturnal Dyspnea, no Orthopnea - CXR shows pulmonary edema with trace effusions and cardiomegaly - BNP 401 on admission with report of decreased urine output Plan: - IV lasix ordered - Low Na and High Protein diet encouraged - Continue with Fluid restriction - BLE wraps for peripheral edema (5) CKD (chronic kidney disease), stage III Current Visit: No Status: Chronic Assessment and Plan: Known history of CKD - Baseline Scr between 1.5-1.8, currently at 1.4 -Will diurese slowly with lasix and monitor Scr -Avoid nephrotoxins, renally dose medication Code(s): N18.3 - Chronic kidney disease, stage 3 (moderate) (6) Hypertension Current Visit: No Status: Chronic Assessment and Plan: BP stable since admission Continue home meds Monitor (7) COPD (chronic obstructive pulmonary disease) Current Visit: Yes Status: Chronic Assessment and Plan: Known history of COPD - Patient complaining of SOB since admission - Wheezes present on exam today in all lung malhotra - On 3L at home Plan: - Maintain SpO2 above 88%, titrate back to 3L as tolerated - Duonebs PRN (8) DM type 2 (diabetes mellitus, type 2) Current Visit: Yes Status: Chronic Assessment and Plan: SSI and accuchecks - Time Spent with Patient Total time spent is greater than 50% in coordination of care (as documented) at patient's floor/unit and/or counseling patient: Internal Medicine: Result - Labs CBC & Chem 7: 02/06/18 03:24 02/06/18 03:24 Labs: Short CBC 02/06/18 Range/Units 03:24 WBC 8.8 (4.3-11.1) K/mcL Hgb 8.6 L (12.9-16.9) g/dL Hct 30.5 L (37.5-50.1) % Plt Count 225 (140-400) K/mcL Neutrophils # 5.7 (1.6-8.9) K/mcL BMP 02/06/18 03:24 Sodium 137 Potassium 3.7 Chloride 105 Carbon Dioxide 24 BUN 26 H Creatinine 1.54 H Glucose 136 H Calcium 8.4 L - ABG Interpretation ABG results: PT/INR, D-dimer PT 20.0 Seconds (9.4-12.1) H 02/06/18 03:24 - VTE Reasons for not Prescribing Prophylaxis: Not indicated-Anticoagulated or INR therapeutic Consult Discharge Plan - Plan Referrals: NONE,PCP [Primary Care Provider] - <Gregorio Nick - Last Filed: 02/06/18 18:45> Hospitalist Progress Note - Encounter Date of Encounter: 02/06/18 - Exam Vitals: Temp Pulse Resp BP Pulse Ox 97.6 F 70 16 99/67 100 02/06/18 11:30 02/06/18 14:15 02/06/18 14:15 02/06/18 14:15 02/06/18 14:15 - Assessment and Plan (1) Non-STEMI (non-ST elevated myocardial infarction) Current Visit: Yes Status: Acute (2) CAD (coronary artery disease) Current Visit: Yes Status: Chronic (3) CKD (chronic kidney disease), stage III Current Visit: No Status: Chronic (4) COPD (chronic obstructive pulmonary disease) Current Visit: Yes Status: Chronic (5) Hypertension Current Visit: No Status: Chronic (6) DM type 2 (diabetes mellitus, type 2) Current Visit: Yes Status: Chronic (7) CHF (congestive heart failure) Current Visit: Yes Status: Chronic (8) Anasarca Current Visit: Yes Status: Chronic - Time Spent with Patient Total time spent is greater than 50% in coordination of care (as documented) at patient's floor/unit and/or counseling patient: Internal Medicine: Result - Labs CBC & Chem 7: 02/06/18 03:24 02/06/18 03:24 Labs: Short CBC 02/06/18 Range/Units 03:24 WBC 8.8 (4.3-11.1) K/mcL Hgb 8.6 L (12.9-16.9) g/dL Hct 30.5 L (37.5-50.1) % Plt Count 225 (140-400) K/mcL Neutrophils # 5.7 (1.6-8.9) K/mcL BMP 02/06/18 03:24 Sodium 137 Potassium 3.7 Chloride 105 Carbon Dioxide 24 BUN 26 H Creatinine 1.54 H Glucose 136 H Calcium 8.4 L - ABG Interpretation ABG results: PT/INR, D-dimer PT 20.0 Seconds (9.4-12.1) H 02/06/18 03:24 - Attending Attestation The history, physical exam, and medical decision making was performed by the medical student either while I was physically present and actively involved or I personally re-performed the exam and medical decision making. I have verified the accuracy of the medical student's documentation with regards to the history, physical exam findings, and medical decision making on 02/06/18. Mr Curtis is currently admitted for acute NSTEMI. He is to have cardiac cath today. He remains moderate to high risk due to potential for worsening clinical status. Mr Curtis is still volume overloaded. No fever or chills. Continued to have some chest pain today. Still dyspneic with movement. Exam Alert Comfortable sitting up at edge of bed. Mucus membranes dry Heart distant and not tachy Lungs with scattered rhonchi Abd soft Edema present No rash I/P 1. NSTEMI 2. CHF Further diagnoses and plan as above. Continue diuresis. <Christian Jacobs M - Last Filed: 02/06/18 17:39> (2) CAD (coronary artery disease) Qualifiers: Coronary Disease-Associated Artery/Lesion type: [place] artery [place] vs. transplanted heart: [place] heart Associated angina: with unstable angina Qualified Code(s): I25.110 - Atherosclerotic heart disease of [place] coronary artery with unstable angina pectoris (3) CHF (congestive heart failure) Qualifiers: Heart failure type: systolic Heart failure chronicity: acute on chronic Qualified Code(s): I50.23 - Acute on chronic systolic (congestive) heart failure (6) Hypertension Qualifiers: Hypertension type: essential hypertension Qualified Code(s): I10 - Essential (primary) hypertension (7) COPD (chronic obstructive pulmonary disease) Qualifiers: COPD type: chronic bronchitis Chronic bronchitis type: simple Qualified Code (s): J41.0 - Simple chronic bronchitis (8) DM type 2 (diabetes mellitus, type 2) Qualifiers: Diabetes mellitus jail insulin use: without jail use Diabetes mellitus complication status: with kidney complications Diabetes mellitus complication detail: with chronic kidney disease Chronic kidney disease stage: stage 3 (moderate) Qualified Code(s): E11.22 - Type 2 diabetes mellitus with diabetic chronic kidney disease; N18.3 - Chronic kidney disease, stage 3 ( moderate) <Gregorio Nick A - Last Filed: 02/06/18 18:45> (2) CAD (coronary artery disease) Qualifiers: Coronary Disease-Associated Artery/Lesion type: [place] artery [place] vs. transplanted heart: [place] heart Associated angina: with unstable angina Qualified Code(s): I25.110 - Atherosclerotic heart disease of [place] coronary artery with unstable angina pectoris (4) COPD (chronic obstructive pulmonary disease) Qualifiers: COPD type: chronic bronchitis Chronic bronchitis type: simple Qualified Code (s): J41.0 - Simple chronic bronchitis (5) Hypertension Qualifiers: Hypertension type: essential hypertension Qualified Code(s): I10 - Essential (primary) hypertension (6) DM type 2 (diabetes mellitus, type 2) Qualifiers: Diabetes mellitus jail insulin use: without jail use Diabetes mellitus complication status: with kidney complications Diabetes mellitus complication detail: with chronic kidney disease Chronic kidney disease stage: stage 3 (moderate) Qualified Code(s): E11.22 - Type 2 diabetes mellitus with diabetic chronic kidney disease; N18.3 - Chronic kidney disease, stage 3 ( moderate) (7) CHF (congestive heart failure) Qualifiers: Heart failure type: systolic Heart failure chronicity: acute on chronic Qualified Code(s): I50.23 - Acute on chronic systolic (congestive) heart failure
--- NOTE | 2018-02-06 10:14 | Pre-Sedation Evaluation ---
Pre-sedation evaluation - Pre-sedation checklist Date of procedure: 02/03/18 Procedure: [facility] Recent Vitals: Last Vital Signs Temp 97.9 F 02/06/18 07:33 Pulse 90 02/06/18 07:33 Resp 15 02/06/18 07:33 BP 111/69 02/06/18 07:33 Pulse Ox 97 02/06/18 07:33 H&P (including ROS) documented in medical record: Yes Previous reaction to sedatives/anesthetics: No Dietary Status: NPO 6 hours prior to procedure Airway Assessment: Patient can open mouth completely, TMJ function normal Dentition: No loose teeth or bridges Possible difficult airway: No ASA Classification *see protocol: CLASS IV-Severe systemic disease/constant threat to pt's life Plan of Care: Pt appropriate candidate for procedure/moderate/conscious sedation , Risks/benefits of procedure/sedation discussed w/ patient/family, If not NPO; Risk of intake outweiged by necessity to perform procedure Cardiac Registry (Cardio Only) - Functional Capacity Functional Capacity: >=4 METS with symptoms - Clincal Frailty Scale Clinical Frailty Scale: Vulnerable (INR 1.8, discussed slightly higher bleeding risk, elects to proceed understanding and accepting slightly higher risk)
[2018-02-06] MEDS ORDERED: Verapamil 5 MG/2 ML VIAL ONE (10:32)
[2018-02-06] MEDS ORDERED: Levalbuterol Neb 1.25 MG/3 ML IH PRN (10:54)
--- NOTE | 2018-02-06 11:31 | Event Note ---
Date of Encounter: 02/06/18 Time of Encounter: 11:29 - Cardiology Event Note Discussed with Dr. Lopez. [facility] completed. Stable CAD compared to prior [facility]. H/o Prior PCI and known severe CAD in OM that is small vessel. . [facility] report pending. Medical management recommended. Add Raneaxa. Continue IV diuresis. RN at bedside reports patient has good urine out-pt. I&O does not reflect this. Kidney function within baseline. Recommend strict I&O. Continue diuresis until near euvolemia. Continues to have fluid overload. No further cardiac testing. Call with questions. Out-pt f/u with cardiology.
--- NOTE | 2018-02-06 11:36 | Invasive Diagnostic Lab Proc ---
Name: Henri Curtis Date of Study: 02/06/2018 Date: 1945 Ht: 68.1in Medical Record#: [id number] Age: 72 Wt: 260.15lb Gender: Male BSA: 2.29 Order #: [id number] BMI: 39.43 Physicians Procedure Physician: Etienne Lopez DO Referring MD: Referring MD: Staff Name Position Time In Chetan Gonzales RN Inlayer 09:59 AM Marvin Viera RN Monitor 09:59 AM Augusta Petit RT (R) Scrub 09:59 AM Ariadna Prater RT RT (R) 10:00 AM Kassidy Rich RT (R) RT(R) 10:00 AM Procedures Performed Procedure L HRT ARTERY/VENTRICLE ANGIO Pre-Procedure Checklist Informed consent is complete signed and on chart. H&P is on chart. ID band is on and ID verified with patient. Patient NPO for procedure The procedure was described for the patient and questions were answered. ECG is on chart. Rhythm: NSR Plan of Care Patient will tolerate the procedure without complications. Adequate level of comfort will be maintained. Hemodynamics will remain stable Patient will recover from procedure without complications. Respiratory function will be maintained. Cardiac rhythm will remain stable. Patient temperature will be maintained. Patient and/or family have verbalized understanding of the procedure. Patient Education Intravenous Access Time IV Size Location DC'd Fluid/Drip Rate Units RN 18g 1 /" Patent On Arrival Rt Antecubital Chetan Gonzales RN Allergies Nka - No Known Allergies NKDA No Known Allergies Vital Signs Time BP (mmHg) HR (bpm) O2 Sat. RR (bpm) LOC 10:00 AM / % 5 = Fully awake and oriented or at pre-proc level 10:00 AM / % 5 = Fully awake and oriented or at pre-proc level 10:06 AM / % 4 = Oriented but drowsy 10:21 AM / % 4 = Oriented but drowsy 10:04 AM 125 / 78 81 95 % 10 10:09 AM 141 / 87 65 72 % 21 10:13 AM 141 / 86 75 100 % 22 10:18 AM 130 / 84 69 100 % 18 10:23 AM 118 / 78 68 100 % 20 10:29 AM 110 / 72 69 100 % 28 10:34 AM 139 / 71 69 100 % 31 10:38 AM 123 / 68 80 100 % 41 10:43 AM 121 / 66 70 100 % 19 10:48 AM 113 / 54 71 100 % 18 10:53 AM 127 / 72 71 100 % 17 10:58 AM 113 / 70 72 100 % 23 11:04 AM 133 / 97 72 100 % 25 11:08 AM 133 / 73 70 100 % 15 Procedural Medications Time Medication Dose Units Method Given By 10:06 AM Oxygen 6 L/min Oxy Mask Chetan Gonzales RN 10:07 AM Versed 2 mg Intravenous Chetan Gonzales RN 10:34 AM Lidocaine 2% 2 ml Subcutaneous Etienne Lopez DO 10:39 AM Heparin 2000 units Nitroglycerin 200 mcg Verapamil 2.5 mg Intraarterial Etienne Lopez DO 10:53 AM Heparin 2000 units Intravenous Chetan Gonzales RN 10:57 AM 90mg Adenosine in 90 ml 0.9 NS 983 ml/hr Intravenous Chetan Gonzales RN 11:04 AM 90mg Adenosine in 90 ml 0.9 NS 983 ml/hr Intravenous Chetan Gonzales RN ASA Classification: CLASS IV- Severe systemic that is constant threat to patient's life Marcy Score Preprocedure Postprocedure Activity 2- Moves 4 extremities sustained head lift Activity 2- Moves 4 extremities sustained head lift Circulation 2- SBP +/= 20 points of pre-anesthetic level Circulation 2- SBP +/= 20 points of pre-anesthetic level Consciousness 2- Awake and alert oriented x 3 Consciousness 2- Awake and alert oriented x 3 O2 Saturation 2- Able to maintain O2 satruation of 92% on room air O2 Saturation 2- Able to maintain O2 satruation of 92% on room air Respiratory 2- Able to deep breathe and cough well Respiratory 2- Able to deep breathe and cough well Total Score 10 Total Score 10 Contrast Agent: Isovue Diagnostic Contrast: 110 ml Total Contrast: 110 ml Fluoro Dose: 16286 mGy Activated Clotting Time Time Seconds to Clot 10:52 AM 259 Procedure Log Time Note Enter By 09:59 AM CathStat 09:59 AM Pt arrived to [employer] 2 at 09:59 dylan 09:59 AM Chetan Gonzales RN Position: Inlayer Time in: 09:59 dylan 09:59 AM Marvin Viera RN Position: Monitor Time in: 09:59 dylan 09:59 AM Augusta Petit RT (R) Position: Scrub Time in: 09:59 [facility] 09:59 AM Patient charges- Angio tray pack, Navilyst 3mm J, Pulse Oximetry and ACIST tubing and transducer [facility] 10:00 AM Hair removed from procedure site in procedure lab using clippers. Bilateral groin prepped with Chloraprep by Ariadna Prater RT, then patient was draped. Skin intact. [facility] 10:00 AM Ariadna Prater RT Position: RT (R) Time in: 10:00 [facility] 10:00 AM Kassidy Rich RT (R) Position: RT(R) Time in: 10:00 [facility] 10:00 AM Physician arrived 10:00 [facility] 10:00 AM Meet and romina completed [facility] 10:00 AM Sign in performed according to hospital policy. [facility] 10:00 AM Procedure start 10:00 [facility] 10:00 AM Time: 10:00 Patient comfortable and pain free: Yes [facility] 10:00 AM Time: 10:00LOC: 5 = Fully awake and oriented or at pre-proc level [facility] 10:03 AM Vitals capture started with the following parameters, Patient=Adult, Interval=5 min, Initial Ptgugffu=669 mmHg, Deflation Rate=5 mmHg, Cuff placed on Right Arm 10:04 AM Case Start 10:04 AM Recorded ECG: HR=73 Condition=Condition 1 10:04 AM HR=81 bpm, AFGK=362/78 mmhg, SpO2=95.0 %, Resp=10 B/min 10:06 AM Time: 10:06 Oxygen on at 6 L/min per Oxy Mask [facility] 10:06 AM Time: 10:00 Patient comfortable and pain free: Yes [facility] 10:06 AM Time: 10:00LOC: 5 = Fully awake and oriented or at pre-proc level [facility] 10:07 AM Time: 10:07 Versed 2 mg Intravenous Given by [facility] 10:09 AM HR=65 bpm, BSIP=623/87 mmhg, SpO2=72.0 %, Resp=21 B/min, Comment=SR 10:13 AM Pressure channel 2 zeroed. 10:13 AM HR=75 bpm, OCOV=723/86 mmhg, AzM0=431.0 %, Resp=22 B/min, Comment=SR 10:17 AM ASA Class CLASS IV- Severe systemic that is constant threat to patient's life [email or web address] 10:18 AM HR=69 bpm, QFHM=607/84 mmhg, NrS5=019.0 %, Resp=18 B/min, Comment=SR 10:21 AM Time: 10:06 Patient comfortable and pain free: Yes [email or web address] 10:21 AM Time: 10:06LOC: 4 = Oriented but drowsy [email or web address] 10:23 AM HR=68 bpm, RKFD=753/78 mmhg, TbW1=767.0 %, Resp=20 B/min 10:25 AM Clinical Presentation: Non-STEMI jcallihan 10:25 AM Time out performed according to hospital policy jcallan 10:29 AM HR=69 bpm, ASTT=716/72 mmhg, UjN1=037.0 %, Resp=28 B/min, Comment=SR 10:34 AM HR=69 bpm, VNYE=920/71 mmhg, DqE2=738.0 %, Resp=31 B/min, Comment=SR 10:35 AM Time: 10:34 2 ml Lidocaine 2% to right radial Subcutaneous [facility] 10:37 AM Time: 10:LOC: 4 = Oriented but drowsy [email or web address] 10:37 AM Time: 10:21 Patient comfortable and pain free: Yes jcallan 10:38 AM Access obtained by percutaneous puncture. 5/6Fr 11cm Terumo Glidesheath sheath placed in right Radial artery. [id number] jcallihan 10:38 AM HR=80 bpm, YPAU=639/68 mmhg, NnC9=522.0 %, Resp=41 B/min, Comment=SR 10:39 AM Time: 10:39 Patient given 2,000 units Heparin, 200 mcg Nitroglycerin, and 2.5 mg Verapamil Intraarterial by Etienne Lopez DO. This is given to reduce risk of vessel spasm and thrombosis. [email or web address] 10:39 AM 6Fr FR 4 catheter inserted over the wire [facility] 10:39 AM 0.035 145cm Navilyst 3mmJ wire [id number] jcallihan 10:41 AM Catheter selectively placed in left ventricle jcallihan 10:42 AM Recorded Pressure: LV, HR=71, Condition=Condition 1 (Left Ventricle) LV 94/22/26 10:42 AM Recorded Pressure: LV, Ao, HR=73, Condition=Condition 1 (Left Ventricle) LV 94/16/25, (Aorta) Ao 86/60/71 10:43 AM Bolus angiogram of left Ventricle complete [email or web address] 10:43 AM RCA angiography performed in multiple views. [email or web address] 10:43 AM Recorded Pressure: Ao, HR=70, Condition=Condition 1 (Aorta) Ao 85/59/71 10:43 AM HR=70 bpm, BGPT=749/66 mmhg, LkB3=162.0 %, Resp=19 B/min, Comment=SR 10:44 AM Catheter removed [email or web address] 10:45 AM 6Fr FL 4 catheter inserted over the wire [facility] jcallihan 10:46 AM LCA angiography performed in multiple views. [email or web address] 10:48 AM HR=71 bpm, LJNK=881/54 mmhg, WgJ6=878.0 %, Resp=18 B/min, Comment=SR 10:50 AM Catheter removed jcallan 10:51 AM 6Fr JL4 Runway guide catheter was used to cannulate the PCI vessel successfully. reused? No jcallihan 10:51 AM .014 ChoICE PT Extra Support 300cm guide wire across target lesion- successful. reused? No [email or web address] 10:53 AM At 10:52 the ACT was 259 seconds. [email or web address] 10:53 AM HR=71 bpm, FNYW=843/72 mmhg, IbU8=189.0 %, Resp=17 B/min 10:53 AM Time: 10:53 Heparin 2000 units Intravenous Given by Chetan Gonzales RN Ibrahim pump jcallihan 10:54 AM Lesion found in Proximal LAD. Pre Stenosis: 40 Pre KEYON Flow: 3: Complete and Brisk Flow/Perfusion jcallihan 10:55 AM Asist FFR Catheter advanced to target lesion. [email or web address] 10:56 AM Recorded Pressure: Ao, RV, HR=63, Condition=Condition 1 (Aorta) Ao 88/53/68, (Right Ventricle) RV -4/-5/-4 10:58 AM Pressure channel 2 zeroed. 10:58 AM HR=72 bpm, MNZY=110/70 mmhg, SwG6=657 %, Resp=23 B/min 10:59 AM Time: 10:57 90mg Adenosine in 90 ml 0.9 NS 983 ml/hr Intravenous Given by Chetan Gonzales RN Ibrahim pump jcallihan 11:01 AM Recorded Pressure: Ao, RV, HR=73, Condition=Condition 1 (Aorta) Ao 86/57/70, (Right Ventricle) RV 107/82/83 11:01 AM FFR Measurement: 0.96 jcallan 11:02 AM Pressure channel 2 zeroed. 11:04 AM Asist FFR Catheter advanced to target lesion. [email or web address] 11:04 AM HR=72 bpm, JMXZ=891/97 mmhg, LrL4=312.0 %, Resp=25 B/min 11:04 AM Time: 11:04 90mg Adenosine in 90 ml 0.9 NS 983 ml/hr Intravenous Given by Chetan Gonzales RN Ibrahim pump jcallihan 11:06 AM Recorded Pressure: Ao, RV, HR=70, Condition=Condition 1 (Aorta) Ao 86/56/69, (Right Ventricle) RV 75/50/53 11:06 AM Adenosine stopped [email or web address] 11:06 AM FFR Measurement: 0.91 [email or web address] 11:07 AM FFR wire removed. Guide wire removed intact. [email or web address] 11:08 AM Guide catheter removed intact. [email or web address] 11:08 AM HR=70 bpm, YKLA=552/73 mmhg, EoL0=367.0 %, Resp=15 B/min 11:10 AM Coronary Dominance: right [email or web address] 11:10 AM Lesion found in Distal LAD. Pre Stenosis: 50 Pre KEYON Flow: [email or web address] 11:11 AM Lesion found in 1st Diagonal. Pre Stenosis: 90 Pre KEYON Flow: [email or web address] 11:11 AM Lesion found in Mid Circumflex. Pre Stenosis: 30 Pre KEYON Flow: [email or web address] 11:11 AM Lesion found in 2nd Marginal. Pre Stenosis: 100 Pre KEYON Flow: [email or web address] 11:12 AM Procedure completed at 11:12 02/06/2018 jcallan 11:13 AM Did you address KEYON flow and Dominance? Yes jcallihan 11:13 AM What is the NYHA Class? Class 2 [email or web address] 11:14 AM Sign out completed: Radiation Dose 1354.34 mGy, 89165 cGy/cm2 Fluoro Time: 6.9 Isovue 370 - 200ml contrast 110 ml given by Etienne Lopez DO. Complications: NoneCardiac Rehab Consult needed: NoConfirmed administered medications: Yes jcallihan 11:14 AM Isovue 370 - 200ml,1 Bottle(s) used. [email or web address] 11:14 AM Arterial sheath pulled, Vasc Band closure device used and was Successful S/N. jcallihan 11:14 AM 10 ml air in Vasc Band. [email or web address] 11:14 AM Estimated Blood Loss: minimal [email or web address] 11:14 AM Post ECG Paced jcallihan 11:14 AM Post Blood Pressure 110/67 jcallihan 11:14 AM Information taught Cardiac Cath and Vasc Band jcallihan 11:14 AM Education needs Procedure, Plan of Care, and Disease Process jcallihan 11:15 AM Learning barriers :None jcallihan 11:15 AM Education Methods [facility]bal [facility] AM Education evaluation Able to repeat information jcallihan 11:15 AM Site status No bleeding/hematoma - Rt Wrist as reported by Chetan Gonzales RN at 11:15 [email or web address] 11:16 AM Plavix, Effient or Brilinta given No jcallihan 11:16 AM Complications: None jcallihan 11:16 AM No family available [email or web address] 11:21 AM Report given to Sabrina SHERWOOD Pt taken to Room #33. 11:21 jcallihan 11:27 AM Patient out of room: 11:26 [email or web address] Complications Complication None None Hemodynamics Pressures Site Systolic/A Wave Diastolic/V Wave Mean LV 94 22 26 LV 94 16 25 AO 86 60 71 AO 85 59 71 AO 88 53 68 RV -4 -5 -4 AO 86 57 70 RV 107 82 83 AO 86 56 69 RV 75 50 53 Post Procedure Information Blood Pressure: 110/67 mmHg Rhythm: Paced Post procedural instructions were given Closure Device Time Device Success/Fail 02/06/2018 11:17:00 AM Mechanical Compression Successful Site Checks Time Location Status Staff Sheath In? Note 11:15 AM Rt Wrist No bleeding/hematoma Chetan Gonzales RN No Pulses Updated by Chetan Gonzales RN on 02/06/2018 11:27:09 AM electronically signed on 02/06/2018 11:28:20 AM with status of Final
[2018-02-06] MEDS: 0.9 % Sodium Chloride 1,000 ML IVC SCH (13:45)
[2018-02-06] MEDS: Ranolazine 500 MG TAB.ER.12H PO SCH ×2 (13:45→20:11)
[2018-02-06] MEDS: *HR* OxyCODONE/APAP 5/325 TABLET PO PRN (20:08)
[2018-02-06] MEDS: *HR* LORazepam 0.5 MG TABLET PO SCH (20:11)
[2018-02-07 05:22] LABS: Immature Granulocytes % 0.4 % (0-4); Nucleated Red Blood Cells 0.4 /100 WBC (0)
[2018-02-07 05:24] LABS: Basophils % 0.2 %; Eosinophils # 0.1 K/mcL (0.0-0.6); Eosinophils % 1.7 %; Hematocrit 33.6 % (37.5-50.1); Hemoglobin 9.3 g/dL (12.9-16.9); Lymphocytes # 1.6 K/mcL (0.6-4.6); Lymphocytes % 19.4 %; Mean Corpuscular HGB Conc 27.7 g/dL (31.6-35.5); Mean Corpuscular Hemoglobin 18.2 pg (28.0-33.3); Mean Corpuscular Volume 65.8 fL (83.0-100.0); Monocytes # 0.7 K/mcL (0.0-1.3); Monocytes % 9.1 %; Neutrophils # 5.6 K/mcL (1.6-8.9); Platelet Count 219 K/mcL (140-400); Red Blood Count 5.11 M/mcL (4.19-5.50); Red Cell Distribution Width 22.5 % (11.5-14.5); Segmented Neutrophils % 69.2 %
[2018-02-07 05:40] LABS: Calcium 8.6 mg/dL (8.6-10.3); Potassium 4.1 mEq/L (3.5-5.1)
[2018-02-07 05:45] LABS: Platelet Estimate Normal (Normal)
[2018-02-07 05:46] LABS: Anisocytosis 1+ (Not Present); Poikilocytosis 1+ (Not Present); Polychromasia 1+ (Not Present)
[2018-02-07] MEDS: Isosorbide MONOnitrate (24 HR) 60 MG TAB.ER.24H PO SCH (08:43)
[2018-02-07] MEDS: Ranolazine 500 MG TAB.ER.12H PO SCH ×2 (08:43→19:39)
[2018-02-07] MEDS: Aspirin Enteric Coated 81 MG Tablet PO SCH (08:44)
[2018-02-07] MEDS: Furosemide 40 MG/4 ML VIAL IVP SCH ×2 (08:45→17:08)
[2018-02-07] MEDS: *HR* Acetylcysteine 20% 600 MG/3 ML ORAL SYRINGE PO SCH ×2 (08:46→19:40)
[2018-02-07] MEDS: Artificial Tears SOLN 15 ML BOTTLE BOTH EYES SCH ×2 (08:50→19:40)
[2018-02-07] MEDS: Insulin LISPRO 300 UNITS/3 ML VIAL SQ SCH ×4 (08:51→20:22)
--- NOTE | 2018-02-07 15:20 | Internal Med Progress Note ---
Hospitalist Progress Note - Encounter Date of Encounter: 02/07/18 Time of Encounter: 13:30 - Subjective Interval History: Mr Curtis is currently admitted for unstable angina and CHF. He remains moderate to high risk due to potential for worsening clinical status. Mr Curtis wants to leave. He is breathing better but still very edematous and dyspneic. No CP today. No GI issues. Wants to move around. Agrees to stay for more diuresis. - Exam Vitals: Temp Pulse Resp BP Pulse Ox 97.7 F 87 17 107/71 97 02/07/18 11:43 02/07/18 11:43 02/07/18 11:43 02/07/18 11:43 02/07/18 11:43 Exam: General: Alert and oriented. Comfortable. Able to lie nearly flat. Skin: Normal color, no rash, no lesions. Head: Normocephalic and atraumatic EENT: EOMI, pupils equal, round. Cardiovascular: Normal S1 & S2, no rubs, murmurs or gallops. No JVD. Pulse regular. Lungs: Decreased in bases. No rales or wheeze. Abdomen: Soft, non-tender, no rigidity. Normal bowel sounds. Extremities :No deformity, no joint swelling or clubbing. Edema still present in lower extremities but slowly improving. 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 Pulses: Carotid and radial pulses normal +2. Rest of the physical exam is non contributory - Assessment and Plan (1) CHF (congestive heart failure) Current Visit: Yes Status: Chronic Assessment and Plan: Remains volume overloaded. Continue diuresis though creatinine has increased some today. Recheck labs tomorrow. Anticipate return to ECF in next 1-2 days. (2) Non-STEMI (non-ST elevated myocardial infarction) Current Visit: Yes Status: Acute Assessment and Plan: Had [facility] yesterday. No intervention. Medical management. Ranexa ordered. Appears to be doing better today. (3) CAD (coronary artery disease) Current Visit: Yes Status: Chronic Assessment and Plan: Ranexa has been added to regimen. Appears to have helped some. No changes at this time. (4) CKD (chronic kidney disease), stage III Current Visit: No Status: Chronic Assessment and Plan: Creatinine slightly higher today. Will recheck tomorrow to monitor closely as he has only one kidney. (5) COPD (chronic obstructive pulmonary disease) Current Visit: Yes Status: Chronic Assessment and Plan: Overall doing OK. Continue supportive care. (6) Hypertension Current Visit: No Status: Chronic Assessment and Plan: Controlled at this time. (7) DM type 2 (diabetes mellitus, type 2) Current Visit: Yes Status: Chronic Assessment and Plan: Blood sugars are controlled. 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 Monitoring renal function. (8) Anasarca Current Visit: Yes Status: Chronic Assessment and Plan: Due to volume overload (and [facility] - Time Spent with Patient Total time spent is greater than 50% in coordination of care (as documented) at patient's floor/unit and/or counseling patient: Internal Medicine: Result - Labs CBC & Chem 7: 02/07/18 04:55 02/07/18 04:55 Labs: Short CBC 02/07/18 Range/Units 04:55 WBC 8.1 (4.3-11.1) K/mcL Hgb 9.3 L (12.9-16.9) g/dL Hct 33.6 L (37.5-50.1) % Plt Count 219 (140-400) K/mcL Neutrophils # 5.6 (1.6-8.9) K/mcL BMP 02/07/18 04:55 Sodium 137 Potassium 4.1 Chloride 104 Carbon Dioxide 23 BUN 26 H Creatinine 1.75 H Glucose 139 H Calcium 8.6 - ABG Interpretation ABG results: PT/INR, D-dimer PT 20.0 Seconds (9.4-12.1) H 02/06/18 03:24 - VTE Reasons for not Prescribing Prophylaxis: Not indicated-Anticoagulated or INR therapeutic Consult Discharge Plan - Plan Referrals: NONE,PCP [Primary Care Provider] - (1) CHF (congestive heart failure) Qualifiers: Heart failure type: systolic Heart failure chronicity: acute on chronic Qualified Code(s): I50.23 - Acute on chronic systolic (congestive) heart failure (3) CAD (coronary artery disease) Qualifiers: Coronary Disease-Associated Artery/Lesion type: [place] artery [place] vs. transplanted heart: [place] heart Associated angina: without angina Qualified Code(s): I25.10 - Atherosclerotic heart disease of [place] coronary artery without angina pectoris (5) COPD (chronic obstructive pulmonary disease) Qualifiers: COPD type: chronic bronchitis Chronic bronchitis type: simple Qualified Code (s): J41.0 - Simple chronic bronchitis (6) Hypertension Qualifiers: Hypertension type: essential hypertension Qualified Code(s): I10 - Essential (primary) hypertension (7) DM type 2 (diabetes mellitus, type 2) Qualifiers: Diabetes mellitus residential insulin use: without residential use Diabetes mellitus complication status: with kidney complications Diabetes mellitus complication detail: with chronic kidney disease Chronic kidney disease stage: stage 3 (moderate) Qualified Code(s): E11.22 - Type 2 diabetes mellitus with diabetic chronic kidney disease; N18.3 - Chronic kidney disease, stage 3 ( moderate)
[2018-02-07] MEDS: *HR* OxyCODONE/APAP 5/325 TABLET PO PRN (15:47)
[2018-02-07] MEDS: *HR* Rivaroxaban 15 MG TABLET PO SCH (17:08)
[2018-02-07] MEDS: *HR* LORazepam 0.5 MG TABLET PO SCH (19:39)
[2018-02-07] MEDS: 0.9 % Sodium Chloride 1,000 ML IVC SCH (20:23)
[2018-02-08 06:46] LABS: Hematocrit 31.3 % (37.5-50.1); Hemoglobin 8.6 g/dL (12.9-16.9); Mean Corpuscular HGB Conc 27.5 g/dL (31.6-35.5); Mean Corpuscular Hemoglobin 17.8 pg (28.0-33.3); Mean Corpuscular Volume 64.7 fL (83.0-100.0); Platelet Count 190 K/mcL (140-400); Red Blood Count 4.84 M/mcL (4.19-5.50); Red Cell Distribution Width 22.7 % (11.5-14.5)
[2018-02-08] MEDS ORDERED: Albumin 25% 12.5gm/50mL 12.5 GM/50 ML IV.SOLN IVPB ONE ×2 (08:29→17:30)
[2018-02-08] MEDS: Insulin LISPRO 300 UNITS/3 ML VIAL SQ SCH ×4 (08:32→20:35)
[2018-02-08] MEDS: Furosemide 40 MG/4 ML VIAL IVP SCH (08:32)
[2018-02-08] MEDS: Isosorbide MONOnitrate (24 HR) 60 MG TAB.ER.24H PO SCH (08:33)
[2018-02-08] MEDS: Ranolazine 500 MG TAB.ER.12H PO SCH ×2 (08:33→20:35)
[2018-02-08] MEDS: *HR* Acetylcysteine 20% 600 MG/3 ML ORAL SYRINGE PO SCH ×3 (08:34→20:34)
[2018-02-08] MEDS: Artificial Tears SOLN 15 ML BOTTLE BOTH EYES SCH ×2 (08:34→20:34)
[2018-02-08] MEDS: Aspirin Enteric Coated 81 MG Tablet PO SCH (08:35)
[2018-02-08 09:23] LABS: Calcium 8.7 mg/dL (8.6-10.3); Potassium 4.2 mEq/L (3.5-5.1)
--- NOTE | 2018-02-08 15:00 | Internal Med Progress Note ---
Hospitalist Progress Note - Encounter Date of Encounter: 02/08/18 Time of Encounter: 13:30 - Subjective Interval History: Mr Curtis is currently admitted for unstable angina and CHF. He remains moderate to high risk due to potential for worsening clinical status. Mr Curtis is not diuresing much (weight went up overnight) but has not had strict I/Os. He feels OK and is able to lie flat more. No fever or chills. His creatinine has increased some today. Denies pain. No GI issues. - Exam Vitals: Temp Pulse Resp BP Pulse Ox 98.3 F 88 18 122/73 98 02/08/18 12:58 02/08/18 12:58 02/08/18 12:58 02/08/18 12:58 02/08/18 12:58 Exam: General: Alert and oriented. Comfortable. Lying almost flat in bed. Skin: Normal color, no rash, no lesions. Head: Normocephalic and atraumatic EENT: EOMI, pupils equal, round. Mucus membranes dry Cardiovascular: Normal S1 & S2, no rubs, murmurs or gallops. No JVD. Pulse regular. Lungs: Decreased in bases. No rales or wheeze. Abdomen: Soft, non-tender, no rigidity. Normal bowel sounds. Extremities: No deformity, no joint swelling or clubbing. Edema still present in lower extremities. 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 Pulses: Carotid and radial pulses normal +2. Rest of the physical exam is non contributory - Assessment and Plan (1) CHF (congestive heart failure) Current Visit: Yes Status: Chronic Assessment and Plan: Still volume overloaded. Creatinine has increased overnight. Will add Albumin and decrease dose of Lasix. If stable may consider discharge tomorrow. (2) Non-STEMI (non-ST elevated myocardial infarction) Current Visit: Yes Status: Acute Assessment and Plan: Had [facility]. No intervention. Medical management. Ranexa ordered. Denies pain at this time. (3) CAD (coronary artery disease) Current Visit: Yes Status: Chronic Assessment and Plan: Ranexa has been added to regimen. No changes at this time. Seems to be doing somewhat better. (4) CKD (chronic kidney disease), stage III Current Visit: No Status: Chronic Assessment and Plan: Creatinine increased today. Lasix decreased and albumin started. Recheck tomorrow. (5) COPD (chronic obstructive pulmonary disease) Current Visit: Yes Status: Chronic Assessment and Plan: Overall doing OK. Continue supportive care. (6) DM type 2 (diabetes mellitus, type 2) Current Visit: Yes Status: Chronic Assessment and Plan: Blood sugars are controlled. 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 Monitoring renal function. (7) Hypertension Current Visit: No Status: Chronic Assessment and Plan: Controlled at this time. (8) Anasarca Current Visit: Yes Status: Chronic Assessment and Plan: Due to volume overload (and las[facility] had been [facility] at [facility] Seems to be slowly improving with diuresis. - Time Spent with Patient Total time spent is greater than 50% in coordination of care (as documented) at patient's floor/unit and/or counseling patient: Internal Medicine: Result - Labs CBC & Chem 7: 02/08/18 05:36 02/08/18 05:36 Labs: Short CBC 02/08/18 Range/Units 05:36 WBC 8.1 (4.3-11.1) K/mcL Hgb 8.6 L (12.9-16.9) g/dL Hct 31.3 L (37.5-50.1) % Plt Count 190 (140-400) K/mcL BMP 02/08/18 05:36 Sodium 138 Potassium 4.2 Chloride 104 Carbon Dioxide 23 BUN 28 H Creatinine 1.81 H Glucose 113 H Calcium 8.7 - ABG Interpretation ABG results: PT/INR, D-dimer PT 20.0 Seconds (9.4-12.1) H 02/06/18 03:24 - VTE Reasons for not Prescribing Prophylaxis: Not indicated-Anticoagulated or INR therapeutic Consult Discharge Plan - Plan Referrals: NONE,PCP [Primary Care Provider] - (1) CHF (congestive heart failure) Qualifiers: Heart failure type: systolic Heart failure chronicity: acute on chronic Qualified Code(s): I50.23 - Acute on chronic systolic (congestive) heart failure (3) CAD (coronary artery disease) Qualifiers: Coronary Disease-Associated Artery/Lesion type: [place] artery [place] vs. transplanted heart: [place] Associated angina: without angina Qualified Code(s): I25.10 - Atherosclerotic heart disease of [place] coronary artery without angina pectoris (5) COPD (chronic obstructive pulmonary disease) Qualifiers: COPD type: chronic bronchitis Chronic bronchitis type: simple Qualified Code (s): J41.0 - Simple chronic bronchitis (6) DM type 2 (diabetes mellitus, type 2) Qualifiers: Diabetes mellitus medical terminologist insulin use: without detention use Diabetes mellitus complication status: with kidney complications Diabetes mellitus complication detail: with chronic kidney disease Chronic kidney disease stage: stage 3 (moderate) Qualified Code(s): E11.22 - Type 2 diabetes mellitus with diabetic chronic kidney disease; N18.3 - Chronic kidney disease, stage 3 ( moderate) (7) Hypertension Qualifiers: Hypertension type: essential hypertension Qualified Code(s): I10 - Essential (primary) hypertension
[2018-02-08] MEDS: *HR* Rivaroxaban 15 MG TABLET PO SCH (17:48)
[2018-02-08] MEDS ORDERED: Furosemide 20 MG/2 ML VIAL IVP ONE (18:00)
[2018-02-08] MEDS: *HR* LORazepam 0.5 MG TABLET PO SCH (20:35)
--- NOTE | 2018-02-09 07:27 | Discharge Summary ---
Orders not resulted at time of discharge: Pending orders 02/05/18 12:37 Occult Blood,Stool [BF] Routine 02/09/18 07:30 BMP [Basic Metabolic Panel] AM 0400 Complete Blood Count w/o Diff [HEME] AM 0400 Date of Encounter: 02/09/18 Time of Encounter: 07:27 - Discharge Diagnosis (1) Hypertension Status: Chronic Qualifiers: Hypertension type: essential hypertension Qualified Code(s): I10 - Essential (primary) hypertension (2) DM type 2 (diabetes mellitus, type 2) Status: Chronic Qualifiers: Diabetes mellitus terminal supervisor insulin use: without retirement use Diabetes mellitus complication status: with kidney complications Diabetes mellitus complication detail: with chronic kidney disease Chronic kidney disease stage : stage 3 (moderate) Qualified Code(s): E11.22 - Type 2 diabetes mellitus with diabetic chronic kidney disease; N18.3 - Chronic kidney disease, stage 3 ( moderate) (3) CKD (chronic kidney disease), stage III Status: Chronic (4) COPD (chronic obstructive pulmonary disease) Status: Chronic Qualifiers: COPD type: chronic bronchitis Chronic bronchitis type: simple Qualified Code(s): J41.0 - Simple chronic bronchitis (5) Non-STEMI (non-ST elevated myocardial infarction) Status: Acute (6) CAD (coronary artery disease) Status: Chronic Qualifiers: Coronary Disease-Associated Artery/Lesion type: [place] artery [place] vs. transplanted heart: [place] heart Associated angina: without angina Qualified Code(s): I25.10 - Atherosclerotic heart disease of [place] coronary artery without angina pectoris (7) CHF (congestive heart failure) Status: Chronic Qualifiers: Heart failure type: systolic Heart failure chronicity: acute on chronic Qualified Code(s): I50.23 - Acute on chronic systolic (congestive) heart failure (8) Anasarca Status: Chronic Hospital course: Mr. Curtis is a 72 year old male - Time Spent with Patient Total time spent providing and/or coordinating discharge services: - Discharge Medications Home Medications: Buspirone HCl [Buspar] 7.5 mg PO DAILY 11/22/16 [History] Atorvastatin Calcium [Lipitor] 80 mg PO QPM 11/30/16 [History] Carvedilol [Coreg] 6.25 mg PO DAILY 04/21/17 [History] Furosemide [Lasix] 40 mg PO DAILY 04/22/17 [History] LORazepam [Ativan] 0.5 mg PO HS 04/22/17 [History] Losartan [Cozaar] 25 mg PO DAILY 04/22/17 [History] Oxybutynin [Ditropan] 5 mg PO DAILY 04/22/17 [History] Sertraline [Zoloft] 50 mg PO HS 04/22/17 [History] Aspirin [Lo-Dose Aspirin EC] 81 mg PO DAILY 12/23/17 [History] Docusate Sodium [Dok] 100 mg PO BID 12/23/17 [History] Oxycodone HCl/Acetaminophen [Percocet 5-325 mg Tablet] 1 each PO Q6H PRN 2 Days #8 tablet 12/27/17 [Rx] Dextran 70/Hypromellose [Artificial Tears] 1 drop BOTH EYES BID 02/03/18 [ History] Isosorbide MONOnitrate [Isosorbide Mononitrate ER] 120 mg PO DAILY 02/03/18 [ History] Linagliptin [Tradjenta] 5 mg PO DAILY 02/03/18 [History] Omeprazole [PriLOSEC] 20 mg PO DAILY 02/03/18 [History] Potassium Chloride [K-Tab ER] 20 meq PO DAILY 02/03/18 [History] Tamsulosin [Flomax] 0.4 mg PO DAILY 02/03/18 [History] Allergies/Adverse Reactions: 3 Allergy/AdvReac Type Severity Reaction Status Date / Time No Known Allergies Allergy Verified 02/03/18 12:34 Date of admission: 02/03/18 22:39 Primary care physician: PCP NONE Consults: 02/05/18 13:09 Consult to Cardiac Rehabilitation-Phase1 [CONS] Routine Comment: Reason for Consult: NSTEMI Call Completed: No - Constitutional Vitals: Temp Pulse Resp BP Pulse Ox 97.6 F 87 20 137/71 100 02/09/18 07:12 02/09/18 07:12 02/09/18 07:12 02/09/18 07:12 02/09/18 07:12 General appearance: Present: A&O X 3, obese - Patient Status Condition: Fair - Discharge Instructions Follow Up With: NONE,PCP [Primary Care Provider] - - VTE Reasons for not Prescribing Prophylaxis: Not indicated-Anticoagulated or INR therapeutic
[2018-02-09] MEDS: Isosorbide MONOnitrate (24 HR) 60 MG TAB.ER.24H PO SCH (08:48)
[2018-02-09] MEDS: Ranolazine 500 MG TAB.ER.12H PO SCH ×2 (08:48→20:35)
[2018-02-09] MEDS: Aspirin Enteric Coated 81 MG Tablet PO SCH (08:48)
[2018-02-09] MEDS: Insulin LISPRO 300 UNITS/3 ML VIAL SQ SCH ×4 (08:50→21:01)
[2018-02-09] MEDS: Artificial Tears SOLN 15 ML BOTTLE BOTH EYES SCH ×2 (08:52→20:45)
[2018-02-09] MEDS: *HR* Acetylcysteine 20% 600 MG/3 ML ORAL SYRINGE PO SCH ×2 (10:19→20:37)
[2018-02-09 10:29] LABS: Hematocrit 32.9 % (37.5-50.1); Hemoglobin 9.2 g/dL (12.9-16.9); Mean Corpuscular Hemoglobin 18.2 pg (28.0-33.3); Platelet Count 156 K/mcL (140-400); Red Blood Count 5.06 M/mcL (4.19-5.50); Red Cell Distribution Width 22.4 % (11.5-14.5)
[2018-02-09 10:43] LABS: Calcium 8.7 mg/dL (8.6-10.3); Potassium 4.4 mEq/L (3.5-5.1)
--- NOTE | 2018-02-09 11:57 | Internal Med Progress Note ---
<Taylor Barker N - Last Filed: 02/09/18 12:08> Hospitalist Progress Note - Encounter Date of Encounter: 02/09/18 Time of Encounter: 12:26 - Subjective Interval History: Mr. Curtis has had worsening renal function over the last few days. His lasix was held yesterday due to rising creatinine; however, creatinine today was again elevated. Nephrology consultation pending. Patient denies any chest pain, shortness of breath, or respiratory difficulties. Nursing staff reports no overnight events. Patient denies any complaints or concerns at this time. - Exam Vitals: Temp Pulse Resp BP Pulse Ox 97.6 F 87 20 137/71 100 02/09/18 07:12 02/09/18 07:12 02/09/18 07:12 02/09/18 07:12 02/09/18 07:12 Exam: * General: Elderly male resting comfortably in bed. He does not appear to be in acute distress. * HEENT: Atraumatic and normocephalic. * Cardiovascular: Regular rate and rhythm. No murmurs, rubs, or gallops. * Respiratory: Chest rises and falls symmetrically. Expiratory wheezes present * Gastrointestinal: Active bowel sounds x 4 quadrants. Abdomen is distended. Nontender to palpation. * Extremities: 2-3+ bilateral LE pitting edema. - Assessment and Plan (1) Hypertension Current Visit: No Status: Chronic Assessment and Plan: BP controlled with coreg and losartan. Losartan held at this time secondary to worsening renal function. (2) DM type 2 (diabetes mellitus, type 2) Current Visit: Yes Status: Chronic Assessment and Plan: Accuchecks ACHS and low-dose sliding scale insulin. (3) CKD (chronic kidney disease), stage III Current Visit: No Status: Chronic Assessment and Plan: Worsening renal function today, as evidenced by increased creatinine. Nephrology consultation pending. (4) COPD (chronic obstructive pulmonary disease) Current Visit: Yes Status: Chronic Assessment and Plan: Mild expiratory wheezes present on exam today. Will continue to monitor and provide supportive care. Will consider CXR if respiratory status declines. (5) Non-STEMI (non-ST elevated myocardial infarction) Current Visit: Yes Status: Acute Assessment and Plan: S/p LHC without intervention. Patient denies chest pain or discomfort today. Will continue to monitor. (6) CHF (congestive heart failure) Current Visit: Yes Status: Chronic Assessment and Plan: Patient remains volume overloaded, which is exacerbated by hold on diuretics due to worsening renal function. Will continue to monitor. Plan for fluid restricted diet once kidneys begin to recover. (7) Anasarca Current Visit: Yes Status: Chronic Assessment and Plan: Patient appears grossly fluid overloaded, with 2-3+ bilateral LE pitting edema. Will reinitiate lasix diuresis when able to be tolerated by kidneys. (8) FELICIA (acute kidney injury) Current Visit: Yes Status: Acute Assessment and Plan: Patient has continued to have increased creatinine (1.91 today), even with hold on lasix. Nephrology consultation placed, and cozaar has been held by their request. Patient has been started on IV fluids at 60 mL/hour. Will continue to monitor and adjust per nephrology recommendations. - Time Spent with Patient Total time spent is greater than 50% in coordination of care (as documented) at patient's floor/unit and/or counseling patient: Internal Medicine: Result - Labs CBC & Chem 7: 02/09/18 10:04 02/09/18 10:04 Labs: Short CBC 02/09/18 Range/Units 10:04 WBC 8.3 (4.3-11.1) K/mcL Hgb 9.2 L (12.9-16.9) g/dL Hct 32.9 L (37.5-50.1) % Plt Count 156 (140-400) K/mcL BMP 02/09/18 10:04 Sodium 135 L Potassium 4.4 Chloride 102 Carbon Dioxide 23 BUN 34 H Creatinine 1.91 H Glucose 150 H Calcium 8.7 - ABG Interpretation ABG results: PT/INR, D-dimer PT 20.0 Seconds (9.4-12.1) H 02/06/18 03:24 - VTE Reasons for not Prescribing Prophylaxis: Not indicated-Anticoagulated or INR therapeutic Consult Discharge Plan - Plan Referrals: NONE,PCP [Primary Care Provider] - <Gregorio Nick - Last Filed: 02/09/18 16:34> Hospitalist Progress Note - Encounter Date of Encounter: 02/09/18 - Exam Vitals: Temp Pulse Resp BP Pulse Ox 97.4 F L 79 16 104/52 100 02/09/18 14:44 02/09/18 14:44 02/09/18 14:44 02/09/18 14:44 02/09/18 14:44 - Assessment and Plan (1) Hypertension Current Visit: No Status: Chronic (2) DM type 2 (diabetes mellitus, type 2) Current Visit: Yes Status: Chronic (3) CKD (chronic kidney disease), stage III Current Visit: No Status: Chronic (4) COPD (chronic obstructive pulmonary disease) Current Visit: Yes Status: Chronic (5) Non-STEMI (non-ST elevated myocardial infarction) Current Visit: Yes Status: Acute (6) CHF (congestive heart failure) Current Visit: Yes Status: Chronic (7) Anasarca Current Visit: Yes Status: Chronic (8) FELICIA (acute kidney injury) Current Visit: Yes Status: Acute (9) CAD (coronary artery disease) Current Visit: Yes Status: Chronic - Time Spent with Patient Total time spent is greater than 50% in coordination of care (as documented) at patient's floor/unit and/or counseling patient: Internal Medicine: Result - Labs CBC & Chem 7: 02/09/18 10:04 02/09/18 10:04 Labs: Short CBC 02/09/18 Range/Units 10:04 WBC 8.3 (4.3-11.1) K/mcL Hgb 9.2 L (12.9-16.9) g/dL Hct 32.9 L (37.5-50.1) % Plt Count 156 (140-400) K/mcL BMP 02/09/18 10:04 Sodium 135 L Potassium 4.4 Chloride 102 Carbon Dioxide 23 BUN 34 H Creatinine 1.91 H Glucose 150 H Calcium 8.7 - ABG Interpretation ABG results: PT/INR, D-dimer PT 20.0 Seconds (9.4-12.1) H 02/06/18 03:24 - Attending Attestation I examined this patient and my medical decision-making was reviewed with the Resident Physician on 02/09/18. I agree with the documented findings, disposition and treatment plan as described except to the extent set forth below. Mr Curtis is currently admitted for [place] and volume overload. His creatinine has increased. He remains moderate to high risk due to potential for worsening clinical status. Mr Curtis feels OK but is very edematous. His creatinine has increased again. No fever or chills. No CP now. No GI issues. Exam Alert Comfortable on edge of bed Mucus membranes dry Heart distant and not tachy No wheeze Abd distended and soft Edema throughout I/P 1. NSTEMI - resolved 2. Anasarca 3. FELICIA - has CKD and one kidney. Will ask for renal input regarding increasing creatinine. Small amount of fluids ordered. ARB held. Further diagnoses and plans as above. <Taylor Barker - Last Filed: 02/09/18 12:08> (1) Hypertension Qualifiers: Hypertension type: essential hypertension Qualified Code(s): I10 - Essential (primary) hypertension (2) DM type 2 (diabetes mellitus, type 2) Qualifiers: Diabetes mellitus automotive manufacturer insulin use: without automotive manufacturer use Diabetes mellitus complication status: with kidney complications Diabetes mellitus complication detail: with chronic kidney disease Chronic kidney disease stage: stage 3 (moderate) Qualified Code(s): E11.22 - Type 2 diabetes mellitus with diabetic chronic kidney disease; N18.3 - Chronic kidney disease, stage 3 ( moderate) (4) COPD (chronic obstructive pulmonary disease) Qualifiers: COPD type: chronic bronchitis Chronic bronchitis type: simple Qualified Code (s): J41.0 - Simple chronic bronchitis (6) CHF (congestive heart failure) Qualifiers: Heart failure type: systolic Heart failure chronicity: acute on chronic Qualified Code(s): I50.23 - Acute on chronic systolic (congestive) heart failure <Gregorio Nick A - Last Filed: 02/09/18 16:34> (1) Hypertension Qualifiers: Hypertension type: essential hypertension Qualified Code(s): I10 - Essential (primary) hypertension (2) DM type 2 (diabetes mellitus, type 2) Qualifiers: Diabetes mellitus automotive manufacturer insulin use: without automotive manufacturer use Diabetes mellitus complication status: with kidney complications Diabetes mellitus complication detail: with chronic kidney disease Chronic kidney disease stage: stage 3 (moderate) Qualified Code(s): E11.22 - Type 2 diabetes mellitus with diabetic chronic kidney disease; N18.3 - Chronic kidney disease, stage 3 ( moderate) (4) COPD (chronic obstructive pulmonary disease) Qualifiers: COPD type: chronic bronchitis Chronic bronchitis type: simple Qualified Code (s): J41.0 - Simple chronic bronchitis (6) CHF (congestive heart failure) Qualifiers: Heart failure type: systolic Heart failure chronicity: acute on chronic Qualified Code(s): I50.23 - Acute on chronic systolic (congestive) heart failure (9) CAD (coronary artery disease) Qualifiers: Coronary Disease-Associated Artery/Lesion type: [place] artery [place] vs. transplanted heart: [place] heart Associated angina: without angina Qualified Code(s): I25.10 - Atherosclerotic heart disease of [place] coronary artery without angina pectoris
[2018-02-09] MEDS ORDERED: 0.9 % Sodium Chloride 1,000 ML IVC SCH (12:15)
--- NOTE | 2018-02-09 13:14 | Electrocardiograph Report ---
[address] [place] [address] Test Date: 2018-02-04 Pat Name: Henri Curtis Department: 113 Room: 3B Gender: M Mental Health Case Manager: : [id number] Requested By: [id number] Order Number: [id number] Reading MD: Freddy Metcalf Measurements Intervals [place] Rate: 90 P: PA: 0 QRS: 49 QRSD: 147 T: -78 QT: 420 QTc: 468 Interpretive Statements ATRIAL FLUTTER/TACHYCARDIA ABERRANT CONDUCTION OR VENTRICULAR PREMATURE COMPLEXES RIGHT BUNDLE BRANCH BLOCK ANTERIOR MYOCARDIAL INFARCTION, OF INDETERMINATE AGE Electronically Signed On 02-09-2018 13:12:17 EDT by Freddy Metcalf
[2018-02-09] MEDS: *HR* Rivaroxaban 15 MG TABLET PO SCH (16:10)
[2018-02-09] MEDS: *HR* LORazepam 0.5 MG TABLET PO SCH (20:35)
[2018-02-09] MEDS: *HR* OxyCODONE/APAP 5/325 TABLET PO PRN (20:44)
[2018-02-10 06:04] LABS: Nucleated Red Blood Cells 0.7 /100 WBC (0); Red Cell Distribution Width 22.8 % (11.5-14.5)
[2018-02-10 06:05] LABS: Basophils % 0.5 %; Eosinophils # 0.2 K/mcL (0.0-0.6); Immature Granulocytes % 0.4 % (0-4); Lymphocytes # 1.9 K/mcL (0.6-4.6); Lymphocytes % 23.2 %; Mean Corpuscular HGB Conc 27.3 g/dL (31.6-35.5); Mean Corpuscular Hemoglobin 17.6 pg (28.0-33.3); Mean Corpuscular Volume 64.6 fL (83.0-100.0); Monocytes # 0.8 K/mcL (0.0-1.3); Neutrophils # 5.2 K/mcL (1.6-8.9); Platelet Count 188 K/mcL (140-400); Red Blood Count 5.11 M/mcL (4.19-5.50); Segmented Neutrophils % 63.9 %
[2018-02-10 06:27] LABS: Calcium 8.8 mg/dL (8.6-10.3); Potassium 4.4 mEq/L (3.5-5.1)
[2018-02-10 06:29] LABS: Anisocytosis 2+ (Not Present); Hypochromasia Present (Not Present)
[2018-02-10 06:30] LABS: Microcytosis Present (Not Present); Platelet Estimate Normal (Normal); Polychromasia 2+ (Not Present)
--- NOTE | 2018-02-10 07:52 | Internal Med Progress Note ---
<Radha Giordano - Last Filed: 02/10/18 14:21> Hospitalist Progress Note - Encounter Date of Encounter: 02/10/18 Time of Encounter: 09:00 - Exam Vitals: Temp Pulse Resp BP Pulse Ox 97.4 F L 97 20 135/82 96 02/10/18 11:36 02/10/18 11:36 02/10/18 11:36 02/10/18 11:36 02/10/18 11:36 Exam: . - Assessment and Plan (1) Non-STEMI (non-ST elevated myocardial infarction) Current Visit: Yes Status: Acute (2) FELICIA (acute kidney injury) Current Visit: Yes Status: Acute (3) Hypertension Current Visit: Yes Status: Chronic (4) DM type 2 (diabetes mellitus, type 2) Current Visit: Yes Status: Chronic (5) CKD (chronic kidney disease), stage III Current Visit: Yes Status: Chronic (6) COPD (chronic obstructive pulmonary disease) Current Visit: Yes Status: Chronic (7) CAD (coronary artery disease) Current Visit: Yes Status: Chronic (8) CHF (congestive heart failure) Current Visit: Yes Status: Chronic (9) Anasarca Current Visit: Yes Status: Chronic - Time Spent with Patient Total time spent is greater than 50% in coordination of care (as documented) at patient's floor/unit and/or counseling patient: Internal Medicine: Result - Labs CBC & Chem 7: 02/10/18 05:33 02/10/18 05:33 Labs: Short CBC 02/10/18 Range/Units 05:33 WBC 8.1 (4.3-11.1) K/mcL Hgb 9.0 L (12.9-16.9) g/dL Hct 33.0 L (37.5-50.1) % Plt Count 188 (140-400) K/mcL Neutrophils # 5.2 (1.6-8.9) K/mcL BMP 02/10/18 05:33 Sodium 137 Potassium 4.4 Chloride 105 Carbon Dioxide 22 L BUN 34 H Creatinine 1.71 H Glucose 117 H Calcium 8.8 - ABG Interpretation ABG results: PT/INR, D-dimer PT 20.0 Seconds (9.4-12.1) H 02/06/18 03:24 Consult Discharge Plan - Plan Referrals: NONE,PCP [Primary Care Provider] - - Attending Attestation I saw, evaluated and examined this patient and my medical decision-making was reviewed with the Resident Physician, Taylor Barker. I agree with the documented findings, disposition and treatment plan as described except to any changes set forth below. We independently had [id number] contact with the patient. 72-year-old male patient hospitalized for non-ST elevation [place]. Having acute kidney injury post-left heart catheterization. Patient continues to have lower extremity edema and generalized anasarca. Patient denies any chest pain at this time. No shortness of breath. No fever or chills reported overnight. On examination, patient is awake and alert. Sitting up in chair. Has bilateral pitting pedal edema. Abdomen is soft, nontender. Heart sounds are normal. Patient does have basal crackles. Non-ST elevation [place]: Status post left heart catheterization. Recommend aggressive risk factor modification and medical management. Patient had severe 2 vessel coronary artery disease. On aspirin, statin, beta morris and Cozaar but Cozaar held due to acute kidney injury. Acute kidney injury: Concern for contrast-induced nephropathy. However patient does have chronic kidney disease and has a single kidney. Renal function appears to be somewhat better today with creatinine of 1.71 today. Not yet at baseline. Awaiting nephrology input. Diabetes mellitus type 2: Fairly controlled. Continue current insulin regimen. Acute on chronic congestive heart failure: Systolic. Patient does continue to have bilateral lower extremity edema. However given worsening renal function, diuretics have been held. We will await nephrology input. COPD: With chronic respiratory failure. Continue O2 supplementation. Continue bronchodilators as needed. <Taylor Barker N - Last Filed: 02/10/18 15:50> Hospitalist Progress Note - Encounter Date of Encounter: 02/10/18 Time of Encounter: 07:52 - Subjective Interval History: Mr. Curtis has had worsening renal function over the last few days. His lasix was held yesterday due to rising creatinine; however, creatinine today was again elevated. Nephrology consultation pending. Patient denies any chest pain, shortness of breath, or respiratory difficulties. Nursing staff reports no overnight events. Patient denies any complaints or concerns at this time. 02/10 - Mr. Curtis states that he is feeling well today, and that his breathing has further improved. He states that he would like to go home. His lasix was again held last night secondary to rising creatinine and concerns for his single kidney. Nephrology consult pending. He denies any chest pain, shortness of breath, or other complaints. - Exam Vitals: Temp Pulse Resp BP Pulse Ox 97.5 F L 84 20 123/88 99 02/10/18 07:34 02/10/18 07:34 02/10/18 07:34 02/10/18 07:34 02/10/18 07:34 Exam: * General: Elderly male sitting comfortably in bed. He does not appear to be in acute distress. * HEENT: Atraumatic and normocephalic. * Cardiovascular: Regular rate and rhythm. S1 and S2 present. * Respiratory: Chest rises and falls symmetrically. Scattered expiratory wheezes present * Gastrointestinal: Abdomen is distended. Nontender to palpation. * Extremities: 2-3+ bilateral LE pitting edema. - Assessment and Plan (1) CHF (congestive heart failure) Current Visit: Yes Status: Chronic Assessment and Plan: Patient remains overtly volume overloaded, which is exacerbated by hold on diuretics. Initiated fluid restriciton diet today with total intake of 1.5L. Awaiting nephrology evaluation prior to reinitiation of diuretic therapy. (2) Anasarca Current Visit: Yes Status: Chronic Assessment and Plan: Patient is grossly edematous. Plan for aggressive diuresis as tolerated by kidney once nephrology has evaluated him. (3) FELICIA (acute kidney injury) Current Visit: Yes Status: Acute Assessment and Plan: Patient had improvement in renal function, as evidenced by creatinine of 1.71 today, down from 1.9 yesterday. Nephrology recommendations pending. Patient is currently on fluid-restricted diet due to acute CHF exacerbation. (4) Non-STEMI (non-ST elevated myocardial infarction) Current Visit: Yes Status: Acute Assessment and Plan: S/p LHC without intervention. Patient denies chest pain or discomfort today. Will continue to monitor. (5) Hypertension Current Visit: Yes Status: Chronic Assessment and Plan: BP controlled with coreg and losartan. Losartan held at this time secondary to worsening renal function. (6) DM type 2 (diabetes mellitus, type 2) Current Visit: Yes Status: Chronic Assessment and Plan: Accuchecks ACHS and low-dose sliding scale insulin. Blood sugar is fairly well- controlled, with morning glucose of 117. Will continue to monitor and readjust as needed. (7) CKD (chronic kidney disease), stage III Current Visit: Yes Status: Chronic Assessment and Plan: Nephrology consult pending. (8) COPD (chronic obstructive pulmonary disease) Current Visit: Yes Status: Chronic Assessment and Plan: Scattered expiratory wheezes present on exam today. Will continue to monitor and provide supportive care. Will consider breathing treatments if respiratory status declines. (9) CAD (coronary artery disease) Current Visit: Yes Status: Chronic Assessment and Plan: Patient is currently on atorvastatin and ranexa. He denies any angina. Currently holding cozaar secondary to FELICIA. DVT Prophylaxis: Patient is anticoagulated with xarelto. - Time Spent with Patient Total time spent is greater than 50% in coordination of care (as documented) at patient's floor/unit and/or counseling patient: Internal Medicine: Result - Labs CBC & Chem 7: 02/10/18 05:33 02/10/18 05:33 Labs: Short CBC 02/09/18 02/10/18 Range/Units 10:04 05:33 WBC 8.3 8.1 (4.3-11.1) K/mcL Hgb 9.2 L 9.0 L (12.9-16.9) g/dL Hct 32.9 L 33.0 L (37.5-50.1) % Plt Count 156 188 (140-400) K/mcL Neutrophils # 5.2 (1.6-8.9) K/mcL BMP 02/09/18 02/10/18 10:04 05:33 Sodium 135 L 137 Potassium 4.4 4.4 Chloride 102 105 Carbon Dioxide 23 22 L BUN 34 H 34 H Creatinine 1.91 H 1.71 H Glucose 150 H 117 H Calcium 8.7 8.8 - ABG Interpretation ABG results: PT/INR, D-dimer PT 20.0 Seconds (9.4-12.1) H 02/06/18 03:24 - VTE Reasons for not Prescribing Prophylaxis: Not indicated-Anticoagulated or INR therapeutic <Sr Giulianamarah - Last Filed: 02/10/18 14:21> (3) Hypertension Qualifiers: Hypertension type: essential hypertension Qualified Code(s): I10 - Essential (primary) hypertension (4) DM type 2 (diabetes mellitus, type 2) Qualifiers: Diabetes mellitus termite exterminator insulin use: without mcfp use Diabetes mellitus complication status: with kidney complications Diabetes mellitus complication detail: with chronic kidney disease Chronic kidney disease stage: stage 3 (moderate) Qualified Code(s): E11.22 - Type 2 diabetes mellitus with diabetic chronic kidney disease; N18.3 - Chronic kidney disease, stage 3 ( moderate) (6) COPD (chronic obstructive pulmonary disease) Qualifiers: COPD type: chronic bronchitis Chronic bronchitis type: simple Qualified Code (s): J41.0 - Simple chronic bronchitis (7) CAD (coronary artery disease) Qualifiers: Coronary Disease-Associated Artery/Lesion type: [place] artery [place] vs. transplanted heart: [place] heart Associated angina: without angina Qualified Code(s): I25.10 - Atherosclerotic heart disease of [place] coronary artery without angina pectoris (8) CHF (congestive heart failure) Qualifiers: Heart failure type: systolic Heart failure chronicity: acute on chronic Qualified Code(s): I50.23 - Acute on chronic systolic (congestive) heart failure <Taylor Barker - Last Filed: 02/10/18 15:50> (1) CHF (congestive heart failure) Qualifiers: Heart failure type: systolic Heart failure chronicity: acute on chronic Qualified Code(s): I50.23 - Acute on chronic systolic (congestive) heart failure (5) Hypertension Qualifiers: Hypertension type: essential hypertension Qualified Code(s): I10 - Essential (primary) hypertension (6) DM type 2 (diabetes mellitus, type 2) Qualifiers: Diabetes mellitus termite exterminator insulin use: without mcfp use Diabetes mellitus complication status: with kidney complications Diabetes mellitus complication detail: with chronic kidney disease Chronic kidney disease stage: stage 3 (moderate) Qualified Code(s): E11.22 - Type 2 diabetes mellitus with diabetic chronic kidney disease; N18.3 - Chronic kidney disease, stage 3 ( moderate) (8) COPD (chronic obstructive pulmonary disease) Qualifiers: COPD type: chronic bronchitis Chronic bronchitis type: simple Qualified Code (s): J41.0 - Simple chronic bronchitis (9) CAD (coronary artery disease) Qualifiers: Coronary Disease-Associated Artery/Lesion type: [place] artery [place] vs. transplanted heart: [place] heart Associated angina: without angina Qualified Code(s): I25.10 - Atherosclerotic heart disease of [place] coronary artery without angina pectoris
[2018-02-10] MEDS: Insulin LISPRO 300 UNITS/3 ML VIAL SQ SCH ×4 (08:34→21:01)
[2018-02-10] MEDS: Isosorbide MONOnitrate (24 HR) 60 MG TAB.ER.24H PO SCH (08:38)
[2018-02-10] MEDS: Ranolazine 500 MG TAB.ER.12H PO SCH ×2 (08:38→20:59)
[2018-02-10] MEDS: *HR* Acetylcysteine 20% 600 MG/3 ML ORAL SYRINGE PO SCH ×2 (08:39→21:01)
[2018-02-10] MEDS: Aspirin Enteric Coated 81 MG Tablet PO SCH (08:40)
[2018-02-10] MEDS: Artificial Tears SOLN 15 ML BOTTLE BOTH EYES SCH ×2 (08:40→21:01)
[2018-02-10] MEDS: *HR* OxyCODONE/APAP 5/325 TABLET PO PRN (11:49)
[2018-02-10] MEDS: *HR* Rivaroxaban 15 MG TABLET PO SCH (17:30)
[2018-02-10] MEDS: *HR* LORazepam 0.5 MG TABLET PO SCH (20:59)
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
[2018-02-11 04:19] LABS: Protein/Creatinine Ratio,Urine 0.27 mg/mg (0.00-0.20)
[2018-02-11 05:06] LABS: Bacteria,Urine None Seen per hpf (None-Few); Bilirubin,Urine Small (Negative); Blood,Urine Negative (Negative); Clarity,Urine Clear (Clear); Color,Urine Dark Yellow (Yellow); Glucose,Urine (UA) Normal (Normal); Hyaline Casts,Urine None Seen per lpf (None-Few); Ketones,Urine Negative (Negative); Leukocyte Esterase,Urine Negative (Negative); Nitrite,Urine Negative (Negative); Protein,Urine 30 mg/dL (Neg-Trace); RBC,Urine 0-3 per hpf (0-3); Specific Gravity,Urine 1.029 (1.010-1.025); Squamous Epithelial Cell,Urine Many per lpf (None-Few); Urobilinogen,Urine Normal (Normal)
[2018-02-11 05:55] LABS: Nucleated Red Blood Cells 0.7 /100 WBC (0); Platelet Count 165 K/mcL (140-400)
[2018-02-11 05:57] LABS: Basophils % 0.2 %; Eosinophils # 0.1 K/mcL (0.0-0.6); Eosinophils % 1.4 %; Hematocrit 32.4 % (37.5-50.1); Immature Granulocytes % 0.5 % (0-4); Lymphocytes # 1.5 K/mcL (0.6-4.6); Lymphocytes % 17.2 %; Mean Corpuscular HGB Conc 27.8 g/dL (31.6-35.5); Mean Corpuscular Hemoglobin 18.1 pg (28.0-33.3); Mean Corpuscular Volume 65.1 fL (83.0-100.0); Monocytes # 0.9 K/mcL (0.0-1.3); Monocytes % 10.8 %; Red Blood Count 4.98 M/mcL (4.19-5.50); Red Cell Distribution Width 22.6 % (11.5-14.5); Segmented Neutrophils % 69.9 %
[2018-02-11 06:14] LABS: Neutrophils # 5.9 K/mcL (1.6-8.9)
[2018-02-11 06:15] LABS: Anisocytosis 3+ (Not Present); Burr Cells 1+ (Not Present); Microcytosis Present (Not Present); Platelet Estimate Normal (Normal); Poikilocytosis 2+ (Not Present); Schistocytes 1+ (Not Present)
[2018-02-11 06:16] LABS: Target Cells 1+ (Not Present)
[2018-02-11 06:23] LABS: Calcium 8.7 mg/dL (8.6-10.3); Potassium 4.5 mEq/L (3.5-5.1)
[2018-02-11 06:51] LABS: Transitional Epi Cells,Urine Few per hpf (None-Few)
[2018-02-11] MEDS: Isosorbide MONOnitrate (24 HR) 60 MG TAB.ER.24H PO SCH (08:29)
[2018-02-11] MEDS: Aspirin Enteric Coated 81 MG Tablet PO SCH (08:29)
[2018-02-11] MEDS: Ranolazine 500 MG TAB.ER.12H PO SCH ×2 (08:29→21:37)
[2018-02-11] MEDS: *HR* Acetylcysteine 20% 600 MG/3 ML ORAL SYRINGE PO SCH ×2 (08:30→21:37)
[2018-02-11] MEDS: Insulin LISPRO 300 UNITS/3 ML VIAL SQ SCH ×4 (08:30→21:38)
[2018-02-11] MEDS: Artificial Tears SOLN 15 ML BOTTLE BOTH EYES SCH ×2 (08:30→21:39)
--- NOTE | 2018-02-11 08:33 | Internal Med Progress Note ---
<Christian Jacobs - Last Filed: 02/11/18 12:27> Hospitalist Progress Note - Encounter Date of Encounter: 02/11/18 Time of Encounter: 08:00 - Subjective Interval History: Patient seen and examined at bedside. He admits to some increasing SOB overnight , and his O2 demand has increased to 5L. He denies wheezing, coughing, fever, chills. Scr down to 1.68 today, diuretics restarted along with albumin. The patient has had decreased urine output during stay but a retroperitoneal ultrasound performed today showed no evidence of obstruction or hydronephrosis. Of note, the patient had a return of his chest pain this morning, described as chest tightness with 6/10 pain, no radiation, no diaphoresis. He described it as equal to or worse than his initial pain that brought him to the ED but similar in nature and location. A stat EKG was ordered and showed no change, troponin was 0.05. He was given Nitro for pain. Will continue to follow. - Exam Vitals: Temp Pulse Resp BP Pulse Ox 97.6 F 94 18 144/82 100 02/11/18 08:07 02/11/18 08:07 02/11/18 08:07 02/11/18 08:07 02/11/18 08:07 Exam: * General: Elderly male sitting comfortably in bed. He does not appear to be in acute distress. * HEENT: Atraumatic and normocephalic. * Cardiovascular: Regular Rate, irregular rythym. S1 and S2 present. * Respiratory: CTAB, no wheezes rales or rhonchi. Distant Breath Sounds * Gastrointestinal: Abdomen is distended. Nontender to palpation. No guarding or rigidity. * Extremities: 2-3+ bilateral LE pitting edema. - Assessment and Plan (1) CHF (congestive heart failure) Current Visit: Yes Status: Chronic Assessment and Plan: Known history of CHF - Patient remains hypervolemic d/t hold on diuretic - Worsening Orthopnea overnight, O2 up to 5L (on 3L at home) - TTE 10/13/17; LVEF 35%. Mildly dilated LV with systolic dysfunction, + and AR - Generalized anasarca on exam; CXR 02/04/18 shows pulmonary edema/cardiomegaly - BNP 401 on admission Plan: - Will continue fluid restriction of 1.5L total intake - Will resume diuretic therapy as FELICIA resolving - Recommend CHF education - IV lasix ordered, continue home meds - Continue daily weights and strict I&O - BLE leg wraps for pitting edema (2) FELICIA (acute kidney injury) Current Visit: Yes Status: Acute Assessment and Plan: Known history of CKD - Patient has had rising Scr following a LHC and diuresis - likely contrast induced nephropathy - Scr trending down; 1.68 today, down from 1.9 - S/P remote nephrectomy, baseline Scr between 1.4-1.7 - Retroperitoneal Ultrasound: no evidence for hydronephrosis - Nephrology Following, recs as follows PLAN: -Will check urine for proteinuria -Will check PAMELA and compelemnts -Will check urine elvia given exposure to diuretics (3) Non-STEMI (non-ST elevated myocardial infarction) Current Visit: Yes Status: Acute Assessment and Plan: -S/P LHC with no interventions made -Chest pain returned today, troponin .05 this morning -EKG unchanged from baseline -Nitro given for pain, will continue to reassess -Plan for aggressive risk factor reduction -On ASA, Statin, BB and ARB Code(s): I21.4 - Non-ST elevation (NSTEMI) myocardial infarction (4) CAD (coronary artery disease) Current Visit: Yes Status: Chronic Assessment and Plan: Known history of CAD - Multiple risk factors including HTN/HLD/DM - Multiple prior WI's (Stent x 10) - Last Stress test 04/17/17: Severe perfusion defects consistent with infarction history - Chest pain intermittent during admission - EKG shows Atrial Flutter with non-specific ST and T changes present on prior studies, likely old WI Plan: - ASA, Statin, BB for risk reduction - Nitro PRN for pain (5) Anasarca Current Visit: Yes Status: Chronic Assessment and Plan: Generalized Anasarca - likely secondary to poorly controlled CHF - No history/evidence of liver failure - Pt Does have h/o Renal Failure, though currently SCr remains near baseline - CXR shows pulmonary edema with trace effusions and cardiomegaly - BNP 401 on admission with report of decreased urine output Plan: - IV lasix ordered - Low Na and High Protein diet encouraged - Continue with Fluid restriction - BLE wraps for peripheral edema (6) CKD (chronic kidney disease), stage III Current Visit: Yes Status: Chronic Assessment and Plan: Known history of CKD - Baseline Scr between 1.5-1.8, currently at 1.68 -Will diurese slowly with lasix and monitor Scr -Avoid nephrotoxins, renally dose medication Code(s): N18.3 - Chronic kidney disease, stage 3 (moderate) (7) Hypertension Current Visit: Yes Status: Chronic Assessment and Plan: BP stable since admission Continue home meds Monitor (8) COPD (chronic obstructive pulmonary disease) Current Visit: Yes Status: Chronic Assessment and Plan: Known history of COPD - Patient complaining of SOB since admission - Wheezes present on exam today in all lung malhotra - On 3L at home, currently requiring 4-5L Plan: - Maintain SpO2 above 88%, titrate back to 3L as tolerated - Duonebs PRN (9) DM type 2 (diabetes mellitus, type 2) Current Visit: Yes Status: Chronic Assessment and Plan: SSI and accuchecks DVT Prophylaxis: Patient is anticoagulated with xarelto. - Time Spent with Patient Total time spent is greater than 50% in coordination of care (as documented) at patient's floor/unit and/or counseling patient: Internal Medicine: Result - Labs CBC & Chem 7: 02/11/18 04:09 02/11/18 04:09 Labs: Short CBC 02/11/18 Range/Units 04:09 WBC 8.5 (4.3-11.1) K/mcL Hgb 9.0 L (12.9-16.9) g/dL Hct 32.4 L (37.5-50.1) % Plt Count 165 (140-400) K/mcL Neutrophils # 5.9 (1.6-8.9) K/mcL BMP 02/11/18 04:09 Sodium 136 Potassium 4.5 Chloride 104 Carbon Dioxide 23 BUN 34 H Creatinine 1.68 H Glucose 128 H Calcium 8.7 Urine 02/11/18 Range/Units 01:01 Urine Color Dark Yellow (Yellow) Urine Clarity Clear (Clear) Urine pH 6.0 (5.0-8.0) pH Units Ur Specific Martin 1.029 H (1.010-1.025) Urine Protein 30 H (Neg-Trace) mg/dL Urine Glucose (UA) Normal (Normal) mg/dL - ABG Interpretation ABG results: PT/INR, D-dimer PT 20.0 Seconds (9.4-12.1) H 02/06/18 03:24 - VTE Reasons for not Prescribing Prophylaxis: Not indicated-Anticoagulated or INR therapeutic Consult Discharge Plan - Plan Referrals: NONE,PCP [Primary Care Provider] - <GiulianaRadha - Last Filed: 02/11/18 14:02> Hospitalist Progress Note - Encounter Date of Encounter: 02/11/18 Time of Encounter: 08:15 - Subjective Interval History: Patient is sitting up in chair. Complains of shortness of breath which began last night and progressively worsening. He also reported some chest pain earlier today after he came back from retroperitoneal ultrasound. His diuretics have been held due to acute kidney injury. He denies any fever or chills. No palpitations. No nausea or vomiting. - Exam Vitals: Temp Pulse Resp BP Pulse Ox 97.9 F 108 18 112/73 100 02/11/18 11:32 02/11/18 11:32 02/11/18 11:32 02/11/18 11:32 02/11/18 11:32 Exam: General: Patient is alert, no acute distress, oriented x 3 Head: atraumatic, normocephalic, Respiratory: Good respiratory effort. Basal crackles. Bilateral wheezing Cardiovascular: Regular rate and rhythm. s1 and s2 No clicks, rubs, gallops, or murmurs. Bilateral pitting pedal edema Abdomen: Abdomen is soft, distended. Bowel sounds are present Musculoskeletal: Spontaneously moving all extremities Skin: warm, dry, intact. Neuro: Alert oriented x 3 normal cranial nerves, no focal deficits Psych: Patient's affect is normal - Assessment and Plan (1) FELICIA (acute kidney injury) Current Visit: Yes Status: Acute Assessment and Plan: Renal function appears to be stabilizing. Nephrology following. Retroperitoneal ultrasound done today. No signs of obstruction. Patient has solitary kidney. (2) CHF (congestive heart failure) Current Visit: Yes Status: Chronic Assessment and Plan: Remains fluid overloaded. Discussed with nephrology. Will start patient on albumin along with Lasix to enable dialysis while awaiting renal dysfunction. Continue to monitor input and output and daily weights. Monitor his panel. Continue fluid restriction. (3) Hypertension Current Visit: Yes Status: Chronic Assessment and Plan: Fairly controlled. Continue current medication regimen. Continue to monitor blood pressure. (4) DM type 2 (diabetes mellitus, type 2) Current Visit: Yes Status: Chronic Assessment and Plan: Controlled with current insulin regimen. Will continue. (5) CKD (chronic kidney disease), stage III Current Visit: Yes Status: Chronic Assessment and Plan: With acute kidney injury. Creatinine appears to be improving slowly. 1.68 today. Will diurese patient with IV Lasix in conjunction with albumin. (6) COPD (chronic obstructive pulmonary disease) Current Visit: Yes Status: Chronic Assessment and Plan: Continue bronchodilators. Continue O2 supplementation. (7) Non-STEMI (non-ST elevated myocardial infarction) Current Visit: Yes Status: Acute Assessment and Plan: Patient reported chest pain earlier today. Troponin 0.05. EKG does not show any significant ST segment changes. Patient had left heart catheterization done earlier this admission and was found to have severe 2 vessel coronary artery disease and recommended medical management. We will continue aspirin, statin, beta morris. Losartan being held due to her acute kidney injury. (8) CAD (coronary artery disease) Current Visit: Yes Status: Chronic Assessment and Plan: Management as above. (9) Anasarca Current Visit: Yes Status: Chronic Assessment and Plan: Started on Lasix plus albumin. Monitor urine output. - Time Spent with Patient Total time spent is greater than 50% in coordination of care (as documented) at patient's floor/unit and/or counseling patient: Internal Medicine: Result - Labs CBC & Chem 7: 02/11/18 04:09 02/11/18 04:09 Labs: Short CBC 02/11/18 Range/Units 04:09 WBC 8.5 (4.3-11.1) K/mcL Hgb 9.0 L (12.9-16.9) g/dL Hct 32.4 L (37.5-50.1) % Plt Count 165 (140-400) K/mcL Neutrophils # 5.9 (1.6-8.9) K/mcL BMP 02/11/18 04:09 Sodium 136 Potassium 4.5 Chloride 104 Carbon Dioxide 23 BUN 34 H Creatinine 1.68 H Glucose 128 H Calcium 8.7 Cardiac Enzymes 02/11/18 Range/Units 10:39 Troponin I 0.05 H* (< 0.04) ng/mL Urine 02/11/18 Range/Units 01:01 Urine Color Dark Yellow (Yellow) Urine Clarity Clear (Clear) Urine pH 6.0 (5.0-8.0) pH Units Ur Specific Martin 1.029 H (1.010-1.025) Urine Protein 30 H (Neg-Trace) mg/dL Urine Glucose (UA) Normal (Normal) mg/dL - ABG Interpretation ABG results: PT/INR, D-dimer PT 20.0 Seconds (9.4-12.1) H 02/06/18 03:24 - Impressions Impressions Retroperitoneum Ultrasound 02/11/18 09:30 IMPRESSION: 1. No evidence of right hydronephrosis without visualization of the left kidney. D/ / Sandoval Hough MD / Sandoval Hough MD Interpreting Provider: Sandoval Hough MD <Christian Jacobs M - Last Filed: 02/11/18 12:27> (1) CHF (congestive heart failure) Qualifiers: Heart failure type: systolic Heart failure chronicity: acute on chronic Qualified Code(s): I50.23 - Acute on chronic systolic (congestive) heart failure (4) CAD (coronary artery disease) Qualifiers: Coronary Disease-Associated Artery/Lesion type: viejas artery [place] vs. transplanted heart: viejas heart Associated angina: without angina Qualified Code(s): I25.10 - Atherosclerotic heart disease of viejas coronary artery without angina pectoris (7) Hypertension Qualifiers: Hypertension type: essential hypertension Qualified Code(s): I10 - Essential (primary) hypertension (8) COPD (chronic obstructive pulmonary disease) Qualifiers: COPD type: chronic bronchitis Chronic bronchitis type: simple Qualified Code (s): J41.0 - Simple chronic bronchitis (9) DM type 2 (diabetes mellitus, type 2) Qualifiers: Diabetes mellitus ad terminal makeup operator insulin use: without senior care use Diabetes mellitus complication status: with kidney complications Diabetes mellitus complication detail: with chronic kidney disease Chronic kidney disease stage: stage 3 (moderate) Qualified Code(s): E11.22 - Type 2 diabetes mellitus with diabetic chronic kidney disease; N18.3 - Chronic kidney disease, stage 3 ( moderate) <Radha Giordano - Last Filed: 02/11/18 14:02> (2) CHF (congestive heart failure) Qualifiers: Heart failure type: systolic Heart failure chronicity: acute on chronic Qualified Code(s): I50.23 - Acute on chronic systolic (congestive) heart failure (3) Hypertension Qualifiers: Hypertension type: essential hypertension Qualified Code(s): I10 - Essential (primary) hypertension (4) DM type 2 (diabetes mellitus, type 2) Qualifiers: Diabetes mellitus ad terminal makeup operator insulin use: without senior care use Diabetes mellitus complication status: with kidney complications Diabetes mellitus complication detail: with chronic kidney disease Chronic kidney disease stage: stage 3 (moderate) Qualified Code(s): E11.22 - Type 2 diabetes mellitus with diabetic chronic kidney disease; N18.3 - Chronic kidney disease, stage 3 ( moderate) (6) COPD (chronic obstructive pulmonary disease) Qualifiers: COPD type: chronic bronchitis Chronic bronchitis type: simple Qualified Code (s): J41.0 - Simple chronic bronchitis (8) CAD (coronary artery disease) Qualifiers: Coronary Disease-Associated Artery/Lesion type: viejas artery [place] vs. transplanted heart: viejas heart Associated angina: without angina Qualified Code(s): I25.10 - Atherosclerotic heart disease of viejas coronary artery without angina pectoris
[2018-02-11] MEDS ORDERED: Furosemide 20 MG/2 ML VIAL IVP ONE (08:59)
[2018-02-11] MEDS ORDERED: Nitroglycerin 0.4 MG TAB.SUBL SL PRN (10:24)
[2018-02-11] MEDS: *HR* OxyCODONE/APAP 5/325 TABLET PO PRN ×2 (10:35→21:47)
[2018-02-11] MEDS ORDERED: Nitroglycerin 0.4 MG TAB.SUBL SL ONE (11:06)
[2018-02-11] MEDS: *HR* Rivaroxaban 15 MG TABLET PO SCH (16:18)
[2018-02-11] MEDS ORDERED: Albumin 25% 25gram/100mL 25 GM/100 ML IV.SOLN IVPB SCH (19:00)
[2018-02-11] MEDS ORDERED: Furosemide 40 MG/4 ML VIAL IVP SCH (21:00)
[2018-02-11] MEDS: *HR* LORazepam 0.5 MG TABLET PO SCH (21:38)
[2018-02-12] MEDS: Albumin 25% 25gram/100mL 25 GM/100 ML IV.SOLN IVPB SCH ×2 (00:02→06:16)
[2018-02-12 04:52] LABS: Eosinophils % 0.3 %; Nucleated Red Blood Cells 0.6 /100 WBC (0)
[2018-02-12 04:53] LABS: Basophils % 0.2 %; Hematocrit 32.7 % (37.5-50.1); Hemoglobin 9.2 g/dL (12.9-16.9); Immature Granulocytes % 0.4 % (0-4); Lymphocytes # 1.1 K/mcL (0.6-4.6); Lymphocytes % 11.1 %; Mean Corpuscular HGB Conc 28.1 g/dL (31.6-35.5); Monocytes % 9.7 %; Platelet Count 182 K/mcL (140-400); Red Blood Count 5.11 M/mcL (4.19-5.50); Red Cell Distribution Width 22.5 % (11.5-14.5); Segmented Neutrophils % 78.3 %
[2018-02-12 05:17] LABS: Neutrophils # 7.8 K/mcL (1.6-8.9)
[2018-02-12 05:49] LABS: Microcytosis Present (Not Present); Poikilocytosis 1+ (Not Present); Polychromasia 1+ (Not Present)
[2018-02-12 05:50] LABS: Ovalocytes 1+ (Not Present); Platelet Estimate Normal (Normal)
--- NOTE | 2018-02-12 07:27 | Discharge Summary ---
<Giulianamarah - Last Filed: 02/12/18 14:33> Orders not resulted at time of discharge: Pending orders 02/11/18 03:35 Immunofixation,Urine (BJP) AM 0400 02/11/18 04:09 PAMELA IgG FAUSTINO rflx IFA AM 0400 Complement Component 3 Routine Complement Component 4 Routine Immunoelectrophoresis AM 0400 Vitamin D 25 Hydroxy AM 0400 Date of Encounter: 02/12/18 Time of Encounter: 14:33 - Discharge Diagnosis (1) Hypertension Status: Chronic Qualifiers: Hypertension type: essential hypertension Qualified Code(s): I10 - Essential (primary) hypertension (2) DM type 2 (diabetes mellitus, type 2) Status: Chronic Qualifiers: Diabetes mellitus detention insulin use: without detention use Diabetes mellitus complication status: with kidney complications Diabetes mellitus complication detail: with chronic kidney disease Chronic kidney disease stage : stage 3 (moderate) Qualified Code(s): E11.22 - Type 2 diabetes mellitus with diabetic chronic kidney disease; N18.3 - Chronic kidney disease, stage 3 ( moderate) (3) CKD (chronic kidney disease), stage III Status: Chronic (4) COPD (chronic obstructive pulmonary disease) Status: Chronic Qualifiers: COPD type: chronic bronchitis Chronic bronchitis type: simple Qualified Code(s): J41.0 - Simple chronic bronchitis (5) Non-STEMI (non-ST elevated myocardial infarction) Status: Acute (6) CAD (coronary artery disease) Status: Chronic Qualifiers: Coronary Disease-Associated Artery/Lesion type: [place] artery [place] vs. transplanted heart: [place] heart Associated angina: without angina Qualified Code(s): I25.10 - Atherosclerotic heart disease of [place] coronary artery without angina pectoris (7) CHF (congestive heart failure) Status: Chronic Qualifiers: Heart failure type: systolic Heart failure chronicity: acute on chronic Qualified Code(s): I50.23 - Acute on chronic systolic (congestive) heart failure (8) Anasarca Status: Chronic (9) FELICIA (acute kidney injury) Status: Acute Hospital course: Mr. Curtis is a 72 year old male - Time Spent with Patient Total time spent providing and/or coordinating discharge services: Greater than 30 minutes (45 min) - Discharge Medications Prescriptions: Furosemide [Lasix] 40 mg PO BID #60 tablet LORazepam [Ativan] 0.5 mg PO HS 2 Days #2 tablet Ranolazine [Ranexa] 500 mg PO BID #60 tab.er.12h Rivaroxaban [Xarelto] 15 mg PO 1700 #30 tablet Home Medications: Buspirone HCl [Buspar] 7.5 mg PO DAILY 11/22/16 [History] Atorvastatin Calcium [Lipitor] 80 mg PO QPM 11/30/16 [History] Carvedilol [Coreg] 6.25 mg PO DAILY 04/21/17 [History] LORazepam [Ativan] 0.5 mg PO HS 04/22/17 [History] Losartan [Cozaar] 25 mg PO DAILY 04/22/17 [History] Oxybutynin [Ditropan] 5 mg PO DAILY 04/22/17 [History] Sertraline [Zoloft] 50 mg PO HS 04/22/17 [History] Aspirin [Lo-Dose Aspirin EC] 81 mg PO DAILY 12/23/17 [History] Docusate Sodium [Dok] 100 mg PO BID 12/23/17 [History] Oxycodone HCl/Acetaminophen [Percocet 5-325 mg Tablet] 1 each PO Q6H PRN 2 Days #8 tablet 12/27/17 [Rx] Dextran 70/Hypromellose [Artificial Tears] 1 drop BOTH EYES BID 02/03/18 [ History] Isosorbide MONOnitrate [Isosorbide Mononitrate ER] 120 mg PO DAILY 02/03/18 [ History] Linagliptin [Tradjenta] 5 mg PO DAILY 02/03/18 [History] Omeprazole [PriLOSEC] 20 mg PO DAILY 02/03/18 [History] Potassium Chloride [K-Tab ER] 20 meq PO DAILY 02/03/18 [History] Tamsulosin [Flomax] 0.4 mg PO DAILY 02/03/18 [History] Furosemide [Lasix] 40 mg PO BID #60 tablet 02/12/18 [Rx] LORazepam [Ativan] 0.5 mg PO HS 2 Days #2 tablet 02/12/18 [Rx] Nitroglycerin 0.4 mg SL Q5MIN PRN tab.subl 02/12/18 [Rx] Ranolazine [Ranexa] 500 mg PO BID #60 tab.er.12h 02/12/18 [Rx] Rivaroxaban [Xarelto] 15 mg PO 1700 #30 tablet 02/12/18 [Rx] Allergies/Adverse Reactions: 3 Allergy/AdvReac Type Severity Reaction Status Date / Time No Known Allergies Allergy Verified 02/03/18 12:34 Date of admission: 02/03/18 22:39 Primary care physician: PCP NONE Consults: 02/05/18 13:09 Consult to Cardiac Rehabilitation-Phase1 [CONS] Routine Comment: Reason for Consult: NSTEMI Call Completed: No 02/09/18 11:57 Consult to Nephrology [CONS] Routine Consulting Provider: Stephan Sherman/KEN/KITTY/LILIA Reason for Consult: Worsening renal function in setting of acute CHF exacerbation. Pt has one kidney Time Notified: 12:12 Call Completed: Yes - Constitutional Vitals: Temp Pulse Resp BP Pulse Ox 97.4 F L 109 19 143/75 100 02/12/18 11:42 02/12/18 11:42 02/12/18 11:42 02/12/18 11:42 02/12/18 11:42 - Patient Status Disposition: Transfer SNF Condition: Fair - Discharge Instructions Follow Up With: Stephan Sherman/KEN/KITTY/LILIA [Provider Group] NONE,PCP [Primary Care Provider] - Additional Instructions: Follow up with your PCP in 3-5 days. Follow up with cardiology as instructed. Continue home medication regimen. Continue taking ranexa 500mg BID. Continue taking xarelto 15mg daily. Take lasix 40mg twice daily. Return to the emergency department if you experience worsening symptoms or if new concerns arise. - Attending Attestation I saw evaluated and examined this patient and my medical decision-making was reviewed with the Resident Physician, Taylor Barker. I agree with the documented findings, disposition and treatment plan as described except to any changes set forth below. We independently had [id number] contact with the patient. 72-year-old male patient with history of coronary artery disease was initially admitted here with acute congestive heart failure and non-ST elevation [place]. He underwent left heart catheterization and was found to have severe coronary artery disease but was recommended medical management. Since then he has been taking Ranexa in addition to aspirin and statin and is also on Xarelto of for anticoagulation for Aflutter. Patient has been fluid overloaded since admission and was initially treated with intravenous Lasix. His kidney function worsened and so his Lasix was held and nephrology consulted. Per nephrology recommendations, patient received albumin and Lasix yesterday. He has had good diuresis so far and wishes to be discharged home today. He does remain at high risk for hospitalization given his multiple comorbidities and his continued severe coronary artery disease. He will follow up with cardiology and nephrology as outpatient for further management. We will also arrange for him to have his basic panel checked in 2-3 days. He will be discharged back to longterm facility. On examination today, patient is awake and alert. 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 He is sitting up in chair. Bilateral lower extremity edema is improved compared to yesterday. Heart sounds were normal. Breath sounds are normal. Patient does have basal crackles. Abdomen is soft, distended. He did report chest pain yesterday and troponins were done which were at 0.05. Lower compared to his earlier troponins from earlier during this hospitalization. He refused repeat troponin that was ordered. He no longer has any chest pain. Recommend continued medical management. <Taylor Barker N - Last Filed: 02/12/18 15:26> - NOTES TO OUTPATIENT PROVIDER Notes to Outpatient Provider: Patient presented with NSTEMI and underwent LHC with no intervention performed. He was grossly fluid overloaded at time of admission, and remained so throughout this hospitalization. His diuretics were held secondary to increasing creatinine, but were restarted prior to discharge. Patient had intermittent SOB during admission secondary to overloaded volume status. Orders not resulted at time of discharge: Pending orders 02/11/18 03:35 Immunofixation,Urine (BJP) AM 0400 02/11/18 04:09 PAMELA IgG FAUSTINO rflx IFA AM 0400 Complement Component 3 Routine Complement Component 4 Routine Immunoelectrophoresis AM 0400 Vitamin D 25 Hydroxy AM 0400 02/12/18 04:06 Basic Metabolic Panel AM 0400 Date of Encounter: 02/12/18 Time of Encounter: 07:27 - Discharge Diagnosis (1) Hypertension Priority: Secondary Status: Chronic Qualifiers: Hypertension type: essential hypertension Qualified Code(s): I10 - Essential (primary) hypertension (2) DM type 2 (diabetes mellitus, type 2) Priority: Secondary Status: Chronic Qualifiers: Diabetes mellitus detention insulin use: without detention use Diabetes mellitus complication status: with kidney complications Diabetes mellitus complication detail: with chronic kidney disease Chronic kidney disease stage : stage 3 (moderate) Qualified Code(s): E11.22 - Type 2 diabetes mellitus with diabetic chronic kidney disease; N18.3 - Chronic kidney disease, stage 3 ( moderate) (3) CKD (chronic kidney disease), stage III Priority: Secondary Status: Chronic (4) COPD (chronic obstructive pulmonary disease) Priority: Secondary Status: Chronic Qualifiers: COPD type: chronic bronchitis Chronic bronchitis type: simple Qualified Code(s): J41.0 - Simple chronic bronchitis (5) Non-STEMI (non-ST elevated myocardial infarction) Priority: Primary Status: Acute (6) CAD (coronary artery disease) Priority: Secondary Status: Chronic Qualifiers: Coronary Disease-Associated Artery/Lesion type: [place] artery [place] vs. transplanted heart: [place] heart Associated angina: without angina Qualified Code(s): I25.10 - Atherosclerotic heart disease of [place] coronary artery without angina pectoris (7) CHF (congestive heart failure) Priority: Secondary Status: Chronic Qualifiers: Heart failure type: systolic Heart failure chronicity: acute on chronic Qualified Code(s): I50.23 - Acute on chronic systolic (congestive) heart failure (8) Anasarca Priority: Secondary Status: Chronic (9) FELICIA (acute kidney injury) Priority: Secondary Status: Acute Hospital course: Mr. Curtis is a 72 year old male with a past medical history of CHF, CAD, [place], HTN , DM, CKD, COPD who presented to [facility] per his nephrologists recommendation on for evaluation of chest pain. He had been experiencing intermittent chest pains for roughly three months of increasing severity. Described as substernal, dull, without radiation, non-exertional, non-radiating, with associated diaphoresis and similar in nature to previous MIs. On presentation in the ED his vitals were stable but he was slightly tachypnic. Physical exam was significant for distant heart sounds with a regular rate but irregularly irregular rythym, course breath sounds without evidence of crackles, +2 pretibial pitting edema and generalized anasarca. EKG revealed an atrial flutter rythym with ventricularly paced beats, no change from prior studies. Troponins trended upwards, 0.29 0.39. He was given ASA 325, started on a heparin drip, and admitted for an NSTEMI. Cardiology was consulted and he was scheduled for a LHC. The procedure was performed 02/06/18 after vitamin K and FFP were given to bring his INR under 1.8. The LHC revealed severe 2 vessel CAD and no interventions were able to be performed. He continued to have intermittent CP during admission and he also experienced some shortness of breath 2/2 volume overload. On 02/08/18, his Lasix had to be held d/t declining renal function and nephrology was consulted. A renal ultrasound was performed and was normal. Nephrology labs still pending at time of discharge. His kidney function did improve and by 02/12/16 his Lasix was restarted. On 02/11/18 he had a return of his chest pain and was given some nitroglycerin with good relief, repeat troponin was 0.05. Repeat troponin was scheduled for 6 hours later; however, patient refused that blood draw and test was not repeated.. 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 - Time Spent with Patient Total time spent providing and/or coordinating discharge services: Date of admission: 02/03/18 22:39 Primary care physician: PCP NONE Consults: 02/05/18 13:09 Consult to Cardiac Rehabilitation-Phase1 [CONS] Routine Comment: Reason for Consult: NSTEMI Call Completed: No 02/09/18 11:57 Consult to Nephrology [CONS] Routine Consulting Provider: Kidney Whit/KEN/KITTY/LILIA Reason for Consult: Worsening renal function in setting of acute CHF exacerbation. Pt has one kidney Time Notified: 12:12 Call Completed: Yes Discharging clinician: Taylor Barker Anticipated date of discharge: 02/12/18 - Constitutional Vitals: Temp Pulse Resp BP Pulse Ox 97.5 F L 105 16 114/79 100 02/12/18 03:44 02/12/18 03:44 02/12/18 03:44 02/12/18 03:44 02/12/18 03:44 General appearance: Present: A&O X 3, obese Exam: General: A&O x 3, NAD, desires to go home Eyes: non-icteric, horizontal nystagmus, bilateral anopsia Throat: mucus membranes dry, trachea midline, no thyromegaly CV: Regular Rate, irregularly irregular rythym, no murmurs RESP: CTAB, no wheezes rales or rhonchi, course breath sounds noted ABD: mildly distended, non-tender, no rebound guarding or rigidity Extremities: BLE edema (+2 pitting pretibial) Psych: normal affect - Patient Status Functional capacity at discharge: uses cane/walker Overall status at discharge: patient is progressing back to baseline - Diet and Activity Activity: ambulate only with your walker, resume usual activities as tolerated, wear oxygen at all times, wear oxygen at night Diet: low fat, low cholesterol, low salt diet - VTE Reasons for not Prescribing Prophylaxis: Not indicated-Anticoagulated or INR therapeutic
[2018-02-12] MEDS ORDERED: Furosemide 40 MG TABLET PO SCH (08:00)
[2018-02-12 08:14] LABS: Potassium 4.6 mEq/L (3.5-5.1)
[2018-02-12] MEDS: Aspirin Enteric Coated 81 MG Tablet PO SCH (09:44)
[2018-02-12] MEDS: Isosorbide MONOnitrate (24 HR) 60 MG TAB.ER.24H PO SCH (09:45)
[2018-02-12] MEDS: Ranolazine 500 MG TAB.ER.12H PO SCH (09:45)
[2018-02-12] MEDS: Artificial Tears SOLN 15 ML BOTTLE BOTH EYES SCH (09:47)
[2018-02-12] MEDS: *HR* Acetylcysteine 20% 600 MG/3 ML ORAL SYRINGE PO SCH (09:47)
[2018-02-12] MEDS: Insulin LISPRO 300 UNITS/3 ML VIAL SQ SCH ×2 (09:47→13:05)
[2018-02-12 11:44] VITALS: BP 143/75
--- NOTE | 2018-02-12 12:49 | Physician Discharge Referral ---
ExtendedCare Referral Info Transfer To: [facility] Provider in Charge after Transfer: PCP Institutional Level of Care: Skilled - Diagnosis (1) Hypertension Priority: Secondary Status: Chronic (2) DM type 2 (diabetes mellitus, type 2) Priority: Secondary Status: Chronic (3) CKD (chronic kidney disease), stage III Priority: Secondary Status: Chronic (4) COPD (chronic obstructive pulmonary disease) Priority: Secondary Status: Chronic (5) Non-STEMI (non-ST elevated myocardial infarction) Priority: Primary Status: Acute (6) CAD (coronary artery disease) Priority: Secondary Status: Chronic (7) CHF (congestive heart failure) Priority: Secondary Status: Chronic (8) Anasarca Priority: Secondary Status: Chronic (9) FELICIA (acute kidney injury) Priority: Secondary Status: Acute - Transfer Medications Prescriptions: Furosemide [Lasix] 40 mg PO BID #60 tablet LORazepam [Ativan] 0.5 mg PO HS 2 Days #2 tablet Ranolazine [Ranexa] 500 mg PO BID #60 tab.er.12h Rivaroxaban [Xarelto] 15 mg PO 1700 #30 tablet Home Medications: Buspirone HCl [Buspar] 7.5 mg PO DAILY 11/22/16 [History] Atorvastatin Calcium [Lipitor] 80 mg PO QPM 11/30/16 [History] Carvedilol [Coreg] 6.25 mg PO DAILY 04/21/17 [History] LORazepam [Ativan] 0.5 mg PO HS 04/22/17 [History] Losartan [Cozaar] 25 mg PO DAILY 04/22/17 [History] Oxybutynin [Ditropan] 5 mg PO DAILY 04/22/17 [History] Sertraline [Zoloft] 50 mg PO HS 04/22/17 [History] Aspirin [Lo-Dose Aspirin EC] 81 mg PO DAILY 12/23/17 [History] Docusate Sodium [Dok] 100 mg PO BID 12/23/17 [History] Oxycodone HCl/Acetaminophen [Percocet 5-325 mg Tablet] 1 each PO Q6H PRN 2 Days #8 tablet 12/27/17 [Rx] Dextran 70/Hypromellose [Artificial Tears] 1 drop BOTH EYES BID 02/03/18 [ History] Isosorbide MONOnitrate [Isosorbide Mononitrate ER] 120 mg PO DAILY 02/03/18 [ History] Linagliptin [Tradjenta] 5 mg PO DAILY 02/03/18 [History] Omeprazole [PriLOSEC] 20 mg PO DAILY 02/03/18 [History] Potassium Chloride [K-Tab ER] 20 meq PO DAILY 02/03/18 [History] Tamsulosin [Flomax] 0.4 mg PO DAILY 02/03/18 [History] Furosemide [Lasix] 40 mg PO BID #60 tablet 02/12/18 [Rx] LORazepam [Ativan] 0.5 mg PO HS 2 Days #2 tablet 02/12/18 [Rx] Nitroglycerin 0.4 mg SL Q5MIN PRN tab.subl 02/12/18 [Rx] Ranolazine [Ranexa] 500 mg PO BID #60 tab.er.12h 02/12/18 [Rx] Rivaroxaban [Xarelto] 15 mg PO 1700 #30 tablet 02/12/18 [Rx] Allergies/Adverse Reactions: 3 Allergy/AdvReac Type Severity Reaction Status Date / Time No Known Allergies Allergy Verified 02/03/18 12:34 - Respiratory Orders Oxygen / L per min (4 L/min) Smoking Cessation: Smoking cessation has been advised. For more information, call the [employer] Tobacco Quit Line at 4-162-PLHP-NOW. - Ancillary Orders May use pressure relief devices daily prn - Advance Directives Code Status: DNR-Arrest (DNR-Comfort Care-Arrest) - Rehabiliation Orders Rehab Potential: Poor Rehab Orders: ROM Exercises, Evaluation for Physical Therapy, Evaluation for Occupational Therapy - Diet Orders Renal, Cardiac CERTIFICATION: I certify that the transfer of the above named patient to an Extended Care Facility is necessary for the continuing treatment of the diagnosis listed. The above information is true and accurate reflection of patient's current condition. Confidential - Redisclosure prohibited without a patient's written consent.
[2018-02-12] MEDS: *HR* OxyCODONE/APAP 5/325 TABLET PO PRN (13:04)
[2018-02-12] MEDS ORDERED: Adenosine 90 MG/30 ML MLS IV ONE (14:42)
--- NOTE | 2018-02-12 15:04 | Nephrology Progress Note ---
Date of Encounter: 02/11/18 Time of Encounter: 12:00 - Assessment and Plan (1) FELICIA (acute kidney injury) Status: Acute SCr noted slightly improved at 1.68, GFR 40 likely due to being off diuretics UOP not documented US of kidney unremarkable Urine shows trace proteinuria, not nephrotic (2) CKD (chronic kidney disease), stage III Status: Chronic Baseline SCr around 1.48, GFR 40s (3) CHF exacerbation Status: Acute Will resume diuretics today and add albumin to regimen Strict I/Os advised Qualifiers: Heart failure type: systolic Qualified Code(s): I50.23 - Acute on chronic systolic (congestive) heart failure Subjective Principal diagnosis: NSTEMI Interval history: Pt seen and examined still wanting to go home as soon as possible. UOP improving per patient but not documented. Objective - Vital Signs Vital signs: Vital Signs Temp Pulse Resp BP Pulse Ox 02/12/18 11:42 97.4 F L 109 19 143/75 100 02/12/18 11:00 96 02/12/18 07:26 97.6 F 108 19 130/88 100 02/12/18 03:44 97.5 F L 105 16 114/79 100 02/11/18 23:00 99 02/11/18 22:57 97.4 F L 90 18 119/80 97 02/11/18 19:20 97.4 F L 106 16 116/69 100 02/11/18 16:13 97.3 F L 104 17 132/84 100 Intake and Output 02/11/18 02/12/18 02/12/18 23:59 07:59 15:59 Intake Total 500 / 500 360 / 360 Output Total 550 / 550 400 / 400 Balance -550 / -550 500 / 500 -40 / -40 Intake: IV Fluids 100 / 100 Flexbumin 25 gm In 100 ml @ 60 100 / 100 mls/hr IVPB Q6HR [facility] Rx#: [id number] Oral 400 / 400 360 / 360 Output: Urine 550 / 550 400 / 400 Other: Meal Lunch Percent of Meal Consumed 100% Stool Size Large Moderate Stool Consistency soft soft Stool Characteristics Normal for Patient Stool Color Brown Brown # Voids 1 # Bowel Movements 1 Weight 124.6 kg Blood Glucose* 200 155 203 Patient Weight 02/12/18 23:59 Weight 124.6 kg - General Appearance General appearance: Present: well-developed, well-nourished EENT: Present: ATNC, mucous membranes moist Neck: Present: no JVD, supple Additional Comments: good areation ant bilat Cardiology: Present: edema (LE edema extending to thighs bilat), normal S1, normal S2 Gastrointestinal: Present: no tenderness, no guarding, obese Integumentary: Present: warm and dry Neurologic: Present: no focal deficit Musculoskeletal: Present: no deformities Psychiatric: Present: mood/affect appropriate, cooperative - Lab 02/12/18 04:06 02/12/18 04:06 Most recent lab results Calcium 9.0 mg/dL (8.6-10.3) 02/12/18 04:06 Magnesium 2.0 mg/dL (1.6-2.6) 02/08/18 05:36 Urine Creatinine 122 mg/dL 02/11/18 03:35 Urine Total Protein 33 mg/dL (1-14) H 02/11/18 03:35 - VTE Reasons for not Prescribing Prophylaxis: Not indicated-Anticoagulated or INR therapeutic Consult Discharge Plan - Plan Additional Instructions: Follow up with your PCP in 3-5 days. Follow up with cardiology as instructed. Continue home medication regimen. Continue taking ranexa 500mg BID. Continue taking xarelto 15mg daily. Take lasix 40mg twice daily. Return to the emergency department if you experience worsening symptoms or if new concerns arise. Referrals: [facility]/KEN/KITTY/LILIA [Provider Group] NONE,PCP [Primary Care Provider] - Prescriptions: Furosemide [Lasix] 40 mg PO BID #60 tablet LORazepam [Ativan] 0.5 mg PO HS 2 Days #2 tablet Ranolazine [Ranexa] 500 mg PO BID #60 tab.er.12h Rivaroxaban [Xarelto] 15 mg PO 1700 #30 tablet
[2018-02-13 10:44] LABS: Urine Collection Duration RANDOM hr; Urine Collection Volume RANDOM mL
[2018-02-13 13:49] LABS: Complement Component 3 140 mg/dL (88-201); Complement Component 4 16 mg/dL (10-40)
[2018-02-13 14:11] LABS: ANA IgG by ELISA NONE DETECTED (None Detected)
[2018-02-14 01:00] LABS: Alpha 2 Globulin (PEP) 0.78 g/dL (0.48-1.05); Beta Globulin (PEP) 0.92 g/dL (0.48-1.10)
--- NOTE | 2018-02-14 11:48 | Electrocardiograph Report ---
[address] [place], [place] [address] Test Date: 2018-02-11 Pat Name: Henri Curtis Department: 113 Room: 3B Gender: M Inside Phone Sales: : 1945 Requested By: Taylor Barker Order Number: [id number] Reading MD: Bryan Watson Measurements Intervals [place] Rate: 105 P: 264 NH: 123 QRS: -48 QRSD: 193 T: 118 QT: 436 QTc: 497 Interpretive Statements ELECTRONIC VENTRICULAR PACEMAKER Electronically Signed On 02-14-2018 11:46:55 EDT by Bryan Watson
[2018-02-16 09:36] LABS: IFE Reflexed NOT DONE
== END 2018-02-12 14:43 | DRG 280 ==
LOC: 3BNU 10:41 → EMEROOARM 10:41 → SUATTDRO 12:27 → 3BNU 14:17 → SUATTDRO 22:39
PROVIDERS: ADMIT Internal Medicine; ATTEND Internal Medicine